=== PATIENT | female | born 1975 | race Caucasian/White ===

== ENCOUNTER → 2016-03-16 | Outpatient (CLI) | payer BC ==
--- NOTE | 2016-03-26 20:54 | P.PN ---
Progress Note - Text DATE OF SERVICE: 03/16/2016. CHIEF COMPLAINT: Follow-up gastric bypass. HISTORY OF PRESENT ILLNESS: Arianna Florian is a 40-year-old female who is status post Erlin-en-Y gastric bypass on 01/03/2016. She has not follow-up in approximately over 2 months at the bariatric center. Separately she comes in with very dark urine including chronic nausea and vomiting, abdominal pain, difficulty with solid foods. She states that she felt a pop along the left upper quadrant incision, which had become moderately painful. Now she presents for further evaluation and management. As a result of her illness, she states that she had missed work on March 14. Now she presents for further evaluation and management. She is presently receiving IV fluid hydration. Body mass index reduced from 43 down to 36. [place] body weight of 154 pounds. Initial weight 260 pounds. She has lost 43 pounds in approximately 2 months. Percent excess weight loss 38%. Since her last follow-up 2 months ago she has lost 30 pounds. PHYSICAL EXAM: VITAL SIGNS: 98.4, 64, 20, 134/82; 5 feet 6 inches, 225 pounds. Body mass index reduced from 43 down to 36. [place] body weight of 154 pounds. GENERAL: Well-developed female in no acute distress. ABDOMEN: No palpable incisional hernias. No signs of infection. MUSCULOSKELETAL: No clubbing, cyanosis, or edema. HEENT: No scleral icterus. Extraocular movements grossly intact. Moist buccal mucosa. NECK: Supple without lymphadenopathy. CHEST: Non-labored respirations with equal bilateral excursions. CARDIOVASCULAR: Regular rate and rhythm. NEURO: No focal or lateralizing signs. Cranial nerves II through XII grossly within normal limits. PSYCH: Appropriate affect. Alert and oriented to person, place and time. LABS: CBC is normal at 12.9. INR normal at 1.0. Electrolytes were within normal limits. Hemoglobin A1c reduced from 6.5 down to 5.1. Blood sugar glucose average is normal at 100. Total iron-binding capacity low at 243. Percent iron saturation low at 19.3%. Total protein low at 5.9. Albumin low at 3.4. HDL low at 39. Parathyroid hormone elevated at 88.4. Trace elements within normal limits. ASSESSMENT: 1. Morbid obesity due to excess calories. 2. Body mass index reduced from 43 down to 36. 3. Status post gastric bypass. 4. Left upper quadrant abdominal pain. 5. Dehydration. 6. Medical noncompliance to her dietary regimen following bariatric procedure. 7. Nausea with vomiting. 8. Dysphagia to solid foods. PLAN: 1. Recommend obtaining a CT of the abdomen and pelvis for increased in severity of her abdominal pain. 2. Also recommend continued IV fluid hydration as she reports very dark urine. 3. She has completed bariatric metabolic panel as she is now approximately 2 months out. 4. She has taken time off work secondary to her illness on March 14. 5. I recommend holding off return to work until primary symptoms are controlled. 6. Also recommend upper endoscopy with balloon dilatation for suspected gastrojejunal stricture given her dysphagia particularly to solid foods. 7. Recommend close observation.
== END | disposition home or self-care (01) ==

== ENCOUNTER → 2016-03-16 | Outpatient (CLI) | payer BC ==
--- NOTE | 2016-03-26 20:55 | P.PN ---
Progress Note - Text DATE OF SERVICE: 03/16/2016. CHIEF COMPLAINT: Follow-up gastric bypass. HISTORY OF PRESENT ILLNESS: Arianna Florian is a 40-year-old female who is status post Erlin-en-Y gastric bypass on 01/03/2016. She has not follow-up in approximately over 2 months at the bariatric center. Separately she comes in with very dark urine including chronic nausea and vomiting, abdominal pain, difficulty with solid foods. She states that she felt a pop along the left upper quadrant incision, which had become moderately painful. Now she presents for further evaluation and management. As a result of her illness, she states that she had missed work on March 14. Now she presents for further evaluation and management. She is presently receiving IV fluid hydration. Body mass index reduced from 43 down to 36. [place] body weight of 154 pounds. Initial weight 260 pounds. She has lost 43 pounds in approximately 2 months. Percent excess weight loss 38%. Since her last follow-up 2 months ago she has lost 30 pounds. PHYSICAL EXAM: VITAL SIGNS: 98.4, 64, 20, 134/82; 5 feet 6 inches, 225 pounds. Body mass index reduced from 43 down to 36. [place] body weight of 154 pounds. GENERAL: Well-developed female in no acute distress. ABDOMEN: No palpable incisional hernias. No signs of infection. MUSCULOSKELETAL: No clubbing, cyanosis, or edema. HEENT: No scleral icterus. Extraocular movements grossly intact. Moist buccal mucosa. NECK: Supple without lymphadenopathy. CHEST: Non-labored respirations with equal bilateral excursions. CARDIOVASCULAR: Regular rate and rhythm. NEURO: No focal or lateralizing signs. Cranial nerves II through XII grossly within normal limits. PSYCH: Appropriate affect. Alert and oriented to person, place and time. LABS: CBC is normal at 12.9. INR normal at 1.0. Electrolytes were within normal limits. Hemoglobin A1c reduced from 6.5 down to 5.1. Blood sugar glucose average is normal at 100. Total iron-binding capacity low at 243. Percent iron saturation low at 19.3%. Total protein low at 5.9. Albumin low at 3.4. HDL low at 39. Parathyroid hormone elevated at 88.4. Trace elements within normal limits. ASSESSMENT: 1. Morbid obesity due to excess calories. 2. Body mass index reduced from 43 down to 36. 3. Status post gastric bypass. 4. Left upper quadrant abdominal pain. 5. Dehydration. 6. Medical noncompliance to her dietary regimen following bariatric procedure. 7. Nausea with vomiting. 8. Dysphagia to solid foods. PLAN: 1. Recommend obtaining a CT of the abdomen and pelvis for increased in severity of her abdominal pain. 2. Also recommend continued IV fluid hydration as she reports very dark urine. 3. She has completed bariatric metabolic panel as she is now approximately 2 months out. 4. She has taken time off work secondary to her illness on March 14. 5. I recommend holding off return to work until primary symptoms are controlled. 6. Also recommend upper endoscopy with balloon dilatation for suspected gastrojejunal stricture given her dysphagia particularly to solid foods. 7. Recommend close observation.
== END | disposition home or self-care (01) ==
CPT/HCPCS: 99211

== ENCOUNTER 2016-03-17 10:22 | Day surgery (SDC) | payer BC ==
[2016-03-16 14:00] VITALS: BMI 36.3
--- NOTE | 2016-03-17 07:11 | P.GSHP ---
History of Present Illness H&P Date: 03/17/16 CHIEF COMPLAINT: Dysphagia. HISTORY OF PRESENT ILLNESS: The patient is a 40-year-old female who presents reports gastroesophageal reflux disease. Upper endoscopy was offered for further evaluation and management. PAST MEDICAL HISTORY: Please see list. PAST SURGICAL HISTORY: Please see list. MEDICATIONS: Please see list. ALLERGIES: Please see list. SOCIAL HISTORY: No illicit drug use FAMILY HISTORY: No reports of Crohn disease or ulcerative colitis. REVIEW OF ORGAN SYSTEMS: CONSTITUTIONAL: No reports of fevers or chills. GI: Denies any blood in stools or constipation. PHYSICAL EXAM: VITAL SIGNS: Stable GENERAL: Well-developed and pleasant in no acute distress. HEENT: No scleral icterus. Extraocular movements grossly intact. Moist buccal mucosa. NECK: Supple without lymphadenopathy. CHEST: Unlabored respirations. Equal bilateral excursions. CARDIOVASCULAR: Regular rate and rhythm. Distal 2+ pulses. ABDOMEN: Soft, nondistended. MUSCULOSKELETAL: No clubbing, cyanosis, or edema. ASSESSMENT: 1. Gastroesophageal reflux disease 2. Dysphagia. PLAN: 1. Recommend proceeding with an upper endoscopy. Past Medical History Past Medical History: Asthma, Hypertension, Thyroid Disorder Additional Past Medical History / Comment(s): spinal stenosis, herniated disk x2 , PREVIOUS HX OF DIABETES, NO PROBLEMS SINCE 50LB WEIGHT LOSS History of Any Multi-Drug Resistant Organisms: None Reported Past Surgical History: Appendectomy, Bariatric Surgery, Tonsillectomy, Tubal Ligation Additional Past Surgical History / Comment(s): left breast biopsy and lumpectomy benign, EGD 11/17/15, 01-03-16 LAP KRISTIN EN Y Past Anesthesia/Blood Transfusion Reactions: Postoperative Nausea & Vomiting ( PONV) Past Psychological History: Anxiety Smoking Status: Never smoker Past Alcohol Use History: Rare Past Drug Use History: None Reported - Past Family History Sister(s) Family Medical History: Cancer Additional Family Medical History / Comment(s): stage 3 melanoma Mother Family Medical History: Hyperlipidemia, Hypertension, Rheumatoid Arthritis (RA) Father Family Medical History: Diabetes Mellitus Additional Family Medical History / Comment(s): MAC DEGENERATION Medications and Allergies Home Medications Medication Instructions Recorded Confirmed Type Albuterol Inhaler [Ventolin Hfa 1 puff INHALATION RT-Q6H PRN 10/27/15 03/16/16 History Inhaler] Hydrochlorothiazide [Hydrodiuril] 50 mg PO DIRECTED PRN 10/27/15 03/16/16 History Losartan [Cozaar] 50 mg PO DAILY 10/27/15 03/16/16 History ALPRAZolam [Xanax] 1 mg PO HS 12/28/15 03/16/16 History Allergies Allergy/AdvReac Type Severity Reaction Status Date / Time amoxicillin trihydrate Allergy Rash/Hives Verified 03/16/16 13:56 [From Augmentin] Penicillins Allergy Rash/Hives Verified 03/16/16 13:56 potassium clavulanate Allergy Rash/Hives Verified 03/16/16 13:56 [From Augmentin]
[~2016-03-17 10:22] MED LIST: LACTATED RINGERS 1,000 ML IV SCH
[2016-03-17 10:37] VITALS: RESP 18; TEMP 97.5
[2016-03-17] MEDS ORDERED: LACTATED RINGERS 1,000 ML IV ONE ×2 (10:42→14:28)
[2016-03-17] MEDS ORDERED: SODIUM CHLORIDE 0.9% 1,000 ML IV SCH (13:47)
[2016-03-17] MEDS ORDERED: fentaNYL (PF) 50 MCG/ML 2 ML AMP IV ONE (14:12)
[2016-03-17] MEDS ORDERED: PROPOFOL 10 MG/ML 20 ML VIAL IV ONE (14:34)
--- NOTE | 2016-03-17 14:35 | P.PCN ---
Date of Procedure: 03/17/16 Description of Procedure: PREOPERATIVE DIAGNOSIS: Dysphagia. s/p Erlin-en-y gastric bypass. Nausea with vomiting. POSTOPERATIVE DIAGNOSIS: Dysphagia. s/p Erlin-en-y gastric bypass. Nausea with vomiting. Gastrojejunal stricture with chronic ulcer without perforation OPERATION: Esophagogastrojejunoscopy with balloon dilatation from 14 to 20 mm. SURGEON: Pita Gramajo MD ANESTHESIA: MAC. INDICATIONS: The patient is a 40-year-old female who presents with a history of dysphagia, gastric bypass including new-onset nausea and vomiting. Benefits and risks of the procedure were described. Informed consent was obtained. DESCRIPTION: The patient was brought into the endoscopy suite and laid in the left lateral decubitus position. After a timeout was confirmed, the procedure was initiated. An Olympus gastroscope was passed along the posterior oropharynx down to the distal esophagus where the squamocolumnar junction was unremarkable. The gastric pouch was entered. A gastrojejunal stricture of 14 mm was found as the adult gastroscope was 9.5 mm in size. A GRID balloon dilator was placed through the scope. Final insufflation up to 20 mm was performed with a total of 2 minutes. The scope was advanced up to 60 cm from the incisors into the Erlin limb. The mucosa of the gastrojejunal anastomosis was intact. However chronic gastrojejunal marginal ulcer was encountered. No full-thickness injury was encountered. The GI tract was desufflated. The patient tolerated the procedure well. FINDINGS: Stricture of approximately 12 mm encountered. Chronic gastrojejunal ulceration encountered. Successful balloon dilatation to 20 mm. RECOMMENDATIONS: Continue with omeprazole. Upper endoscopy as needed. Plan - Discharge Summary Discharge Medication List Albuterol Inhaler [Ventolin Hfa Inhaler] 1 puff INHALATION RT-Q6H PRN 10/27/15 [ History] Hydrochlorothiazide [Hydrodiuril] 50 mg PO DIRECTED PRN 10/27/15 [History] Losartan [Cozaar] 50 mg PO DAILY 10/27/15 [History] ALPRAZolam [Xanax] 1 mg PO HS 12/28/15 [History] HYDROcodone/APAP 7.5-325MG [Jakin 7.5-325] 1 each PO Q4H PRN #60 tab 01/04/16 [ Rx] Omeprazole 40 mg PO DAILY #90 capsule. 01/04/16 [Rx] Follow up Appointment(s)/Referral(s): Pita Gramajo MD [STAFF PHYSICIAN] - 03/20/16 Patient Instructions/Handouts: Esophageal Dilation (DC) Activity/Diet/Wound Care/Special Instructions: Liquid diet today. Regular diet tomorrow. Follow-up in procedures for IV fluids next week. Discharge Disposition: HOME SELF-CARE
[2016-03-17 15:06] VITALS: BP 136/84; PULSE 60
== END 2016-03-17 15:48 | disposition home or self-care (01) ==
LOC: ORWHC2ENDO 10:22
PROVIDERS: ATTEND Surgery Plastic and Reconstructive Surgery
DX: K22.2 Esophageal obstruction (principal); R13.10 Dysphagia, unspecified; K21.9 Gastro-esophageal reflux disease without esophagitis; I10 Essential (primary) hypertension; J45.909 Unspecified asthma, uncomplicated; E11.9 Type 2 diabetes mellitus without complications; E07.9 Disorder of thyroid, unspecified; F41.9 Anxiety disorder, unspecified; M48.00 Spinal stenosis, site unspecified; Z98.84 Bariatric surgery status; Z88.0 Allergy status to penicillin; Z79.82 Long term (current) use of aspirin; Z79.899 Other long term (current) drug therapy
CPT/HCPCS: 81025; 43249; J3010; J2704; C1726

== ENCOUNTER → 2016-03-20 | Outpatient (CLI) | payer BC ==
[2016-03-20 14:08] LABS: Blood Urea Nitrogen 13 mg/dL (7-17); Non-African American GFR(MDRD) >60 (>60 ml/min/1.73 sqM)
--- NOTE | 2016-03-20 14:34 | CT ---
EXAMINATION TYPE: CT abdomen pelvis w con DATE OF EXAM: 03/20/2016 2:15 PM COMPARISON: NONE HISTORY: Epigastric pain CT DLP: 1478.90 mGycm CONTRAST: CT scan of the abdomen and pelvis is performed with Oral Contrast and with IV Contrast, patient injec scott with 100 ml mL of Omnipaque 300. FINDINGS: LUNG BASES-: No visible nodule. No infiltrate. LIVER/GB: No calcified gallstones. No space occupying hepatic lesion. Biliary tree is of normal ca liber. PANCREAS: No inflammation. No distinct mass. SPLEEN: No splenic enlargement. No lesion seen. ADRENALS: No nodule. No thickening. KIDNEYS/BLADDER: No hydronephrosis. No nephrolithiasis. No disctinct renal mass. Urinary bladder g rossly unremarkable. BOWEL: Postoperative changes about the stomach. No evidence for leak or obstruction. No inflammatory process identified. Normal appendix. Normal bowel caliber. No inflammation. GENITAL ORGANS: No gross abnormality. LYMPH NODES: No greater than 1cm abdominal or pelvic lymph nodes are appreciated. AORTA: No significant abnormality. OSSEOUS STRUCTURES: No significant abnormality is seen. OTHER: No significant additional abnormality is seen. IMPRESSION: 1. Postoperative changes about the stomach. No evidence for leak or obstruction. No inflammatory proc ess identified.
== END | disposition home or self-care (01) ==
LOC: RADCTMAIN 12:57
PROVIDERS: ATTEND Surgery Plastic and Reconstructive Surgery
DX: K57.50 Diverticulosis of both small and large intestine without perforation or abscess without bleeding (principal); R10.12 Left upper quadrant pain; R10.13 Epigastric pain; Z98.890 Other specified postprocedural states
CPT/HCPCS: 82565; 84520; 74177; 36415; Q9967; 96360; 96361

== ENCOUNTER 2016-03-29 10:29 | Day surgery (SDC) | payer BC ==
[2016-03-22 17:56] VITALS: BMI 36.3
--- NOTE | 2016-03-29 08:02 | P.GSHP ---
History of Present Illness H&P Date: 03/29/16 CHIEF COMPLAINT: Cholecystitis HISTORY OF PRESENT ILLNESS: The patient is a 40-year-old female who presents with history of epigastric including right upper quadrant abdominal pain and clinical history of cholecystitis. Now she presents for surgical intervention. PAST MEDICAL HISTORY: Please see list PAST SURGICAL HISTORY: Please see list MEDICATIONS: Please see list ALLERGIES: Denies. SOCIAL HISTORY: No illicit drug use or recent tobacco use FAMILY HISTORY: Pertinent for gallbladder disease REVIEW OF ORGAN SYSTEMS: CONSTITUTIONAL: No reports of fevers or chills. HEENT: Denies any troubles with the vision or hearing. ENDOCRINE: No reports of hypothyroidism. No diabetes. RESPIRATORY: No recent pneumonias. CARDIOVASCULAR: Denies chest pain or palpitations GI: No blood in stools or constipation. MUSCULOSKELETAL: Has occasional joint pain including back pain. NEURO: No seizure disorders or headaches. No recent stroke. PSYCH: No depression or suicidal ideation. HEMATOLOGIC: No personal or family history of DVTs or pulmonary emboli. PHYSICAL EXAM: VITAL SIGNS: Afebrile vital signs stable GENERAL: Well-developed pleasant in no acute distress. HEENT: No scleral icterus. Extraocular movements grossly intact. Moist buccal mucosa. NECK: Supple without lymphadenopathy. CHEST: Unlabored respirations. Equal bilateral excursions. CARDIOVASCULAR: Regular rate regular rhythm rhythm. Distal 2+ pulses. ABDOMEN: Soft, nondistended. Tender along the epigastrium and right upper quadrant. MUSCULOSKELETAL: No clubbing, cyanosis, or edema. NEURO: Cranial nerves II to XII within normal limits. No focal or lateralizing signs. PSYCH: Alert and oriented to person, place and time. ASSESSMENT: 1. Epigastric and right upper quadrant abdominal pain 2. Chronic cholecystitis 3. Symptomatic gallstones. PLAN: 1. Will need a laparoscopic cholecystectomy possible open. Benefits and risks were described. 2. Heparin for DVT prophylaxis 5000 units. 3. Antibiotic prophylaxis. Past Medical History Past Medical History: Asthma, Hypertension Additional Past Medical History / Comment(s): spinal stenosis, herniated disk x2 , previous hx of thyroid problems, PREVIOUS HX OF DIABETES, NO PROBLEMS SINCE 50LB WEIGHT LOSS History of Any Multi-Drug Resistant Organisms: None Reported Past Surgical History: Appendectomy, Bariatric Surgery, Tonsillectomy, Tubal Ligation Additional Past Surgical History / Comment(s): left breast biopsy and lumpectomy benign, EGD 11/17/15, 01-03-16 LAP KRISTIN EN Y, EGD 03-17-15 WITH DILATION Past Anesthesia/Blood Transfusion Reactions: Postoperative Nausea & Vomiting ( PONV) Past Psychological History: Anxiety Smoking Status: Never smoker Past Alcohol Use History: Rare Past Drug Use History: None Reported - Past Family History Sister(s) Family Medical History: Cancer Additional Family Medical History / Comment(s): stage 3 melanoma Mother Family Medical History: Hyperlipidemia, Hypertension, Rheumatoid Arthritis (RA) Father Family Medical History: Diabetes Mellitus Additional Family Medical History / Comment(s): MAC DEGENERATION Medications and Allergies Home Medications Medication Instructions Recorded Confirmed Type Albuterol Inhaler [Ventolin Hfa 1 puff INHALATION RT-Q6H PRN 10/27/15 03/22/16 History Inhaler] Hydrochlorothiazide [Hydrodiuril] 50 mg PO DIRECTED PRN 10/27/15 03/22/16 History Losartan [Cozaar] 50 mg PO DAILY 10/27/15 03/22/16 History ALPRAZolam [Xanax] 1 mg PO HS 12/28/15 03/22/16 History Allergies Allergy/AdvReac Type Severity Reaction Status Date / Time amoxicillin trihydrate Allergy Rash/Hives Verified 03/22/16 17:52 [From Augmentin] Penicillins Allergy Rash/Hives Verified 03/22/16 17:52 potassium clavulanate Allergy Rash/Hives Verified 03/22/16 17:52 [From Augmentin]
[~2016-03-29 10:29] MED LIST changes: +CLINDAMYCIN 900 MG in DEXTROSE 5% IN WATER 50 ML IVPB ONE; +DEXAMETHASONE SOD PHOSPHATE 10 MG/ML 1 ML VIAL IV ONE; +HEPARIN SODIUM,PORCINE 5,000 UNIT/ML 1 ML VIAL SQ ONE; +LIDOCAINE 1% 20 ML VIAL (10MG/ML) FOR IV START INTRADERMA PRN; +MIDAZOLAM 2 MG/2 ML VIAL IV PRN; +ONDANSETRON 4 MG/2 ML VIAL IVP ONE; +SCOPOLAMINE 1.5MG/72HR PATCH TRANSDERM ONE
[2016-03-29 10:55] VITALS: RESP 16
[2016-03-29] MEDS ORDERED: fentaNYL (PF) 50 MCG/ML 2 ML AMP ONE (11:25)
[2016-03-29] MEDS ORDERED: NEOSTIGMINE 1 MG/ML 10 ML VIAL ONE (11:25)
[2016-03-29] MEDS ORDERED: MIDAZOLAM 2 MG/2 ML VIAL ONE (11:25)
[2016-03-29] MEDS ORDERED: SUCCINYLCHOLINE CHLORIDE 100 MG/5 ML SYR IV ONE (11:25)
[2016-03-29] MEDS ORDERED: LIDOCAINE 1% INJ 10MG/ML (20 ML MDV) ONE (11:25)
[2016-03-29] MEDS ORDERED: GLYCOPYRROLATE 0.2 MG/ML 2 ML VIAL ONE (11:25)
[2016-03-29] MEDS ORDERED: ROCURONIUM BROMIDE 10 MG/ML 10 ML VIAL IV ONE (11:25)
[2016-03-29] MEDS ORDERED: PROPOFOL 10 MG/ML 20 ML VIAL IV ONE (11:25)
[2016-03-29] MEDS ORDERED: BUPIVACAIN-EPI 0.25%-1:200,000 30 ML VIAL SQ ONE ×2 (11:45→11:47)
--- NOTE | 2016-03-29 12:15 | P.OP ---
Date of Procedure: 03/29/16 Description of Procedure: SURGEON: JAMIL DELUCA MD SHOP MANAGER: None. PREOPERATIVE DIAGNOSES: 1. Chronic Cholecystitis. 2. Essential hypertension. 3. Morbid obesity, BMI 36.3. 4. History of sleeve gastrectomy. POSTOPERATIVE DIAGNOSES: 1. Chronic Cholecystitis. 2. Essential hypertension. 3. Morbid obesity, BMI 36.3. 4. History of sleeve gastrectomy. 5. Symptomatic gallstones. OPERATION: Laparoscopic cholecystectomy ANESTHESIA: General with 30 mL 0.25% Marcaine with epinephrine. ESTIMATED BLOOD LOSS: 10 mL. SPECIMENS REMOVED: Gallbladder. COMPLICATIONS: None. INDICATIONS: The patient is a 40-year-old female who presents with chronic cholecystitis. Surgical intervention with a laparoscopic cholecystectomy was described at length including injury to the biliary tree, bleeding, infection, need for further surgery. Informed consent was obtained. DESCRIPTION OF THE PROCEDURE: The patient was brought to the operating room, laid in supine position. After general induction, the abdomen was prepped and draped in a standard sterile fashion. Prior to incision, a timeout protocol was confirmed with surgical team regarding patient's name, procedure to be performed including preoperative medications for which she had received heparin 5000 units subcutaneously as well as bilateral SCDs for DVT prophylaxis. A transverse 5 mm incision was made above the umbilicus and off to the right of the midline. Please note the skin was localized prior to incision. A 0 degree 5-mm laparoscopic trocar entry was performed and entered into the peritoneal cavity. Diagnostic laparoscopy confirmed no injury to bowel, viscera or mesentery. The liver serosa was completely unremarkable. Next, two 5 mm trocars were placed along the right costal margin followed by a 11 mm port at the left upper quadrant. The patient was placed in steep reverse Trendelenburg position with the right side up. The gallbladder fundus was retracted over the dome of the liver. Initial attention was brought to the infundibulum which was gently retracted in the inferior lateral approach. Using a Kittner, the cystic duct including the cystic artery was carefully skeletonized. Using a large clip select banker 2 clips were placed proximally, and 2 clip was placed distally along the cystic duct and then cut. Again care was taken to avoid any injury to the biliary tree as the common bile duct was clearly visualized during this portion of dissection. Next, the cystic artery was clipped twice proximally, once distally and then cauterized. The cystic duct was dilated at 7 mm. The cystic structure was divided using a Harmonic scalpel. Electro-Bovie cautery was used to remove the gallbladder from the hepatic fossa without decompression of the gallbladder. Hemostasis was checked and found to be adequate. The gallbladder was removed from the abdominal cavity using an Endo Catch bag and passed off for further pathological analysis. All instruments and pneumoperitoneum were removed from the abdominal cavity. The fascial defect was less than 8 mm for the 11-mm port site. The rest of incisions were reapproximated using 4-0 Monocryl in an interrupted subcuticular fashion. A total of 30 mL of 0.25% Marcaine with epinephrine was infiltrated to all wounds for postop analgesia. Dermabond was applied to the skin. At the end of the procedure, needle, sponge, and instrument count was verified correct by certified surgical first assistant. The patient had tolerated the procedure well and was taken to postanesthesia care unit in stable condition. Intraoperative films were discussed and reviewed with the patient's family who were pleased with the level of care. FINDINGS: 1. Chronic cholecystitis. 2. Unremarkable liver surface. 3. Palpated 1 cm gallstone. Plan - Discharge Summary Discharge Medication List Albuterol Inhaler [Ventolin Hfa Inhaler] 1 puff INHALATION RT-Q6H PRN 10/27/15 [ History] Hydrochlorothiazide [Hydrodiuril] 50 mg PO DIRECTED PRN 10/27/15 [History] Losartan [Cozaar] 50 mg PO DAILY 10/27/15 [History] ALPRAZolam [Xanax] 1 mg PO HS 12/28/15 [History] HYDROcodone/APAP 7.5-325MG [[place] 7.5-325] 1 each PO Q4H PRN #60 tab 01/04/16 [ Rx] Omeprazole 40 mg PO DAILY #90 capsule. 01/04/16 [Rx] Patient Instructions/Handouts: Scopolamine (Absorbed through the skin)
[2016-03-29] MEDS ORDERED: HYDROcodone/APAP 5-325MG 1 EACH TAB PO PRN (12:18)
[2016-03-29] MEDS ORDERED: NALOXONE 0.4 MG/ML 1 ML VIAL IV PRN (12:18)
[2016-03-29] MEDS ORDERED: PROMETHAZINE 25 MG TAB PO PRN (12:18)
[2016-03-29 12:35] VITALS: TEMP 97.8
[2016-03-29 12:41] LABS: Glucose,Whole Blood 109 mg/dL (75-99)
[2016-03-29] MEDS: HYDROmorphone 1 MG/ML 1 ML SYRINGE IVP PRN ×3 (12:50→13:18)
[2016-03-29] MEDS ORDERED: LACTATED RINGERS 1,000 ML IV ONE (13:31)
[2016-03-29] MEDS ORDERED: PROMETHAZINE INJ 25 MG/ML 1 ML VIAL IVPB ONE (14:35)
[2016-03-29] MEDS ORDERED: HYDROcodone/APAP 5-325MG 1 EACH TAB PO ONE (15:20)
[2016-03-29 15:49] VITALS: BP 131/77; PULSE 54
== END 2016-03-29 16:08 | disposition home or self-care (01) ==
LOC: OR 10:29
PROVIDERS: ATTEND Surgery Plastic and Reconstructive Surgery
DX: K80.10 Calculus of gallbladder with chronic cholecystitis without obstruction (principal); I10 Essential (primary) hypertension; E66.01 Morbid (severe) obesity due to excess calories; Z68.36 Body mass index [BMI] 36.0-36.9, adult; Z98.84 Bariatric surgery status; J45.909 Unspecified asthma, uncomplicated; Z79.899 Other long term (current) drug therapy; Z88.0 Allergy status to penicillin; F41.9 Anxiety disorder, unspecified
CPT/HCPCS: 81025; 88304; 47562; J2250; J1644; J1100; J2550; J2710; J2405; J2001; J3010; J1170; J0330; J2704

== ENCOUNTER → 2016-08-02 | Outpatient (CLI) | payer BC ==
[2016-08-02 13:42] VITALS: BP 142/88; PULSE 65; RESP 16; TEMP 97.9
[2016-08-02 14:07] VITALS: BMI 29.5
[2016-08-02 16:05] LABS: CH 30.4; CHCM 33.1; HCT 43.8 % (34.0-46.0); HDW 2.46; HGB 14.5 gm/dL (11.4-16.0); MCH 30.5 pg (25.0-35.0); MCHC 33.1 g/dL (31.0-37.0); MCV 92.1 fL (80.0-100.0); Mean Platelet Volume 7.6; RBC 4.75 m/uL (3.80-5.40); RDW 13.4 % (11.5-15.5)
[2016-08-02 16:11] LABS: Prothrombin Time 10.6 sec (9.0-12.0)
[2016-08-02 16:34] LABS: ALT 27 U/L (9-52); AST 19 U/L (14-36); Alkaline Phosphatase 85 U/L (38-126); Anion Gap 10 mmol/L; Blood Urea Nitrogen 12 mg/dL (7-17); Calcium 9.7 mg/dL (8.4-10.2); Carbon Dioxide 27 mmol/L (22-30); Chloride 104 mmol/L (98-107); Cholesterol 137 mg/dL (<200); Glucose 83 mg/dL (74-99); HDL Cholesterol 60 mg/dL (40-60); Iron 56 ug/dL (37-170); Magnesium 1.9 mg/dL (1.6-2.3); Non-African American GFR(MDRD) >60 (>60 ml/min/1.73 sqM); Phosphorous 4.1 mg/dL (2.5-4.5); Potassium 4.3 mmol/L (3.5-5.1); Sodium 141 mmol/L (137-145); Total Bilirubin 0.4 mg/dL (0.2-1.3); Total Protein 7.1 g/dL (6.3-8.2); Triglycerides 76 mg/dL (<150)
[2016-08-02 16:45] LABS: Prealbumin 21 mg/dL (18-36); Total Iron Binding Capacity 259 ug/dL (265-497)
[2016-08-02 17:33] LABS: Vitamin B12 239 pg/mL (239-931)
[2016-08-02 20:54] LABS: Hemoglobin A1C 5.1 % (4.2-6.1)
[2016-08-08 15:12] LABS: Selenium 149 mcg/L (63-160)
== END | disposition home or self-care (01) ==
LOC: BARWHC3 13:24
PROVIDERS: ATTEND Surgery Plastic and Reconstructive Surgery
DX: E66.01 Morbid (severe) obesity due to excess calories (principal); Z68.29 Body mass index [BMI] 29.0-29.9, adult; Z71.3 Dietary counseling and surveillance
CPT/HCPCS: 36415; 80053; 80061; 82306; 82525; 82607; 82728; 82746; 83036; 83540; 83550; 83735; 83970; 84100; 84134; 84255; 84425; 84443; 84590; 84630; 85027; 85610; 85730; 97803; 99211

== ENCOUNTER → 2017-01-31 | Outpatient (CLI) | payer BC ==
[2017-01-31 16:11] VITALS: BP 159/89; PULSE 56; TEMP 97.5; BMI 26.3
[2017-01-31 17:52] LABS: CH 30.2; CHCM 33.1; HCT 43.4 % (34.0-46.0); HDW 2.37; HGB 13.9 gm/dL (11.4-16.0); MCH 29.4 pg (25.0-35.0); MCV 91.9 fL (80.0-100.0); Mean Platelet Volume 7.9; RBC 4.72 m/uL (3.80-5.40); WBC 8.9 k/uL (3.8-10.6)
[2017-01-31 18:01] LABS: Partial Thromboplastin Time 24.7 sec (22.0-30.0); Prothrombin Time 9.8 sec (9.0-12.0)
[2017-01-31 18:03] LABS: ALT 36 U/L (9-52); AST 19 U/L (14-36); Alkaline Phosphatase 89 U/L (38-126); Anion Gap 11 mmol/L; Blood Urea Nitrogen 12 mg/dL (7-17); Calcium 9.6 mg/dL (8.4-10.2); Carbon Dioxide 29 mmol/L (22-30); Chloride 102 mmol/L (98-107); Cholesterol 160 mg/dL (<200); Glucose 81 mg/dL (74-99); HDL Cholesterol 75 mg/dL (40-60); Non-African American GFR(MDRD) >60 (>60 ml/min/1.73 sqM); Sodium 142 mmol/L (137-145); Total Bilirubin 0.3 mg/dL (0.2-1.3); Total Protein 7.2 g/dL (6.3-8.2)
[2017-02-01 01:09] LABS: Iron Saturation 12.31 (12.00-45.00); Iron(FE) 33 ug/dL (50-170); Total Iron Binding Capacity 268 ug/dL (228-460)
[2017-02-07 18:30] LABS: Selenium 149 mcg/L (63-160)
--- NOTE | 2017-03-17 21:35 | P.PN ---
Subjective Progress Note Date: 01/31/17 DATE OF SERVICE: 01/31/2017. CHIEF COMPLAINT: Follow-up gastric bypass. HISTORY OF PRESENT ILLNESS: HISTORY OF PRESENT ILLNESS: Arianna Florian is a 41- year-old female who is status post Erlin-en-Y gastric bypass on 01/03/2016. She is over 1 year out. She reports feeling very tired. She has lost over 100+ pounds. She reports her back pain has started as a result of her abdominal skin. Her diabetes is completely resolved as of July 2016. She is off all blood pressure medications. She has decreased use of her inhalers. She is off Artemas. She comes in with severe and chronic skin condition of her abdomen otherwise panniculitis. She has been on nystatin powder for well over a year. Now she presents for further evaluation and management. Body mass index reduced from 43.2 to 26.3. [place] body weight of 154 pounds. Initial weight 269 pounds. She has lost 105 pounds in 13 months. Percent excess weight loss 91%. She has lost also another 20 pounds in 6 months. PAST MEDICAL HISTORY: 1. Anxiety. 2. Asthma. 3. Hypertension, resolved. 4. Insulin resistance, resolved. 5. Hypothyroidism. 6. Vitamin D deficiency. 7. Chronic back pain. 8. Diabetes type 2, resolved. 9. Depression 10. Panniculitis. PAST SURGICAL HISTORY: 1. Appendectomy. 2. Tonsillectomy. 3. Tubal ligation. 4. Left breast biopsy with lumpectomy. 5. Upper endoscopy. 6. Laparoscopic cholecystectomy. MEDICATIONS: 1. Albuterol inhaler. 2. Xanax. 3. Ultram. 4. Lexapro. ALLERGIES: 1. AUGMENTIN. 2. PENICILLIN. SOCIAL HISTORY: Lifelong non tobacco user. FAMILY HISTORY: Pertinent for diabetes, including obesity. REVIEW OF SYSTEMS: GASTROINTESTINAL: Gastroesophageal reflux disease now resolved. No reports of dumping syndrome. RESPIRATORY: History of obstructive sleep apnea now completely resolved. MUSCULOSKELETAL: Has diffuse osteoarthritis with increased lower back pain. ENDOCRINE: History of diabetes now resolved. Has hypothyroidism. CONSTITUTIONAL: Body mass index reduced from 43.2 to 26.3. [place] body weight of 154 pounds. Initial weight 269 pounds. She has lost 105 pounds in approximately 13 months. Percent excess weight loss 91 %. She has lost also another 20 pounds in 6 months. She is 10 pounds overweight. HEENT: No reports of active dysphagia. No reports of troubles with vision or hearing. CARDIOVASCULAR: Hypertension resolved. No reports of chest pain or heart attack. NEURO: No reports of stroke or seizure disorders. PSYCH: No reports of depression with suicidal ideation. HEMATOLOGIC: No reports of DVTs or pulmonary emboli. PHYSICAL EXAM: VITAL SIGNS: 5 feet 6.25 inches, 164 pounds. Vital Signs Temp 97.5 F L 01/31/17 16:07 Pulse 56 L 01/31/17 16:07 Resp BP 159/89 01/31/17 16:07 Pulse Ox GENERAL: Well-developed female in no acute distress. ABDOMEN: No palpable incisional hernias. Moderate panniculitis. Weight of pannus over 8 pounds. Pannus hangs over her pubis 10 cm. MUSCULOSKELETAL: No clubbing, cyanosis, or edema. HEENT: No scleral icterus. Extraocular movements grossly intact. Moist buccal mucosa. NECK: Supple without lymphadenopathy. CHEST: Non-labored respirations with equal bilateral excursions. CARDIOVASCULAR: Regular rate and rhythm. NEURO: No focal or lateralizing signs. Cranial nerves II through XII grossly within normal limits. PSYCH: Appropriate affect. Alert and oriented to person, place and time. SKIN: Good skin turgor. Well perfused. ASSESSMENT: 1. Morbid obesity due to excess calories. 2. Body mass index 43.2 decreased to 26.3. 3. Dietary surveillance and counseling. 4. Depression, stable 5. Hypothyroidism. 6. Hypertensive heart disease, resolved. 7. Osteoarthritis of the lower back. 8. Osteoarthritis of the right knee, resolved. 9. History of bilateral lower extremity edema, resolved. 10. Diabetes type 2, non-insulin dependent without complication, resolved. 11. Obstructive sleep apnea, resolved. 12. Panniculitis. 13. Status post gastric bypass. 14. Status post massive weight loss, 105 pounds. PLAN: 1. Recommend bariatric metabolic panel. 2. She has lost over 100+ pounds in over a year. Separately, she has severe panniculitis. Despite this treatment with nystatin powder, recommend evaluation for panniculectomy. 3. For her weight loss, she still continues to lose weight. Recommend stable weight loss prior to panniculectomy. 4. Inpatient hospitalization more than 2 nights described. 5. DVT prophylaxis. 6. Antibiotic prophylaxis. 7. Benefits and risks of panniculectomy including but not limited to bleeding, infection, cosmetic deformity, flap failure, seromas, placement JOHANNY drains were described in detail including loss of umbilicus, and chronic pain were described. Objective - Vital Signs Vital signs: Vital Signs Temp 97.5 F L 01/31/17 16:07 Pulse 56 L 01/31/17 16:07 Resp BP 159/89 01/31/17 16:07 Pulse Ox Intake & Output 01/30/17 01/31/17 01/31/17 18:59 06:59 18:59 Weight 74.48 kg - Labs CBC & Chem 7: 01/31/17 17:05 01/31/17 17:05
--- NOTE | 2017-03-17 21:37 | P.PN ---
Progress Note - Text Progress Note Date: 01/31/17 Laboratory Last Values WBC 8.9 k/uL (3.8-10.6) 01/31/17 17:05 RBC 4.72 m/uL (3.80-5.40) 01/31/17 17:05 Hgb 13.9 gm/dL (11.4-16.0) 01/31/17 17:05 Hct 43.4 % (34.0-46.0) 01/31/17 17:05 MCV 91.9 fL (80.0-100.0) 01/31/17 17:05 MCH 29.4 pg (25.0-35.0) 01/31/17 17:05 MCHC 32.0 g/dL (31.0-37.0) 01/31/17 17:05 RDW 14.0 % (11.5-15.5) 01/31/17 17:05 Plt Count 353 k/uL (150-450) 01/31/17 17:05 PT 9.8 sec (9.0-12.0) 01/31/17 17:05 INR 1.0 (<1.2) 01/31/17 17:05 APTT 24.7 sec (22.0-30.0) 01/31/17 17:05 Sodium 142 mmol/L (137-145) 01/31/17 17:05 Potassium 4.0 mmol/L (3.5-5.1) 01/31/17 17:05 Chloride 102 mmol/L (98-107) 01/31/17 17:05 Carbon Dioxide 29 mmol/L (22-30) 01/31/17 17:05 Anion Gap 11 mmol/L 01/31/17 17:05 BUN 12 mg/dL (7-17) 01/31/17 17:05 Creatinine 0.70 mg/dL (0.52-1.04) 01/31/17 17:05 Est GFR (MDRD) Af Amer >60 (>60 ml/min/1.73 sqM) 01/31/17 17:05 Est GFR (MDRD) Non-Af >60 (>60 ml/min/1.73 sqM) 01/31/17 17:05 Glucose 81 mg/dL (74-99) 01/31/17 17:[address] Glu mg/dL 105 01/31/17 17:05 Hemoglobin A1c 5.3 % (4.0-6.0) 01/31/17 17:05 Calcium 9.6 mg/dL (8.4-10.2) 01/31/17 17:05 Phosphorus 4.0 mg/dL (2.5-4.5) 01/31/17 17:05 Magnesium 2.0 mg/dL (1.6-2.3) 01/31/17 17:05 Iron 33 ug/dL (50-170) L 01/31/17 17:05 TIBC 268 ug/dL (228-460) 01/31/17 17:05 Iron Saturation 12.31 (12.00-45.00) 01/31/17 17:05 Ferritin 52.7 ng/mL (10.0-291.0) 01/31/17 17:05 Total Bilirubin 0.3 mg/dL (0.2-1.3) 01/31/17 17:05 AST 19 U/L (14-36) 01/31/17 17:05 ALT 36 U/L (9-52) 01/31/17 17:05 Alkaline Phosphatase 89 U/L (38-126) 01/31/17 17:05 Total Protein 7.2 g/dL (6.3-8.2) 01/31/17 17:05 Albumin 4.2 g/dL (3.5-5.0) 01/31/17 17:05 Prealbumin 23.0 mg/dL (18.0-42.0) 01/31/17 17:05 Triglycerides 59 mg/dL (<150) 01/31/17 17:05 Cholesterol 160 mg/dL (<200) 01/31/17 17:05 LDL Cholesterol, Calc 73 mg/dL (0-99) 01/31/17 17:05 HDL Cholesterol 75 mg/dL (40-60) H 01/31/17 17:05 Vitamin A 43 ug/dL (38-106) 01/31/17 17:05 Vitamin B1 62 ug/L (38-122) 01/31/17 17:05 Vitamin B12 243.0 pg/mL (200.0-944.0) 01/31/17 17:05 Vitamin D 25-Hydroxy 28.2 ng/mL (30.0-100.0) L 01/31/17 17:05 Folate >24.0 ng/mL 01/31/17 17:05 TSH 3.390 mIU/L (0.465-4.680) 01/31/17 17:05 PTH Intact 43.2 pg/mL (14.0-72.0) 01/31/17 17:05 Copper 1469 ug/L (810-1990) 01/31/17 17:05 Selenium 149 mcg/L (63-160) 01/31/17 17:05 Zinc 81 ug/dL (60-130) 01/31/17 17:05 Findings consistent with iron deficiency anemia, vitamin D deficiency.
== END | disposition home or self-care (01) ==
LOC: BARWHC3 14:37
PROVIDERS: ATTEND Surgery Plastic and Reconstructive Surgery
DX: E66.01 Morbid (severe) obesity due to excess calories (principal); E89.1 Postprocedural hypoinsulinemia; D50.8 Other iron deficiency anemias; K90.89 Other intestinal malabsorption; E55.9 Vitamin D deficiency, unspecified; K76.9 Liver disease, unspecified; T56.894A Toxic effect of other metals, undetermined, initial encounter
CPT/HCPCS: 36415; 80053; 80061; 82306; 82525; 82607; 82728; 82746; 83036; 83540; 83550; 83735; 83970; 84100; 84134; 84255; 84425; 84443; 84590; 84630; 85027; 85610; 85730; 97803; 99211

== ENCOUNTER → 2017-03-14 | Outpatient (CLI) | payer BC ==
[2017-03-14 14:02] VITALS: BP 147/90; PULSE 72; RESP 16; TEMP 98; BMI 25.6
--- NOTE | 2017-04-28 21:34 | P.PN ---
Subjective Progress Note Date: 03/14/17 DATE OF SERVICE: 03/14/2017 CHIEF COMPLAINT: Panniculitis HISTORY OF PRESENT ILLNESS: HISTORY OF PRESENT ILLNESS: Arianna Florian is a 41- year-old female who is status post Erlin-en-Y gastric bypass on 01/03/2016. She is over 1 year out. She has lost 109 pounds. She has also another 4 pounds in 1 month. She comes in with complaints of chronic panniculitis. She has been treated well over a year with prescribed powders minimal improvement. She reports lower back pain has resolved. Her weight has been stable. Body mass index reduced from 43.2 to 25.6. [place] body weight of 154 pounds. Initial weight 269 pounds. Percent excess weight loss 95%. PAST MEDICAL HISTORY: 1. Anxiety. 2. Asthma. 3. Hypertension, resolved. 4. Insulin resistance, resolved. 5. Hypothyroidism. 6. Vitamin D deficiency. 7. Chronic back pain. 8. Diabetes type 2, resolved. 9. Depression 10. Panniculitis. PAST SURGICAL HISTORY: 1. Appendectomy. 2. Tonsillectomy. 3. Tubal ligation. 4. Left breast biopsy with lumpectomy. 5. Upper endoscopy. 6. Laparoscopic cholecystectomy. MEDICATIONS: 1. Albuterol inhaler. 2. Xanax. 3. Ultram. 4. Lexapro. ALLERGIES: 1. AUGMENTIN. 2. PENICILLIN. SOCIAL HISTORY: Lifelong non tobacco user. FAMILY HISTORY: Pertinent for diabetes, including obesity. REVIEW OF SYSTEMS: GASTROINTESTINAL: Gastroesophageal reflux disease now resolved. No reports of dumping syndrome. RESPIRATORY: History of obstructive sleep apnea now completely resolved. MUSCULOSKELETAL: Has diffuse osteoarthritis with increased lower back pain. ENDOCRINE: History of diabetes now resolved. Has hypothyroidism. CONSTITUTIONAL: Body mass index reduced from 43.2 to 25.6. [place] body weight of 154 pounds. Initial weight 269 pounds. She has lost 109 pounds in approximately 14 months. Percent excess weight loss 95%. She has lost also another 4 pounds in 1 month. HEENT: No reports of active dysphagia. No reports of troubles with vision or hearing. CARDIOVASCULAR: Hypertension resolved. No reports of chest pain or heart attack. NEURO: No reports of stroke or seizure disorders. PSYCH: No reports of depression with suicidal ideation. HEMATOLOGIC: No reports of DVTs or pulmonary emboli. PHYSICAL EXAM: VITAL SIGNS: 5 feet 6.25 inches, 160 pounds. Vital Signs Temp 98.0 F 03/14/17 13:58 Pulse 72 03/14/17 13:58 Resp 16 03/14/17 13:58 BP 147/90 03/14/17 13:58 Pulse Ox GENERAL: Well-developed female in no acute distress. ABDOMEN: No palpable incisional hernias. Moderate panniculitis. Weight of pannus over 5 to 8 pounds. Pannus hangs over her pubis. MUSCULOSKELETAL: No clubbing, cyanosis, or edema. HEENT: No scleral icterus. Extraocular movements grossly intact. Moist buccal mucosa. NECK: Supple without lymphadenopathy. CHEST: Non-labored respirations with equal bilateral excursions. CARDIOVASCULAR: Regular rate and rhythm. NEURO: No focal or lateralizing signs. Cranial nerves II through XII grossly within normal limits. PSYCH: Appropriate affect. Alert and oriented to person, place and time. SKIN: Good skin turgor. Well perfused. ASSESSMENT: 1. Morbid obesity due to excess calories. 2. Body mass index 43.2 decreased to 25.6. 3. Dietary surveillance and counseling. 4. Depression, stable 5. Hypothyroidism. 6. Hypertensive heart disease, resolved. 7. Osteoarthritis of the lower back. 8. Osteoarthritis of the right knee, resolved. 9. History of bilateral lower extremity edema, resolved. 10. Diabetes type 2, non-insulin dependent without complication, resolved. 11. Obstructive sleep apnea, resolved. 12. Panniculitis. 13. Status post gastric bypass. 14. Status post massive weight loss, 109 pounds. PLAN: 1. She is maintained weight loss over 100+ pounds in more than one year. Recommend evaluation for panniculectomy. 2. DVT prophylaxis. 3. Antibiotic prophylaxis. 4. Benefits and risks panniculectomy were described including flap failure, bleeding, infection, cosmetic deformity, need for further surgery which she demonstrated understanding. 5. Strict no lifting over 4 pounds in 4 weeks described. 6. Inpatient hospitalization 2 nights. Objective - Vital Signs Vital signs: Vital Signs Temp 98.0 F 03/14/17 13:58 Pulse 72 03/14/17 13:58 Resp 16 03/14/17 13:58 BP 147/90 03/14/17 13:58 Pulse Ox Intake & Output 03/13/17 03/14/17 03/14/17 18:59 06:59 18:59 Weight 72.631 kg
== END | disposition home or self-care (01) ==
LOC: BARWHC3 13:30
PROVIDERS: ATTEND Surgery Plastic and Reconstructive Surgery
DX: Z48.815 Encounter for surgical aftercare following surgery on the digestive system (principal); E66.01 Morbid (severe) obesity due to excess calories; F32.9 Major depressive disorder, single episode, unspecified; E03.9 Hypothyroidism, unspecified; M47.816 Spondylosis without myelopathy or radiculopathy, lumbar region; M79.3 Panniculitis, unspecified; R63.4 Abnormal weight loss; Z01.812 Encounter for preprocedural laboratory examination; Z71.3 Dietary counseling and surveillance; Z68.25 Body mass index [BMI] 25.0-25.9, adult; Z88.0 Allergy status to penicillin; Z79.899 Other long term (current) drug therapy; Z98.84 Bariatric surgery status
CPT/HCPCS: 99211

== ENCOUNTER 2017-04-05 11:06 | Inpatient (IN) | payer BC ==
[2017-03-27 16:25] VITALS: BMI 25.8
--- NOTE | 2017-04-05 06:25 | P.GSHP ---
History of Present Illness H&P Date: 04/05/17 DATE OF SERVICE: 04/05/2017. CHIEF COMPLAINT: Follow-up gastric bypass. HISTORY OF PRESENT ILLNESS: HISTORY OF PRESENT ILLNESS: Arianna Florian is a 41- year-old female who is status post Erlin-en-Y gastric bypass on 01/03/2016. She is over 1 year out. She comes in with severe and chronic skin condition of her abdomen otherwise panniculitis. She has been on nystatin powder for well over a year. Now she presents for further evaluation and management. PAST MEDICAL HISTORY: 1. Anxiety. 2. Asthma. 3. Hypertension, resolved. 4. Insulin resistance, resolved. 5. Hypothyroidism. 6. Vitamin D deficiency. 7. Chronic back pain. 8. Diabetes type 2, resolved. 9. Depression 10. Panniculitis. PAST SURGICAL HISTORY: 1. Appendectomy. 2. Tonsillectomy. 3. Tubal ligation. 4. Left breast biopsy with lumpectomy. 5. Upper endoscopy. 6. Laparoscopic cholecystectomy. MEDICATIONS: 1. Albuterol inhaler. 2. Xanax. 3. Ultram. 4. Lexapro. ALLERGIES: 1. AUGMENTIN. 2. PENICILLIN. SOCIAL HISTORY: Lifelong non tobacco user. FAMILY HISTORY: Pertinent for diabetes, including obesity. REVIEW OF SYSTEMS: GASTROINTESTINAL: Gastroesophageal reflux disease now resolved. No reports of dumping syndrome. RESPIRATORY: History of obstructive sleep apnea now completely resolved. MUSCULOSKELETAL: Has diffuse osteoarthritis with increased lower back pain. ENDOCRINE: History of diabetes now resolved. Has hypothyroidism. CONSTITUTIONAL: Body mass index reduced from 43.2 to 26.3. [place] body weight of 154 pounds. Initial weight 269 pounds. She has lost 109 pounds. HEENT: No reports of active dysphagia. No reports of troubles with vision or hearing. CARDIOVASCULAR: Hypertension resolved. No reports of chest pain or heart attack. NEURO: No reports of stroke or seizure disorders. PSYCH: No reports of depression with suicidal ideation. HEMATOLOGIC: No reports of DVTs or pulmonary emboli. PHYSICAL EXAM: VITAL SIGNS: 5 feet 6.25 inches, 160 pounds. GENERAL: Well-developed female in no acute distress. ABDOMEN: No palpable incisional hernias. Moderate panniculitis. Weight of pannus over 8 pounds. Pannus hangs over her pubis 10 cm. MUSCULOSKELETAL: No clubbing, cyanosis, or edema. HEENT: No scleral icterus. Extraocular movements grossly intact. Moist buccal mucosa. NECK: Supple without lymphadenopathy. CHEST: Non-labored respirations with equal bilateral excursions. CARDIOVASCULAR: Regular rate and rhythm. NEURO: No focal or lateralizing signs. Cranial nerves II through XII grossly within normal limits. PSYCH: Appropriate affect. Alert and oriented to person, place and time. SKIN: Good skin turgor. Well perfused. ASSESSMENT: 1. Morbid obesity due to excess calories. 2. Body mass index 43.2 decreased to 26.3. 3. Dietary surveillance and counseling. 4. Depression, stable 5. Hypothyroidism. 6. Hypertensive heart disease, resolved. 7. Osteoarthritis of the lower back. 8. Osteoarthritis of the right knee, resolved. 9. History of bilateral lower extremity edema, resolved. 10. Diabetes type 2, non-insulin dependent without complication, resolved. 11. Obstructive sleep apnea, resolved. 12. Panniculitis. 13. Status post gastric bypass. 14. Status post massive weight loss, 105 pounds. PLAN: 1. Inpatient hospitalization more than 2 nights described. 2. DVT prophylaxis. 3. Antibiotic prophylaxis. 4. Benefits and risks of panniculectomy including but not limited to bleeding, infection, cosmetic deformity, flap failure, seromas, placement JOHANNY drains were described in detail including loss of umbilicus, and chronic pain were described. Past Medical History Past Medical History: Asthma, Hypertension Additional Past Medical History / Comment(s): spinal stenosis, herniated disk x2 , PREVIOUS HX OF DIABETES-PRIOR TO WEIGHT LOSS History of Any Multi-Drug Resistant Organisms: None Reported Past Surgical History: Appendectomy, Bariatric Surgery, Cholecystectomy, Tonsillectomy, Tubal Ligation Additional Past Surgical History / Comment(s): left breast biopsy and lumpectomy benign, EGD 11/17/15, LAP ERLIN EN Y, Past Anesthesia/Blood Transfusion Reactions: Motion Sickness, Postoperative Nausea & Vomiting (PONV) Smoking Status: Never smoker - Past Family History Sister(s) Family Medical History: Cancer Additional Family Medical History / Comment(s): MELENOMA Mother Family Medical History: Hyperlipidemia, Hypertension, Rheumatoid Arthritis (RA) Father Family Medical History: Diabetes Mellitus Additional Family Medical History / Comment(s): MAC DEGENERATION Medications and Allergies Home Medications Medication Instructions Recorded Confirmed Type Albuterol Inhaler [Ventolin Hfa 1 puff INHALATION RT-Q6H PRN 10/27/15 03/27/17 History Inhaler] ALPRAZolam [Xanax] 1 mg PO HS 12/28/15 03/27/17 History Escitalopram [Lexapro] 20 mg PO DAILY 03/15/17 03/27/17 History traMADol HCL [Ultram] 50 mg PO Q6H PRN 03/15/17 03/27/17 History Allergies Allergy/AdvReac Type Severity Reaction Status Date / Time amoxicillin trihydrate Allergy Rash/Hives Verified 03/27/17 15:55 [From Augmentin] Penicillins Allergy Rash/Hives Verified 03/27/17 15:55 potassium clavulanate Allergy Rash/Hives Verified 03/27/17 15:55 [From Augmentin]
[~2017-04-05 11:06] MED LIST changes: +ACETAMINOPHEN IV (For NPO) 1,000 MG in EMPTY BAG 1 BAG IVPB ONE; +ACETAMINOPHEN TAB 500 MG TAB PO ONE; -CLINDAMYCIN 900 MG in DEXTROSE 5% IN WATER 50 ML IVPB ONE; +HYDROmorphone 2 MG/ML 1 ML SYRINGE IVP PRN; -LACTATED RINGERS 1,000 ML IV SCH; -LIDOCAINE 1% 20 ML VIAL (10MG/ML) FOR IV START INTRADERMA PRN; -SCOPOLAMINE 1.5MG/72HR PATCH TRANSDERM ONE; +ceFAZolin IN SWFI 2 GM/20 ML SYRINGE IVP ONE
[2017-04-05] MEDS: LACTATED RINGERS 1,000 ML IV SCH ×2 (11:48→18:18)
[2017-04-05] MEDS ORDERED: LIDOCAINE 1% 20 ML VIAL (10MG/ML) FOR IV START INTRADERMA ONE (11:48)
[2017-04-05] MEDS ORDERED: ONDANSETRON 4 MG/2 ML VIAL IVP ONE (11:50)
[2017-04-05] MEDS ORDERED: DEXAMETHASONE SOD PHOSPHATE 10 MG/ML 1 ML VIAL IV ONE (11:52)
[2017-04-05] MEDS ORDERED: SCOPOLAMINE 1.5MG/72HR PATCH TRANSDERM ONE (12:10)
[2017-04-05] MEDS ORDERED: SUCCINYLCHOLINE CHLORIDE 100 MG/5 ML SYR IV ONE (12:33)
[2017-04-05] MEDS ORDERED: HYDROmorphone (PF) 1 MG/ML ONE (12:33)
[2017-04-05] MEDS ORDERED: MIDAZOLAM 2 MG/2 ML VIAL ONE (12:33)
[2017-04-05] MEDS ORDERED: LIDOCAINE 1% INJ 10MG/ML (20 ML MDV) ONE (12:33)
[2017-04-05] MEDS ORDERED: fentaNYL (PF) 50 MCG/ML 2 ML AMP ONE (12:33)
[2017-04-05] MEDS ORDERED: PROPOFOL 10 MG/ML 20 ML VIAL IV ONE (12:33)
[2017-04-05] MEDS ORDERED: LACTATED RINGERS 1,000 ML IV ONE (13:40)
[2017-04-05] MEDS: HYDROmorphone 0.5 MG/0.5 ML SYRINGE IVP ONE ×4 (15:46→16:15)
[2017-04-05] MEDS ORDERED: ONDANSETRON 4 MG/2 ML VIAL IVP PRN (16:02)
[2017-04-05] MEDS ORDERED: TRIMETHOBENZAMIDE 100 MG/ML 2 ML VIAL IM PRN (16:02)
[2017-04-05] MEDS ORDERED: NALOXONE 0.4 MG/ML 1 ML VIAL IV PRN (16:02)
[2017-04-05] MEDS ORDERED: traMADol 50 MG TAB PO PRN (16:05)
[2017-04-05] MEDS ORDERED: ALBUTEROL NEBULIZED 2.5 MG/3 ML INHALATION PRN (16:05)
--- NOTE | 2017-04-05 16:11 | P.PCN ---
Date of Procedure: 04/05/17 Preoperative Diagnosis: Panniculitis Postoperative Diagnosis: Same, ventral hernia with incarcerated umbilical hernia Procedure(s) Performed: Panniculectomy, 5.4 pounds, ventral hernia repair 8 x 30 cm Anesthesia: GETA, local Surgeon: Pita Gramajo Estimated Blood Loss (ml): 350 Pathology: none sent Condition: stable Disposition: floor Operative Findings: Panniculectomy, 5.4 pounds
[2017-04-05] MEDS: MEPERIDINE 50 MG/ML SYRINGE IVP ONE ×2 (16:23→16:33)
[2017-04-05] MEDS: HYDROmorphone 4 MG/ML 1 ML SYRINGE IVP PRN ×2 (17:23→20:13)
[2017-04-05] MEDS: DEXTROSE 5%-0.9% NACL 1,000 ML IV SCH (20:07)
[2017-04-05] MEDS: ALPRAZolam 0.5 MG TAB PO SCH (20:07)
[2017-04-06] MEDS: ceFAZolin IN SWFI 2 GM/20 ML SYRINGE IVP SCH ×2 (00:13→07:43)
[2017-04-06] MEDS: HYDROmorphone 4 MG/ML 1 ML SYRINGE IVP PRN ×5 (00:16→15:47)
[2017-04-06] MEDS: DEXTROSE 5%-0.9% NACL 1,000 ML IV SCH ×2 (00:17→12:22)
[2017-04-06 07:16] LABS: Basophils % (A) 0 %; Eosinophils % (A) 0 %; HCT 35.6 % (34.0-46.0); HGB 11.1 gm/dL (11.4-16.0); Lymphocytes # (A) 1.8 k/uL (1.0-4.8); Lymphocytes % (A) 18 %; MCH 29.4 pg (25.0-35.0); MCHC 31.2 g/dL (31.0-37.0); MCV 94.3 fL (80.0-100.0); Mean Platelet Volume 7.8; Monocytes # (A) 0.7 k/uL (0-1.0); Monocytes % (A) 7 %; Neutrophils # (A) 7.2 k/uL (1.3-7.7); Neutrophils % (A) 73 %; Platelet Count 269 k/uL (150-450); RBC 3.77 m/uL (3.80-5.40); RDW 12.8 % (11.5-15.5); WBC 9.9 k/uL (3.8-10.6)
[2017-04-06] MEDS: ENOXAPARIN 30 MG/0.3 ML SYRINGE SQ SCH (10:17)
[2017-04-06] MEDS: LACTATED RINGERS 1,000 ML IV SCH (10:22)
--- NOTE | 2017-04-06 11:46 | P.PN ---
<Lidia Spence - Last Filed: 04/06/17 11:33> Subjective Progress Note Date: 04/06/17 41-year-old female seen and examined patient states having surgical discomfort has been up ambulating in the hallway once this morning . Reports a nausea sensation no active emesis. Abdominal binder in place JOHANNY drains serous drainage noted and drainage bulb afebrile heart rate in the 70s on room air sats are 97% Hemoglobin 11.1 Patient is postop April 05 panniculectomy, 5.4 pounds, ventral hernia repair for incarcerated umbilical hernia Objective - Vital Signs Vital signs: Vital Signs Temp 98.3 F 04/06/17 07:41 Pulse 73 04/06/17 07:41 Resp 16 04/06/17 07:41 BP 160/70 04/06/17 07:41 Pulse Ox 97 04/06/17 08:42 Intake & Output 04/05/17 04/06/17 04/06/17 18:59 06:59 18:59 Intake Total 0 216 Output Total 500 155 250 Balance 1550 61 -250 Weight 72.575 kg Intake: IV 2049 Intake, IV Titration 156 Amount Dextrose 5%-0.9% NaCl 1, 156 000 ml @ 125 mls/hr IV . Q8H [facility] Rx#:[id number] Oral 60 Output: Drainage 100 155 50 Left Abdomen 70 90 50 Right 30 65 Urine 50 200 Uretheral (Burton) 200 Estimated Blood Loss 350 Other: Voiding Method Indwelling Catheter Indwelling Catheter - Exam Physical exam 41-year-old female pleasant cooperative oriented 3 has been up ambulating in the hallway this morning Lungs adequate air movement bilaterally on room air sats 9596% no cough noted Heart S1-S2 audible regular heart rate in the 70s Abdomen abdominal binder in place soft nondistended indwelling Burton catheter in place JOHANNY drains in place surgical tenderness no nausea no vomiting Extremities Venodyne's on to the bilateral lower extremities - Labs CBC & Chem 7: 04/06/17 06:43 Labs: Abnormal Lab Results - Last 24 Hours (Table) 04/06/17 Range/Units 06:43 RBC 3.77 L (3.80-5.40) m/uL Hgb 11.1 L (11.4-16.0) gm/dL Assessment and Plan Assessment: Impression status post Erlin-en-Y gastric bypass on 01/03/2016. Chronic panniculitis Hypertension Anxiety disorder Morbid obesity due to excessive calories BMI 43 decreased to 26 Status post massive weight loss 105 pounds Plan Pain control Continue postop bariatric surgical care DVT and GI prophylaxis Increase activity Instructions on JOHANNY drain care The above impression and plan of care have been discussed and directed by signing physician. Lidia Spence nurse practitioner acting as scribe for signing physician. <Pita Gramajo - Last Filed: 04/06/17 19:15> Objective - Vital Signs Vital signs: Vital Signs Temp 96.8 F L 04/06/17 12:00 Pulse 76 04/06/17 12:00 Resp 16 04/06/17 12:00 BP 113/73 04/06/17 12:00 Pulse Ox 100 04/06/17 12:00 Intake & Output 04/06/17 04/06/17 04/07/17 06:59 18:59 06:59 Intake Total 216 Output Total 155 880 100 Balance 61 -880 -100 Intake: Intake, IV Titration 156 Amount Dextrose 5%-0.9% NaCl 1, 156 000 ml @ 125 mls/hr IV . Q8H [facility] Rx#:[id number] Oral 60 Output: Drainage 155 180 Left Abdomen 90 120 Right 65 60 Urine 700 100 Uretheral ([place]) 200 Other: Voiding Method Indwelling Catheter Toilet - Labs CBC & Chem 7: 04/06/17 12:21 Labs: Abnormal Lab Results - Last 24 Hours (Table) 04/06/17 04/06/17 Range/Units 06:43 12:21 RBC 3.77 L 3.61 L (3.80-5.40) m/uL Hgb 11.1 L 11.0 L (11.4-16.0) gm/dL
[2017-04-06 12:55] LABS: MCH 30.4 pg (25.0-35.0); MCHC 32.3 g/dL (31.0-37.0); MCV 94.1 fL (80.0-100.0); Mean Platelet Volume 7.7; Platelet Count 254 k/uL (150-450); RBC 3.61 m/uL (3.80-5.40); RDW 12.9 % (11.5-15.5); WBC 9.8 k/uL (3.8-10.6)
[2017-04-06] MEDS: HYDROcodone/APAP 7.5-325MG 1 EACH TAB PO PRN ×3 (13:24→23:29)
[2017-04-06] MEDS ORDERED: HYDROmorphone 0.5 MG/0.5 ML SYRINGE IVP PRN (19:00)
--- NOTE | 2017-04-06 19:34 | P.PN ---
Progress Note - Text Progress Note Date: 04/06/17 Patient seen and evaluated. Abdominal binder re-positioned. Dressing and wound care instructions reviewed in detail. Patient to follow-up in [facility] in 3 to 4 days. Discharge home tomorrow.
[2017-04-06] MEDS: ALPRAZolam 0.5 MG TAB PO SCH (20:42)
[2017-04-07] MEDS: HYDROcodone/APAP 7.5-325MG 1 EACH TAB PO PRN ×4 (06:28→22:53)
[2017-04-07] MEDS: ENOXAPARIN 30 MG/0.3 ML SYRINGE SQ SCH (08:10)
--- NOTE | 2017-04-07 09:49 | P.PN ---
Progress Note - Text The patient has complaints of fatigue and pain. She had a low-grade fever overnight. On exam her lesser stable. Her T-max is 99.3. Abdomen soft incision site is clean dry and intact. JOHANNY drains are functioning. Patient will continue to be observed. She'll hopefully be discharged home tomorrow.
[2017-04-07] MEDS ORDERED: HYDROcodone/APAP 7.5-325MG 1 EACH TAB PO STA (18:19)
[2017-04-07] MEDS ORDERED: HYDROcodone/APAP 7.5-325MG 1 EACH TAB PO PRN (18:19)
[2017-04-07] MEDS: ALPRAZolam 0.5 MG TAB PO SCH (20:29)
[2017-04-08] MEDS: HYDROcodone/APAP 7.5-325MG 1 EACH TAB PO PRN ×2 (04:10→11:02)
--- NOTE | 2017-04-08 08:41 | P.PN ---
Progress Note - Text Progress Note Date: 04/08/17 The patient feels much better today. She has been afebrile. Her pain is improved. On exam her lesser stable. Abdomen soft. Her incision sites clean dry intact. Patiently discharged home today. She'll follow-up with Dr. Zhang next week.
[2017-04-08] MEDS: ENOXAPARIN 30 MG/0.3 ML SYRINGE SQ SCH (09:47)
[2017-04-08 10:18] VITALS: BP 130/76; PULSE 81; RESP 20; TEMP 98.3
--- NOTE | 2017-04-25 23:22 | P.OP ---
Date of Procedure: 04/05/17 Description of Procedure: Date of Procedure: 04/05/17 SURGEON: JAMIL DELUCA MD TECHNICAL AID: 1. LANCE PONCE PREOPERATIVE DIAGNOSES: 1. Morbid obesity due to excess calories. 2. Body mass index 43.2 decreased to 26.3. 3. Dietary surveillance and counseling. 4. Depression, stable 5. Hypothyroidism. 6. Hypertensive heart disease, resolved. 7. Osteoarthritis of the lower back. 8. Osteoarthritis of the right knee, resolved. 9. History of bilateral lower extremity edema, resolved. 10. Diabetes type 2, non-insulin dependent without complication, resolved. 11. Obstructive sleep apnea, resolved. 12. Panniculitis. 13. Status post gastric bypass. 14. Status post massive weight loss, 105 pounds. POSTOPERATIVE DIAGNOSES: 1. Morbid obesity due to excess calories. 2. Body mass index 43.2 decreased to 26.3. 3. Dietary surveillance and counseling. 4. Depression, stable 5. Hypothyroidism. 6. Hypertensive heart disease, resolved. 7. Osteoarthritis of the lower back. 8. Osteoarthritis of the right knee, resolved. 9. History of bilateral lower extremity edema, resolved. 10. Diabetes type 2, non-insulin dependent without complication, resolved. 11. Obstructive sleep apnea, resolved. 12. Panniculitis. 13. Status post gastric bypass. 14. Status post massive weight loss, 105 pounds. 15. Initial ventral hernia with incarcerated umbilical hernia unrelated to bariatric procedure OPERATION: 1. Panniculectomy, 5.4 pounds. 2. Primary repair of ventral hernia 8 x 30 cm without mesh. ANESTHESIA: GETA, local ESTIMATED BLOOD LOSS: 350 mL SPECIMENS REMOVED: Pannus 5.4 pounds. COMPLICATIONS: None. CONDITION: Stable. Disposition: floor DRAINS: Two #19 Morgan drains below abdominal flap extending through the pubis. OPERATIVE FINDINGS: 1. Pannus weighing 5.4 pounds, excised. 2. Abdominal ventral hernia of 8 x 30 cm along the midline repaired primarily using fascial imbrication. INDICATIONS: The patient is a 41-year-old female status post Erlin-en-Y gastric bypass 1 year ago. She had developed moderate redundant skin with panniculitis. Her initial weight was 269 pounds for her 5 foot 6 frame. Her ideal body weight is 154 pounds. Today she comes in weighing 160 pounds. She has lost 109 pounds. Percent excess weight loss is over 95% after one year. Body mass index reduced from 43.2 down to 27.5. She presents for a panniculectomy. Despite medical therapy with prescription powders such as Nystatin over 1 year,she has developed severe medical refractory panniculitis. Benefits and risks of the procedure including bleeding, infection, cosmetic deformity, abdominal seromas, placement of drains, and risk of flap failure were described at length. Informed consent was obtained. DESCRIPTION: In the preanesthesia care unit the patient was marked with an indelible marker. She had also been given heparin subcutaneously. The patient was brought into the operating room and laid in supine position. After general induction, a Burton catheter was placed. The abdomen was then prepped and draped in standard sterile fashion using ChloraPrep. The skin was prepped as far laterally to the back, inferiorly to the upper thighs and superiorly to above the bilateral breasts. A timeout protocol was confirmed with the surgical team regarding patient's name , procedure to be performed, including preoperative medications. She had received Ancef 2 grams IV antibiotics. Once the time-out protocol was confirmed with the surgical team, the patient was re-marked with indelible marker whereby the midline of the xiphoid to the mons pubis was marked. The anterior/superior iliac spine along the bilateral hips was also marked. At 8 cm above the pubis commissure a transverse incision was made for the inferior portion of the flap. Using a #10 blade, the incision was taken from the midline laterally to above the anterior/superior iliac spine , initially on the left side of the patient and then on the right side of the patient. Electro-Bovie cautery was used to control for hemostasis. The dissection was taken down to the level of the fascia. Landmarks used were the xiphoid process as well as the bilateral costal margins for the superior margin. Care was taken to avoid any creation of dog ears during the dissection. Once hemostasis was checked, a large ventral hernia fascial defect of 8 x 30 cm was identified unrelated to her bariatric procedure. During this dissection, the umbilicus was truncated at its fascial insertion. The umbilicus fascial excision was oversewn using 0-Vicryl for incarcerated umbilical hernia. Starting from the xiphoid process, fascial imbrication was performed using #2 Ethibond. Multiple facial imbrications at least 4 layers were performed. The ventral hernia defect was completely repaired and closed. Hemostasis was once again checked with electro-Bovie cautery and all defects were addressed. Attention was now brought to closure of the flap. Using stainless steel skin blue, the midline was once again marked of the upper flap as well as the pubic commissure. The patient was placed in a flexed position of approximately 30 degrees at the hips. The pannus was extended inferiorly to the feet. The upper flap was created once the excess skin was excised. Again care was taken to avoid any dog ears along the lateral aspect of the incisions. Once excised, the pannus was weighed at 5.4 pounds. The upper and lower flaps were reapproximated at the midline and then laterally to the skin with skin blue. Once reapproximated, the skin was closed in layers using 0 Vicryl for the superficial fascial system followed by running 3- 0 Monocryl for the deep dermis in a running subcuticular fashion. Prior to skin closure, two round #19 Morgan drains were placed underneath the flap and brought out just inferior to the incision along the pubis. Drain stitch using 2-0 nylon was placed. Once the incision was closed, bulb suction was attached. Hemostasis was checked. At the end of the procedure, the needle, sponge and instrument count was verified correct. The skin was cleansed with hydrogen peroxide. Dermabond tape including adhesive was placed along the length of the incision. Optifoam long silver dressing was also placed over the incision. Small optifoam dressing was placed over the JOHANNY sites. The patient was then transferred to a hospital bed in a beach chair position. An abdominal binder was placed and marked. The patient was taken to the postanesthesia care unit in stable condition, awake and extubated. Total time for procedure from skin to skin was 122 minutes. The intraoperative findings were discussed with her family who was pleased with the level of care.
--- NOTE | 2017-04-25 23:27 | P.DS ---
Providers Date of admission: 04/05/17 11:06 Expected date of discharge: 04/08/17 Attending physician: Pita Gramajo Primary care physician: Stated None - Discharge Diagnosis(es) (1) Ventral hernia Status: Acute (2) History of Erlin-en-Y gastric bypass Status: Acute (3) Panniculitis Status: Acute Hospital Course: INDICATIONS: The patient is a 41-year-old female status post Erlin-en-Y gastric bypass 1 year ago. She had developed moderate redundant skin with panniculitis. Her initial weight was 269 pounds for her 5 foot 6 frame. Her ideal body weight is 154 pounds. Today she comes in weighing 160 pounds. She has lost 109 pounds. Percent excess weight loss is over 95% after one year. Body mass index reduced from 43.2 down to 25.8 . She presents for a panniculectomy. Despite medical therapy with prescription powders such as Nystatin over 1 year,she has developed severe medical refractory panniculitis. She underwent a panniculectomy. Postprocedure, she was hospitalized for control of expected pain. Prior to discharge, her pain was well controlled. Procedures: OPERATION: 1. Panniculectomy, 5.4 pounds. 2. Primary repair of ventral hernia 8 x 30 cm without mesh. Patient Condition at Discharge: Stable Plan - Discharge Summary Discharge Rx Participant: Yes New Discharge Prescriptions: New HYDROcodone/APAP 7.5-325MG [[place] 7.5-325] 1 each PO Q6H PRN #60 tab PRN Reason: MODERATE Pain Continue Albuterol Inhaler [Ventolin Hfa Inhaler] 1 puff INHALATION RT-Q6H PRN PRN Reason: Shortness Of Breath ALPRAZolam [Xanax] 1 mg PO HS Escitalopram [Lexapro] 20 mg PO DAILY Discontinued traMADol HCL [Ultram] 50 mg PO Q6H PRN PRN Reason: Pain No Action HYDROcodone/APAP 5-325MG [[place] 5-325] 1 tab PO Q6HR PRN #30 tab PRN Reason: Pain Discharge Medication List Albuterol Inhaler [Ventolin Hfa Inhaler] 1 puff INHALATION RT-Q6H PRN 10/27/15 [ History] ALPRAZolam [Xanax] 1 mg PO HS 12/28/15 [History] Escitalopram [Lexapro] 20 mg PO DAILY 03/15/17 [History] HYDROcodone/APAP 7.5-325MG [[place] 7.5-325] 1 each PO Q6H PRN #60 tab 04/06/17 [ Rx] HYDROcodone/APAP 5-325MG [[place] 5-325] 1 tab PO Q6HR PRN #30 tab 04/24/17 [Rx] Follow up Appointment(s)/Referral(s): [facility], [NON-STAFF] - Bariatric Center,. [NON-STAFF] - 04/09/17 10:30 am Patient Instructions/Handouts: [place]-Valladares Drain Care (GEN), Abdominal Binder (DC), Panniculectomy (DC) Activity/Diet/Wound Care/Special Instructions: Goal protein intake of 75 grams daily. No showering or bath tub soaks. May sponge bath. No lifting over 4 pounds in 4 weeks. Record JOHANNY outputs. Wear snug at all times. Discharge Disposition: HOME WITH HOME HEALTH SERVICES
== END 2017-04-08 12:55 | disposition home health service (06) | DRG 580 ==
LOC: 2ORWHC 11:06 → 3SUR 15:34
PROVIDERS: ADMIT Surgery Plastic and Reconstructive Surgery; ATTEND Surgery Plastic and Reconstructive Surgery
PROC: 0WBF0ZZ Excision of Abdominal Wall, Open Approach (ICD-10-PCS; principal; 2017-04-05 12:30)
DX: M79.3 Panniculitis, unspecified (principal); K42.0 Umbilical hernia with obstruction, without gangrene; E66.01 Morbid (severe) obesity due to excess calories; K43.9 Ventral hernia without obstruction or gangrene; I10 Essential (primary) hypertension; F41.9 Anxiety disorder, unspecified; Z68.26 Body mass index [BMI] 26.0-26.9, adult; R50.9 Fever, unspecified; R53.83 Other fatigue; F32.9 Major depressive disorder, single episode, unspecified; E03.9 Hypothyroidism, unspecified; M47.9 Spondylosis, unspecified; J45.909 Unspecified asthma, uncomplicated; Z83.3 Family history of diabetes mellitus; Z82.61 Family history of arthritis; Z71.3 Dietary counseling and surveillance; Z82.49 Family history of ischemic heart disease and other diseases of the circulatory system; Z98.84 Bariatric surgery status; Z85.820 Personal history of malignant melanoma of skin; Z79.899 Other long term (current) drug therapy; Z88.1 Allergy status to other antibiotic agents; Z88.0 Allergy status to penicillin; Z88.8 Allergy status to other drugs, medicaments and biological substances; Z90.89 Acquired absence of other organs; Z90.49 Acquired absence of other specified parts of digestive tract; Z98.51 Tubal ligation status
CPT/HCPCS: 81025; 85025; 85027; 94760

== ENCOUNTER → 2017-04-09 | Outpatient (CLI) | payer BC ==
[2017-04-10 15:18] VITALS: BP 144/88; PULSE 65; RESP 16; TEMP 98.1; BMI 25.4
--- NOTE | 2017-04-28 21:41 | P.PN ---
Subjective Progress Note Date: 04/09/17 DATE OF SERVICE: 04/09/2017 CHIEF COMPLAINT: Panniculitis HISTORY OF PRESENT ILLNESS: HISTORY OF PRESENT ILLNESS: Arianna Florian is a 41- year-old female who is status post Erlin-en-Y gastric bypass on 01/03/2016. She is status post panniculectomy 04/05/2017. She has 4 days postprocedure. No reports of nausea and vomiting. No reports of nausea and vomiting. Pain is fair. Sanguinous drainage from her JOHANNY. She complains of transient swelling on the left proximal thigh. Body mass index reduced from 43.2 to 25.6. [place] body weight of 154 pounds. Initial weight 269 pounds. Percent excess weight loss 96% . She lost 1 pound in in 3 weeks PHYSICAL EXAM: VITAL SIGNS: 5 feet 6.25 inches, 159 pounds. Vital Signs Temp 98.1 F 04/09/17 12:00 Pulse 65 04/09/17 12:00 Resp 16 04/09/17 12:00 BP 144/88 04/09/17 12:00 Pulse Ox GENERAL: Well-developed female in no acute distress. ABDOMEN: Soft, nondistended. Incisions well approximated. No signs of infection. JOHANNY sanguinous. Abdominal binder placed. Dressing discontinued. MUSCULOSKELETAL: No clubbing, cyanosis, or edema. No bilateral lower extremity swelling identified. HEENT: No scleral icterus. Extraocular movements grossly intact. Moist buccal mucosa. NECK: Supple without lymphadenopathy. CHEST: Non-labored respirations with equal bilateral excursions. CARDIOVASCULAR: Regular rate and rhythm. NEURO: No focal or lateralizing signs. Cranial nerves II through XII grossly within normal limits. PSYCH: Appropriate affect. Alert and oriented to person, place and time. SKIN: Good skin turgor. Well perfused. ASSESSMENT: 1. Morbid obesity due to excess calories. 2. Body mass index 43.2 decreased to 25.5. 3. Status post gastric bypass. 4. Status post panniculectomy PLAN: 1. Continue JPs. 2. Abdominal binder on at all times. 3. Follow-up in one week. 4. Additional dressing changes at home for home healthcare reviewed.
== END | disposition home or self-care (01) ==
LOC: BARWHC3 10:31
PROVIDERS: ATTEND Surgery Plastic and Reconstructive Surgery
DX: Z09 Encounter for follow-up examination after completed treatment for conditions other than malignant neoplasm (principal); K91.872 Postprocedural seroma of a digestive system organ or structure following a digestive system procedure; R22.42 Localized swelling, mass and lump, left lower limb; E66.01 Morbid (severe) obesity due to excess calories; Z68.41 Body mass index [BMI] 40.0-44.9, adult; Z98.84 Bariatric surgery status; Z98.890 Other specified postprocedural states
CPT/HCPCS: 99211

== ENCOUNTER → 2017-04-18 | Outpatient (CLI) | payer BC ==
[2017-04-18 14:00] VITALS: BP 147/89; PULSE 77; RESP 16; TEMP 98.5; BMI 24.8
--- NOTE | 2017-04-28 21:47 | P.PN ---
Subjective Progress Note Date: 04/18/17 DATE OF SERVICE: 04/18/2017 CHIEF COMPLAINT: Panniculitis HISTORY OF PRESENT ILLNESS: Arianna Florian is a 41-year-old female who is status post Erlin-en-Y gastric bypass on 01/03/2016. She is status post panniculectomy 04/05/2017. She is 2 weeks postop. Pain is well-controlled. She reports decreased output from her JPs. No reports of fevers or chills. No abdominal pain. Body mass index reduced from 43.2 to 24.8. [place] body weight of 154 pounds. Initial weight 269 pounds. Percent excess weight loss 99%. She lost 4 pounds in 2 weeks. PHYSICAL EXAM: VITAL SIGNS: 5 feet 6.25 inches, 155 pounds. Vital Signs Temp 98.5 F 04/18/17 13:54 Pulse 77 04/18/17 13:54 Resp 16 04/18/17 13:54 BP 147/89 04/18/17 13:54 Pulse Ox GENERAL: Well-developed female in no acute distress. ABDOMEN: JPs discontinued. No palpable abdominal seroma. No signs of infection. Incisions granulated. MUSCULOSKELETAL: No clubbing, cyanosis, or edema. No bilateral lower extremity swelling identified. HEENT: No scleral icterus. Extraocular movements grossly intact. Moist buccal mucosa. NECK: Supple without lymphadenopathy. CHEST: Non-labored respirations with equal bilateral excursions. CARDIOVASCULAR: Regular rate and rhythm. NEURO: No focal or lateralizing signs. Cranial nerves II through XII grossly within normal limits. PSYCH: Appropriate affect. Alert and oriented to person, place and time. SKIN: Good skin turgor. Well perfused. Severe curvature of the nails. ASSESSMENT: 1. Morbid obesity due to excess calories. 2. Body mass index 43.2 decreased to 24.8 3. Status post gastric bypass. 4. Status post panniculectomy 5. Severe iron deficiency anemia, symptomatic. PLAN: 1. She has severe and symptomatic iron deficiency anemia and recommend iron infusions. 2. She was asked to use a tape measure along the abdomen to track abdominal wall seromas. 3. New abdominal binder advised. 4. Follow-up in 1 week. Objective - Vital Signs Vital signs: Vital Signs Temp 98.5 F 04/18/17 13:54 Pulse 77 04/18/17 13:54 Resp 16 04/18/17 13:54 BP 147/89 04/18/17 13:54 Pulse Ox Intake & Output 04/17/17 04/18/17 04/18/17 18:59 06:59 18:59 Weight 70.307 kg
== END ==
LOC: BARWHC3 13:01
PROVIDERS: ATTEND Surgery Plastic and Reconstructive Surgery
DX: E66.01 Morbid (severe) obesity due to excess calories (principal); D50.9 Iron deficiency anemia, unspecified; Z98.84 Bariatric surgery status; Z68.24 Body mass index [BMI] 24.0-24.9, adult; Z98.890 Other specified postprocedural states
CPT/HCPCS: 99211

== ENCOUNTER → 2017-05-17 | Outpatient (CLI) | payer BC ==
[~2017-05-17] MED LIST changes: -ACETAMINOPHEN IV (For NPO) 1,000 MG in EMPTY BAG 1 BAG IVPB ONE; -ACETAMINOPHEN TAB 500 MG TAB PO ONE; -DEXAMETHASONE SOD PHOSPHATE 10 MG/ML 1 ML VIAL IV ONE; -HEPARIN SODIUM,PORCINE 5,000 UNIT/ML 1 ML VIAL SQ ONE; -HYDROmorphone 2 MG/ML 1 ML SYRINGE IVP PRN; -MIDAZOLAM 2 MG/2 ML VIAL IV PRN; +MIDAZOLAM 2 MG/2 ML VIAL ONE; -ONDANSETRON 4 MG/2 ML VIAL IVP ONE; -ceFAZolin IN SWFI 2 GM/20 ML SYRINGE IVP ONE
[2017-05-17 14:51] VITALS: BP 144/64; PULSE 82; TEMP 98.3; BMI 24.7
--- NOTE | 2017-05-17 15:20 | P.PN ---
Progress Note - Text Progress Note Date: 05/17/17 To whom it may concern: Arianna Florian is under my general surgical care. She still has not completely recovered from her procedure. She will need additional 3 weeks prior to potential return to work. She will be closely monitored during this time frame. Regards, Pita Gramajo MD
--- NOTE | 2017-06-22 14:44 | P.PN ---
Subjective Progress Note Date: 05/17/17 DATE OF SERVICE: 05/17/2017 CHIEF COMPLAINT: Panniculitis HISTORY OF PRESENT ILLNESS: Arianna Florian is a 41-year-old female who is status post Erlin-en-Y gastric bypass on 01/03/2016. She is status post panniculectomy 04/05/2017. She is 1 month postop. She still reports appropriate postop pain. Separately she complains of swelling of her abdominal incision. Body mass index reduced from 43.2 to 24.8. [place] body weight of 154 pounds. Initial weight 269 pounds. Percent excess weight loss 99%. She has maintained weight loss in 1 month. PHYSICAL EXAM: VITAL SIGNS: 5 feet 6.25 inches, 155 pounds. BMI 24.9. Vital Signs Temp 98.3 F 05/17/17 14:33 Pulse 82 05/17/17 14:33 Resp BP 144/64 05/17/17 14:33 Pulse Ox GENERAL: Well-developed female in no acute distress. ABDOMEN: Incisions granulated. Mild edema of the lower pelvis. No infection or cellulitis. MUSCULOSKELETAL: No clubbing, cyanosis, or edema. No bilateral lower extremity swelling identified. HEENT: No scleral icterus. Extraocular movements grossly intact. Moist buccal mucosa. NECK: Supple without lymphadenopathy. CHEST: Non-labored respirations with equal bilateral excursions. CARDIOVASCULAR: Regular rate and rhythm. NEURO: No focal or lateralizing signs. Cranial nerves II through XII grossly within normal limits. PSYCH: Appropriate affect. Alert and oriented to person, place and time. SKIN: Good skin turgor. Well perfused. Severe curvature of the nails. ASSESSMENT: 1. Morbid obesity due to excess calories. 2. Body mass index 43.2 decreased to 24.8 3. Status post gastric bypass. 4. Status post panniculectomy 5. Severe iron deficiency anemia, symptomatic. 6. Edema lower pelvis possible small 7. Previous history of kidney stones PLAN: 1. Additional pain medications written. 2. Recommend CT of the abdomen pelvis for history of kidney stones and lower abdominal pain. 3. Recommend extension time off from work. 4. Wear abdominal binder at all times. ADDENDUM: CT of the abdomen and pelvis reviewed demonstrating no evidence of seroma Objective - Vital Signs Vital signs: Vital Signs Temp 98.3 F 05/17/17 14:33 Pulse 82 05/17/17 14:33 Resp BP 144/64 05/17/17 14:33 Pulse Ox Intake & Output 05/16/17 05/17/17 05/17/17 18:59 06:59 18:59 Weight 70.624 kg
== END | disposition home or self-care (01) ==
LOC: BARWHC3 14:08
PROVIDERS: ATTEND Surgery Plastic and Reconstructive Surgery
DX: Z48.815 Encounter for surgical aftercare following surgery on the digestive system (principal); E66.01 Morbid (severe) obesity due to excess calories; D50.9 Iron deficiency anemia, unspecified; R60.0 Localized edema; Z87.448 Personal history of other diseases of urinary system; Z98.84 Bariatric surgery status; Z68.24 Body mass index [BMI] 24.0-24.9, adult; Z98.890 Other specified postprocedural states
CPT/HCPCS: 99211

== ENCOUNTER → 2017-05-21 | Outpatient (CLI) | payer BC ==
--- NOTE | 2017-05-21 21:08 | CT ---
EXAMINATION TYPE: CT abdomen pelvis wo con DATE OF EXAM: 05/21/2017 COMPARISON: 03/20/2016 HISTORY: Generalized abdominal and pelvic pain and swelling x [address] DLP: 323.2 mGycm Automated exposure control for dose reduction was used. TECHNIQUE: Helical acquisition of images was performed from the lung bases through the pelvis. FINDINGS: Lung bases are clear. There is no pleural effusion. Heart size is normal. Liver spleen pancreas appear normal. There are clips from cholecystectomy. Bile ducts are not dilated . There is some irregular thickening of the anterior abdominal wall. There is no adrenal mass. Kidneys have normal size and contour. There is no hydronephrosis. There is no retroperitoneal adenopathy. There is no ascites. There are surgical clips in the left mid abdomen. There is some retained fecal material down to the rectum. Rectum measures 7 cm. Bladder distends smo othly. There is no pelvic mass. I see no bony destructive process. Uterus is anteverted. There is vibha rowing at L5-S1 disc space. There is no sign of free air. There is no ascites. IMPRESSION: THERE IS THICKENING OF THE ANTERIOR ABDOMINAL WALL THAT IS NEW COMPARED TO OLD EXAM AND CONSISTENT WI TH SURGERY. ABDOMINAL WALL HEMATOMA CANNOT BE ENTIRELY EXCLUDED. MILD CONSTIPATION. INTESTINAL SURGERY. NO EVIDENCE OF A MECHANICAL BOWEL OBSTRUCTION. I DO NOT SEE A CAUSE FOR HEMATURIA. KIDNEYS SHOW NO EVIDENCE OF RENAL STONE OR OBSTRUCTION.
== END | disposition home or self-care (01) ==
LOC: RADCTMAIN 18:42
PROVIDERS: ATTEND Surgery Plastic and Reconstructive Surgery
DX: K59.00 Constipation, unspecified (principal); K43.9 Ventral hernia without obstruction or gangrene; Z98.890 Other specified postprocedural states
CPT/HCPCS: 74176

== ENCOUNTER → 2018-05-01 | Outpatient (CLI) | payer BC ==
--- NOTE | 2018-05-01 14:24 | P.PN ---
Subjective Progress Note Date: 05/01/18 DATE OF SERVICE: 05/01/2018 CHIEF COMPLAINT: Morbid obesity HISTORY OF PRESENT ILLNESS: Arianna Florian is a 42-year-old female who is status post Erlin-en-Y gastric bypass on 01/03/2016. She is status post panniculectomy 04/05/2017. She had back surgery for Mar 15 for pinched nerve and nerve deficits with left leg numb pain and tingling. She feels "acidic." No reports of active abdominal pain. Her body mass index is reduced from 43.2 to 25.6. She has lost 109 pounds. Schaller body weight of 154 pounds. Initial weight 269 pounds. Percent excess weight loss is 95%. PHYSICAL EXAM: VITAL SIGNS: 5 feet 6.25 inches, 160 pounds. BMI 25.6 GENERAL: Well-developed female in no acute distress. ABDOMEN: Soft, nontender, nondistended. MUSCULOSKELETAL: No clubbing, cyanosis, or edema. No bilateral lower extremity swelling identified. HEENT: No scleral icterus. Extraocular movements grossly intact. Moist buccal mucosa. NECK: Supple without lymphadenopathy. CHEST: Non-labored respirations with equal bilateral excursions. CARDIOVASCULAR: Regular rate and rhythm. NEURO: No focal or lateralizing signs. Cranial nerves II through XII grossly within normal limits. PSYCH: Appropriate affect. Alert and oriented to person, place and time. SKIN: Good skin turgor. Well perfused. Severe curvature of the nails. ASSESSMENT: 1. Morbid obesity due to excess calories. 2. Body mass index 43.2 decreased to 25.6 3. Status post gastric bypass. 4. Status post panniculectomy 5. Iron deficiency anemia, symptomatic. 6. Dietary surveillance and counseling 7. Vitamin D deficiency PLAN: 1. Recommend bariatric labs 2. Dietary surveillance described with 70 grams protein daily Laboratory Last Values WBC 9.3 k/uL (3.8-10.6) 05/01/18 14:52 RBC 4.72 m/uL (3.80-5.40) 05/01/18 14:52 Hgb 13.9 gm/dL (11.4-16.0) 05/01/18 14:52 Hct 43.0 % (34.0-46.0) 05/01/18 14:52 MCV 91.2 fL (80.0-100.0) 05/01/18 14:52 MCH 29.5 pg (25.0-35.0) 05/01/18 14:52 MCHC 32.4 g/dL (31.0-37.0) 05/01/18 14:52 RDW 12.6 % (11.5-15.5) 05/01/18 14:52 Plt Count 370 k/uL (150-450) 05/01/18 14:52 PT 9.7 sec (9.0-12.0) 05/01/18 14:52 INR 0.9 (<1.2) 05/01/18 14:52 APTT 24.9 sec (22.0-30.0) 05/01/18 14:52 Sodium 138 mmol/L (135-145) 05/01/18 14:52 Potassium 4.4 mmol/L (3.5-5.5) 05/01/18 14:52 Chloride 103 mmol/L (96-109) 05/01/18 14:52 Carbon Dioxide 27.2 mmol/L (21.6-31.8) 05/01/18 14:52 Anion Gap 7.80 mmol/L (4.00-12.00) 05/01/18 14:52 BUN 12.0 mg/dL (9.0-27.0) 05/01/18 14:52 Creatinine 0.7 mg/dL (0.6-1.5) 05/01/18 14:52 Est GFR (CKD-EPI)AfAm 124.7 (60.0-200.0) 05/01/18 14:52 Est GFR (CKD-EPI)NonAf 107.6 (60.0-200.0) 05/01/18 14:52 BUN/Creatinine Ratio 17.14 Ratio (12.00-20.00) 05/01/18 14:52 Glucose 83 mg/dL (70-110) 05/01/18 14:[address] Glu mg/dL 103 05/01/18 14:52 Hemoglobin A1c 5.2 % (4.0-6.0) 05/01/18 14:52 Calcium 9.4 mg/dL (8.7-10.3) 05/01/18 14:52 Phosphorus 3.5 mg/dL (2.4-5.1) 05/01/18 14:52 Magnesium 2.0 mg/dL (1.5-2.4) 05/01/18 14:52 Iron 63 ug/dL (50-170) 05/01/18 14:52 TIBC 272 ug/dL (228-460) 05/01/18 14:52 Iron Saturation 23.16 (12.00-45.00) 05/01/18 14:52 Ferritin 114.0 ng/mL (10.0-291.0) 05/01/18 14:52 Total Bilirubin 0.3 mg/dL (0.3-1.2) 05/01/18 14:52 AST 19 U/L (13-35) 05/01/18 14:52 ALT 15 U/L (8-44) 05/01/18 14:52 Alkaline Phosphatase 89 U/L (41-126) 05/01/18 14:52 Total Protein 7.0 g/dL (6.2-8.2) 05/01/18 14:52 Albumin 4.40 g/dL (3.80-4.90) 05/01/18 14:52 Globulin 2.6 g/dL (1.6-3.3) 05/01/18 14:52 Albumin/Globulin Ratio 1.69 g/dL (1.60-3.17) 05/01/18 14:52 Prealbumin 25.0 mg/dL (18.0-42.0) 05/01/18 14:52 Triglycerides 77.0 mg/dL (0.0-149.0) 05/01/18 14:52 Cholesterol 175 mg/dL (0-200) 05/01/18 14:52 LDL Cholesterol, Calc 75.6 mg/dL (0.0-131.0) 05/01/18 14:52 VLDL Cholesterol, Calc 15.40 mg/dL (5.00-40.00) 05/01/18 14:52 HDL Cholesterol 84.0 mg/dL (40.0-60.0) H 05/01/18 14:52 Cholesterol/HDL Ratio 2.08 05/01/18 14:52 Vitamin A 59 ug/dL (38-106) 05/01/18 14:52 Vitamin B1 79 ug/L (38-122) 05/01/18 14:52 Vitamin B12 307.0 pg/mL (200.0-944.0) 05/01/18 14:52 Vitamin D 25-Hydroxy 19.2 ng/mL (30.0-100.0) L 05/01/18 14:52 Folate >24.0 ng/mL 05/01/18 14:52 TSH 3.870 uIU/mL (0.350-5.500) 05/01/18 14:52 PTH Intact 52.6 pg/mL (14.0-72.0) 05/01/18 14:52 Copper 1598 ug/L (810-1990) 05/01/18 14:52 Selenium 139 mcg/L (63-160) 05/01/18 14:52 Zinc 99 ug/dL (60-130) 05/01/18 14:52 Vitamin D is low Objective - Labs CBC & Chem 7: 05/01/18 14:52 05/01/18 14:52
[2018-05-01 14:51] VITALS: BP 149/107; PULSE 76; RESP 16; TEMP 97.6; BMI 25.6
[2018-05-01 15:14] LABS: HGB 13.9 gm/dL (11.4-16.0); MCH 29.5 pg (25.0-35.0); MCHC 32.4 g/dL (31.0-37.0); MCV 91.2 fL (80.0-100.0); Mean Platelet Volume 6.7; Platelet Count 370 k/uL (150-450); RBC 4.72 m/uL (3.80-5.40); RDW 12.6 % (11.5-15.5); WBC 9.3 k/uL (3.8-10.6)
[2018-05-01 15:26] LABS: INR 0.9 (<1.2); Partial Thromboplastin Time 24.9 sec (22.0-30.0); Prothrombin Time 9.7 sec (9.0-12.0)
[2018-05-01 19:24] LABS: Albumin 4.4 g/dL (3.80-4.90); Albumin/Globulin Ratio 1.69 (1.60-3.17); Anion Gap 7.8 mmol/L (4.00-12.00); Calcium 9.4 mg/dL (8.7-10.3); Carbon Dioxide 27.2 mmol/L (21.6-31.8); Globulin 2.6 g/dL (1.6-3.3); LDL Cholesterol,Calculated 75.6 mg/dL (0.0-131.0); Phosphorus 3.5 mg/dL (2.4-5.1); Potassium 4.4 mmol/L (3.5-5.5); Total Bilirubin 0.3 mg/dL (0.3-1.2); VLDL Calculation 15.4 mg/dL (5.00-40.00)
[2018-05-01 19:26] LABS: Iron Saturation 23.16 (12.00-45.00)
[2018-05-01 19:33] LABS: Parathyroid Hormone Intact 52.6 pg/mL (14.0-72.0)
[2018-05-01 19:36] LABS: Vitamin D 25 Hydroxy 19.2 ng/mL (30.0-100.0)
[2018-05-01 19:48] LABS: Folate, Serum >24.0 ng/mL
[2018-05-01 21:36] LABS: Hemoglobin A1C 5.2 % (4.0-6.0)
[2018-05-02 15:43] LABS: Zinc, Serum 99 ug/dL (60-130)
[2018-05-03 09:38] LABS: Vitamin A 59 ug/dL (38-106)
[2018-05-03 21:26] LABS: Selenium 139 mcg/L (63-160)
[2018-05-06 08:44] LABS: Vit B1(Thiamine) 79 ug/L (38-122)
== END ==
LOC: BARWHC3 13:13
PROVIDERS: ATTEND Surgery Plastic and Reconstructive Surgery
DX: E66.01 Morbid (severe) obesity due to excess calories (principal); D50.9 Iron deficiency anemia, unspecified; E55.9 Vitamin D deficiency, unspecified; E21.1 Secondary hyperparathyroidism, not elsewhere classified; E89.1 Postprocedural hypoinsulinemia; K90.9 Intestinal malabsorption, unspecified; K74.1 Hepatic sclerosis; N19 Unspecified kidney failure; K50.90 Crohn's disease, unspecified, without complications; Z71.3 Dietary counseling and surveillance; Z98.84 Bariatric surgery status; Z98.890 Other specified postprocedural states; Z68.25 Body mass index [BMI] 25.0-25.9, adult; Z87.19 Personal history of other diseases of the digestive system
CPT/HCPCS: 36415; 80053; 80061; 82306; 82525; 82607; 82728; 82746; 83036; 83540; 83550; 83735; 83970; 84100; 84134; 84255; 84425; 84443; 84590; 84630; 85027; 85610; 85730; 97803; 99211

== ENCOUNTER → 2019-04-16 | Outpatient (CLI) | payer BC ==
[2019-04-16 14:05] VITALS: BP 146/90; PULSE 57; TEMP 97.7; BMI 29.2
--- NOTE | 2019-04-16 14:05 | P.PN ---
Progress Note - Text Progress Note Date: 04/16/19 DATE OF SERVICE: 04/16/2019 CHIEF COMPLAINT: Status post gastric bypass HISTORY OF PRESENT ILLNESS: Arianna Florian is a 43-year-old female who is status post Erlin-en-Y gastric bypass on 01/03/2016. She is 3 years out. She reports anxiety. She has gained 25 pounds. She was diagnosed with ADHD. She is unhappy with her weight loss. She was placed on medications for depression after being placed on anti-depressants. She presents today for new weight re-gain. At her height of 5 foot 6.25 inches, her ideal body weight is 154 pounds. Her highest weight was 269 pounbds, BMI 43.2. She comes in 183 pounds from 160 pounds, 1 year. She has gained 23 pounds in 1 year. Her body mass index is redu renetta from 43.2 to 29.3. Lifetime weight loss of 86 pounds. Lifetime percent excess weight loss is 75%. PHYSICAL EXAM: VITAL SIGNS: 5 feet 6.25 inches, 183 pounds. BMI 29.3 Vital Signs Temp 97.7 F 04/16/19 13:54 Pulse 57 L 04/16/19 13:54 Resp BP 146/90 04/16/19 13:54 Pulse Ox GENERAL: Well-developed female in no acute distress. ABDOMEN: Soft, nontender, nondistended. No hernia. MUSCULOSKELETAL: No clubbing, cyanosis, or edema. No bilateral lower extremity swelling identified. HEENT: No scleral icterus. Extraocular movements grossly intact. Moist buccal mucosa. NECK: Supple without lymphadenopathy. CHEST: Non-labored respirations with equal bilateral excursions. CARDIOVASCULAR: Regular rate and rhythm. NEURO: No focal or lateralizing signs. Cranial nerves II through XII grossly within normal limits. PSYCH: Appropriate affect. Alert and oriented to person, place and time. SKIN: Good skin turgor. Well perfused. Severe curvature of the nails. ASSESSMENT: 1. Morbid obesity due to excess calories. 2. Body mass index 43.2 decreased to 29.3 3. Status post gastric bypass. 4. Status post panniculectomy 5. Iron deficiency anemia, symptomatic. 6. Dietary surveillance and counseling 7. Vitamin D deficiency PLAN: 1. Recommend bariatric labs 2. Recommend start 2 week protein diet 3. For vitamin D deficiency, recommend Vitamin D 10,000 units daily 4. Also, recommend magnesium supplement, magnesium 400 mg daily. Alive MVI 5. She has a lesion along the forehead, recommend excision of forehead lipoma Laboratory Last Values WBC 7.3 k/uL (3.8-10.6) 04/16/19 14:34 RBC 4.47 m/uL (3.80-5.40) 04/16/19 14:34 Hgb 13.4 gm/dL (11.4-16.0) 04/16/19 14:34 Hct 40.1 % (34.0-46.0) 04/16/19 14:34 MCV 89.7 fL (80.0-100.0) 04/16/19 14:34 MCH 29.9 pg (25.0-35.0) 04/16/19 14:34 MCHC 33.4 g/dL (31.0-37.0) 04/16/19 14:34 RDW 13.3 % (11.5-15.5) 04/16/19 14:34 Plt Count 387 k/uL (150-450) 04/16/19 14:34 PT 9.4 sec (9.0-12.0) 04/16/19 14:34 INR 0.9 (<1.2) 04/16/19 14:34 APTT 23.4 sec (22.0-30.0) 04/16/19 14:34 Sodium 145 mmol/L (135-145) 04/16/19 14:34 Potassium 4.2 mmol/L (3.5-5.5) 04/16/19 14:34 Chloride 107 mmol/L (96-109) 04/16/19 14:34 Carbon Dioxide 26.9 mmol/L (21.6-31.8) 04/16/19 14:34 Anion Gap 11.10 mmol/L (4.00-12.00) 04/16/19 14:34 BUN 10.0 mg/dL (9.0-27.0) 04/16/19 14:34 Creatinine 0.8 mg/dL (0.6-1.5) 04/16/19 14:34 Est GFR (CKD-EPI)AfAm 105.4 (60.0-200.0) 04/16/19 14:34 Est GFR (CKD-EPI)NonAf 90.9 (60.0-200.0) 04/16/19 14:34 BUN/Creatinine Ratio 12.50 Ratio (12.00-20.00) 04/16/19 14:34 Glucose 99 mg/dL (70-110) 04/16/19 14:[address] Glu mg/dL 100 04/16/19 14:34 Hemoglobin A1c 5.1 % (4.0-6.0) 04/16/19 14:34 Calcium 9.1 mg/dL (8.7-10.3) 04/16/19 14:34 Phosphorus 3.9 mg/dL (2.4-5.1) 04/16/19 14:34 Magnesium 2.3 mg/dL (1.5-2.4) 04/16/19 14:34 Iron 32 ug/dL (50-170) L 04/16/19 14:34 TIBC 281 ug/dL (228-460) 04/16/19 14:34 % Saturation 11.39 (12.00-45.00) L 04/16/19 14:34 Ferritin 35.7 ng/mL (10.0-291.0) 04/16/19 14:34 Total Bilirubin 0.2 mg/dL (0.3-1.2) L 04/16/19 14:34 AST 16 U/L (13-35) 04/16/19 14:34 ALT 13 U/L (8-44) 04/16/19 14:34 Alkaline Phosphatase 83 U/L (41-126) 04/16/19 14:34 Total Protein 6.5 g/dL (6.2-8.2) 04/16/19 14:34 Albumin 4.40 g/dL (3.80-4.90) 04/16/19 14:34 Globulin 2.1 g/dL (1.6-3.3) 04/16/19 14:34 Albumin/Globulin Ratio 2.10 g/dL (1.60-3.17) 04/16/19 14:34 Prealbumin 21.0 mg/dL (18.0-42.0) 04/16/19 14:34 Triglycerides 74.0 mg/dL (0.0-149.0) 04/16/19 14:34 Cholesterol 169 mg/dL (0-200) 04/16/19 14:34 LDL Cholesterol, Calc 57.2 mg/dL (0.0-131.0) 04/16/19 14:34 VLDL Cholesterol, Calc 14.80 mg/dL (5.00-40.00) 04/16/19 14:34 HDL Cholesterol 97.0 mg/dL (40.0-60.0) H 04/16/19 14:34 Cholesterol/HDL Ratio 1.74 04/16/19 14:34 Vitamin A 43 ug/dL (38-106) 04/16/19 14:34 Vitamin B1 62 ug/L (38-122) 04/16/19 14:34 Vitamin B12 197.0 pg/mL (200.0-944.0) L 04/16/19 14:34 Vitamin D 25-Hydroxy 18.3 ng/mL (30.0-100.0) L 04/16/19 14:34 Folate 14.7 ng/mL 04/16/19 14:34 TSH 2.550 uIU/mL (0.350-5.500) 04/16/19 14:34 PTH Intact 74.3 pg/mL (14.0-72.0) H 04/16/19 14:34 Copper 1606 ug/L (810-1990) 04/16/19 14:34 Selenium 104 mcg/L (63-160) 04/16/19 14:34 Zinc 92 ug/dL (60-130) 04/16/19 14:34 Iron is low Vitamin B12 is low Vitamin D is low PTH is elevated
[2019-04-16 15:02] LABS: HCT 40.1 % (34.0-46.0); HGB 13.4 gm/dL (11.4-16.0); MCH 29.9 pg (25.0-35.0); MCHC 33.4 g/dL (31.0-37.0); MCV 89.7 fL (80.0-100.0); Mean Platelet Volume 7.7; Platelet Count 387 k/uL (150-450); RBC 4.47 m/uL (3.80-5.40); RDW 13.3 % (11.5-15.5); WBC 7.3 k/uL (3.8-10.6)
[2019-04-16 15:20] LABS: INR 0.9 (<1.2); Partial Thromboplastin Time 23.4 sec (22.0-30.0); Prothrombin Time 9.4 sec (9.0-12.0)
[2019-04-16 19:16] LABS: % Iron Saturation 11.39 (12.00-45.00); African American GFR (CKD) 105.4 (60.0-200.0); Albumin 4.4 g/dL (3.80-4.90); Albumin/Globulin Ratio 2.1 (1.60-3.17); Anion Gap 11.1 mmol/L (4.00-12.00); BUN/Creat Ratio 12.5 Ratio (12.00-20.00); Calcium 9.1 mg/dL (8.7-10.3); Carbon Dioxide 26.9 mmol/L (21.6-31.8); Chol/HDL Ratio 1.74; Globulin 2.1 g/dL (1.6-3.3); LDL Cholesterol,Calculated 57.2 mg/dL (0.0-131.0); Magnesium 2.3 mg/dL (1.5-2.4); Non-African American GFR(CKD) 90.9 (60.0-200.0); Phosphorus 3.9 mg/dL (2.4-5.1); Potassium 4.2 mmol/L (3.5-5.5); Total Bilirubin 0.2 mg/dL (0.3-1.2); Total Protein 6.5 g/dL (6.2-8.2); VLDL Calculation 14.8 mg/dL (5.00-40.00)
[2019-04-16 19:27] LABS: Ferritin 35.7 ng/mL (10.0-291.0)
[2019-04-16 20:50] LABS: Folate, Serum 14.7 ng/mL
[2019-04-17 01:16] LABS: Hemoglobin A1C 5.1 % (4.0-6.0)
[2019-04-17 13:01] LABS: Zinc, Serum 92 ug/dL (60-130)
[2019-04-18 07:22] LABS: Vitamin A 43 ug/dL (38-106)
[2019-04-19 01:06] LABS: Selenium 104 mcg/L (63-160)
[2019-04-19 09:17] LABS: Vit B1(Thiamine) 62 ug/L (38-122)
== END | disposition home or self-care (01) ==
LOC: BARWHC3 13:16
PROVIDERS: ATTEND Surgery Plastic and Reconstructive Surgery
DX: Z48.815 Encounter for surgical aftercare following surgery on the digestive system (principal); E66.01 Morbid (severe) obesity due to excess calories; Z98.890 Other specified postprocedural states; D50.8 Other iron deficiency anemias; E55.9 Vitamin D deficiency, unspecified; D17.0 Benign lipomatous neoplasm of skin and subcutaneous tissue of head, face and neck; Z68.29 Body mass index [BMI] 29.0-29.9, adult; Z71.3 Dietary counseling and surveillance; Z98.84 Bariatric surgery status
CPT/HCPCS: 80053; 80061; 82306; 82525; 82607; 82728; 82746; 83036; 83540; 83550; 83735; 83970; 84100; 84134; 84255; 84425; 84443; 84590; 84630; 85027; 85610; 85730; 99211

== ENCOUNTER → 2019-09-03 | Outpatient (CLI) | payer BC ==
--- NOTE | 2019-09-03 16:41 | P.PN ---
Subjective Progress Note Date: 09/03/19 She reports weight gain in 4 pounds. Will re-check full labs. She reports leg cramps. She reports abdominal cramps. Recommend diagnostic laparoscopy. Has forehead right side. Objective - Vital Signs Vital signs: Vital Signs Temp 98.2 F 09/03/19 16:08 Pulse 82 09/03/19 16:08 Resp 16 09/03/19 16:08 BP 148/91 09/03/19 16:08 Pulse Ox Intake & Output 09/02/19 09/03/19 09/03/19 18:59 06:59 18:59 Weight 84.822 kg
[2019-09-05 09:35] VITALS: BP 148/91; PULSE 82; RESP 16; TEMP 98.2; BMI 29.9
== END | disposition home or self-care (01) ==
LOC: BARWHC3 15:25
PROVIDERS: ATTEND Surgery Plastic and Reconstructive Surgery
DX: E66.01 Morbid (severe) obesity due to excess calories (principal); R25.2 Cramp and spasm; R10.9 Unspecified abdominal pain; Z68.30 Body mass index [BMI] 30.0-30.9, adult
CPT/HCPCS: 99211

== ENCOUNTER → 2019-09-19 | Outpatient (CLI) | payer BC ==
[2019-09-19 13:21] LABS: HCT 39.9 % (34.0-46.0); MCHC 32.4 g/dL (31.0-37.0); MCV 92.6 fL (80.0-100.0); Mean Platelet Volume 7.6; Platelet Count 308 k/uL (150-450); RBC 4.31 m/uL (3.80-5.40); RDW 13.2 % (11.5-15.5); WBC 7.1 k/uL (3.8-10.6)
[2019-09-19 19:29] LABS: % Iron Saturation 25.42 (12.00-45.00); Chol/HDL Ratio 1.78; LDL Cholesterol,Calculated 58.8 mg/dL (0.0-131.0); Phosphorus 3.8 mg/dL (2.4-5.1); VLDL Calculation 14.2 mg/dL (5.00-40.00)
[2019-09-19 19:30] LABS: African American GFR (CKD) 105.4 (60.0-200.0); Albumin 4.3 g/dL (3.80-4.90); Albumin/Globulin Ratio 1.87 (1.60-3.17); Anion Gap 6.8 mmol/L (4.00-12.00); Calcium 9.2 mg/dL (8.7-10.3); Carbon Dioxide 27.2 mmol/L (21.6-31.8); Globulin 2.3 g/dL (1.6-3.3); Non-African American GFR(CKD) 90.9 (60.0-200.0); Potassium 4.3 mmol/L (3.5-5.5); Total Bilirubin 0.3 mg/dL (0.3-1.2); Total Protein 6.6 g/dL (6.2-8.2)
[2019-09-19 19:39] LABS: Ferritin 33.1 ng/mL (10.0-291.0)
[2019-09-19 20:05] LABS: Folate, Serum 14.6 ng/mL
[2019-09-19 21:09] LABS: INR 0.95 (0.90-1.11); Partial Thromboplastin Time 27.3 sec (24.7-29.9); Prothrombin Time 10.2 sec (9.9-11.9)
[2019-09-19 22:09] LABS: Hemoglobin A1C 5.1 % (4.0-6.0)
[2019-09-22 15:28] LABS: Zinc, Serum 89 ug/dL (60-130)
[2019-09-23 06:17] LABS: Vit B1(Thiamine) 78 ug/L (38-122)
[2019-09-23 06:38] LABS: Vitamin A 54 ug/dL (38-106)
[2019-09-24 01:35] LABS: Selenium 116 mcg/L (63-160)
== END | disposition home or self-care (01) ==
LOC: LABWHC1 11:21
PROVIDERS: ATTEND Surgery Plastic and Reconstructive Surgery
DX: E21.1 Secondary hyperparathyroidism, not elsewhere classified (principal); E89.1 Postprocedural hypoinsulinemia; D50.9 Iron deficiency anemia, unspecified; K90.9 Intestinal malabsorption, unspecified; E55.9 Vitamin D deficiency, unspecified; K74.1 Hepatic sclerosis; N19 Unspecified kidney failure; K50.90 Crohn's disease, unspecified, without complications
CPT/HCPCS: 36415; 80053; 80061; 82306; 82525; 82607; 82728; 82746; 83036; 83540; 83550; 83735; 83970; 84100; 84134; 84255; 84425; 84443; 84590; 84630; 85027; 85610; 85730; 93005

== ENCOUNTER 2019-09-29 07:02 | Day surgery (SDC) | payer BC ==
[2019-09-23 15:54] VITALS: BMI 31.1
--- NOTE | 2019-09-28 18:41 | P.GSHP ---
History of Present Illness H&P Date: 09/29/19 CHIEF COMPLAINT: History of intra-abdominal adhesions HISTORY OF PRESENT ILLNESS: The patient is a 43-year-old female who presents with history of intra-abdominal adhesions from multiple prior surgeries including increasing abdominal pain. She now presents for diagnostic laparoscopy including lysis of adhesions. PAST MEDICAL HISTORY: Please see list. PAST SURGICAL HISTORY: Please see list. MEDICATIONS: Please see list. ALLERGIES: Please see list. SOCIAL HISTORY: Please see list. FAMILY HISTORY: No reports of Crohn disease or ulcerative colitis. REVIEW OF ORGAN SYSTEMS: CONSTITUTIONAL: No reports of fevers or chills. GI: Has GERD. PHYSICAL EXAM: VITAL SIGNS: Stable GENERAL: Well-developed pleasant and in no acute distress. HEENT: No scleral icterus. Extraocular movements grossly intact. Moist buccal mucosa. NECK: Supple without lymphadenopathy. CHEST: Unlabored respirations. Equal bilateral excursions. CARDIOVASCULAR: Regular rate and rhythm. Distal 2+ pulses. ABDOMEN: Soft, diffuse abdominal tenderness. No peritonitis. MUSCULOSKELETAL: No clubbing, cyanosis, or edema. ASSESSMENT: 1. Diffuse abdominal pain. 2. History of abdominal surgeries. 3. Intra-abdominal adhesions. PLAN: 1. Robotic lysis of adhesions were described in detail including risk of injury to the intestine, need for further surgery, and open technique. 2. DVT prophylaxis. 3. Antibiotic prophylaxis. Past Medical History Past Medical History: Asthma, Diabetes Mellitus, Hypertension Additional Past Medical History / Comment(s): spinal stenosis, herniated disk x2, PREVIOUS HX OF DIABETES-PRIOR TO WEIGHT LOSS History of Any Multi-Drug Resistant Organisms: None Reported Past Surgical History: Appendectomy, Back Surgery, Bariatric Surgery, Cholecystectomy, Tonsillectomy, Tubal Ligation Additional Past Surgical History / Comment(s): left breast biopsy and lumpectomy benign, EGD 11/17/15, LAPOROSCOPIC KRISTIN EN Y, panniculectomy -, back surgery for herniated disc February 2018 Past Anesthesia/Blood Transfusion Reactions: Motion Sickness, Postoperative Nausea & Vomiting (PONV) Smoking Status: Never smoker - Past Family History Sister(s) Family Medical History: Cancer Additional Family Medical History / Comment(s): MELENOMA Mother Family Medical History: Hyperlipidemia, Hypertension, Rheumatoid Arthritis (RA) Father Family Medical History: Diabetes Mellitus Additional Family Medical History / Comment(s): MAC DEGENERATION Medications and Allergies Home Medications Medication Instructions Recorded Confirmed Type Albuterol Inhaler (Mhu) [Ventolin 1 puff INHALATION RT-Q6H PRN 10/27/15 09/23/19 History Hfa Inhaler (Mhu)] ALPRAZolam [Xanax] 1 mg PO HS 12/28/15 09/23/19 History Ergocalciferol (Vitamin D2) 50,000 unit PO WEEKLY 05/08/18 09/23/19 History [Vitamin D2] Gabapentin [Neurontin] 300 mg PO TID 04/16/19 09/23/19 History Multivitamins, Thera [Multivitamin 1 tab PO DAILY 09/23/19 09/23/19 History (formulary)] Allergies Allergy/AdvReac Type Severity Reaction Status Date / Time amoxicillin trihydrate Allergy Rash/Hives Verified 09/23/19 15:49 [From Augmentin] Penicillins Allergy Rash/Hives Verified 09/23/19 15:49 potassium clavulanate Allergy Rash/Hives Verified 09/23/19 15:49 [From Augmentin]
[~2019-09-29 07:02] MED LIST changes: +ACETAMINOPHEN TAB 500 MG TAB PO STA; +DEXAMETHASONE SOD PHOSPHATE 10 MG/ML 1 ML VIAL IV ONE; +GABAPENTIN 300 MG CAP PO STA; +HEPARIN SODIUM,PORCINE 5,000 UNIT/ML 1 ML VIAL SQ SCH; +LACTATED RINGERS 1,000 ML IV SCH; +LIDOCAINE 1% (10MG/ML) FOR IV START INTRADERMA PRN; +MIDAZOLAM 2 MG/2 ML VIAL IV PRN; -MIDAZOLAM 2 MG/2 ML VIAL ONE; +ONDANSETRON 4 MG/2 ML VIAL IVP ONE; +Pre Op ABX Message 1 EACH MISC MISCELLANE ONE; +SCOPOLAMINE 1.5MG/72HR PATCH TRANSDERM STA; +diphenhydrAMINE 50 MG/ML 1 ML VIAL IVP STA; +fentaNYL (PF) 50 MCG/ML 2 ML AMP IVP PRN
[2019-09-29] MEDS ORDERED: ACETAMINOPHEN TAB 500 MG TAB ONE (07:58)
[2019-09-29] MEDS ORDERED: HEPARIN SODIUM,PORCINE 5,000 UNIT/ML 1 ML VIAL ONE (07:59)
[2019-09-29] MEDS ORDERED: ONDANSETRON 4 MG/2 ML VIAL ONE (07:59)
[2019-09-29] MEDS ORDERED: NEOSTIGMINE 1 MG/ML 10 ML VIAL ONE (09:03)
[2019-09-29] MEDS ORDERED: PROPOFOL 10 MG/ML 20 ML VIAL IV ONE (09:03)
[2019-09-29] MEDS ORDERED: MIDAZOLAM 2 MG/2 ML VIAL ONE (09:03)
[2019-09-29] MEDS ORDERED: GLYCOPYRROLATE 0.2 MG/ML 2 ML VIAL ONE (09:03)
[2019-09-29] MEDS ORDERED: fentaNYL (PF) 50 MCG/ML 2 ML AMP ONE (09:03)
[2019-09-29] MEDS ORDERED: LIDOCAINE 1% INJ 10MG/ML (20 ML MDV) ONE (09:03)
[2019-09-29] MEDS ORDERED: ROCURONIUM BROMIDE 10 MG/ML 5 ML VIAL IV ONE (09:03)
[2019-09-29] MEDS ORDERED: SUCCINYLCHOLINE CHLORIDE 100 MG/5 ML SYR IV ONE (09:03)
[2019-09-29] MEDS ORDERED: LIDOCAINE 1%-EPI 1:100,000 20 ML VIAL SQ ONE (09:39)
[2019-09-29] MEDS ORDERED: LACTATED RINGERS 1,000 ML IV ONE (10:15)
[2019-09-29 10:36] VITALS: TEMP 97.3
--- NOTE | 2019-09-29 10:47 | P.OP ---
Date of Procedure: 09/29/19 Description of Procedure: SURGEON: JAMIL DELUCA MD PREOPERATIVE DIAGNOSES: 1. Epigastric and left upper quadrant abdominal pain 2. History of multiple abdominal surgeries, peritoneal adhesions 3. History of gastric bypass 4. Neuropathy 5. Chronic lower back pain 6. Generalized anxiety disorder POSTOPERATIVE DIAGNOSES: 1. Epigastric and left upper quadrant abdominal pain 2. History of multiple abdominal surgeries, peritoneal adhesions 3. History of gastric bypass 4. Neuropathy 5. Chronic lower back pain 6. Generalized anxiety disorder 7. Retroperitoneal adhesion, right lower quadrant OPERATION: 1. Robotic-assisted da Rg Xi diagnostic laparoscopy ESTIMATED BLOOD LOSS: 5 mL. SPECIMENS REMOVED: None. COMPLICATIONS: None. OPERATIVE FINDINGS: 1. No ventral hernias identified. 2. Smith's defect with complete scarring 3. Jejunojejunostomy mesenteric defect with complete scarring 4. No small bowel identified 5. Highly redundant hepatic flexure, ascending colon with risk of cecal bascule 6. Retroperitoneal adhesion, right lower quadrant and previous appendectomy stump site involving terminal ileum INDICATIONS: The patient is a 43-year-old female with history of multiple abdominal surgeries including gastric bypass who presents with persistent abdominal. With her risk of internal hernias including peritoneal adhesions, surgical intervention with diagnostic laparoscopy, lysis of adhesions were described. Informed consent was obtained. Robotic assisted laparoscopic approach was described. Benefits and risks of the procedure including but not limited to bleeding, infection, injury to the small bowel was described. Informed consent was obtained. DESCRIPTION OF PROCEDURE: Patient was brought to the operating room, placed in supine position. After general induction, the abdomen had been prepped and draped in standard sterile fashion. The robotic da Rg XI system was primed. After a timeout protocol was performed, the patient had been prepped and draped in standard sterile fashion. A 5 mm 0 degrees laparoscopic trocar entry was performed along the left upper quadrant. The abdomen was insufflated to 15 mmHg pressure which she tolerated well. Diagnostic laparoscopy was performed without greater omentum to abdominal wall adhesions identified. The small bowel was unremarkable and gross appearance. Next, three 8 mm robotic ports were placed along the right lateral abdominal wall. Please note that the ports were placed at least 10 to 15 cm away from the target anatomy. The robot was docked along the right lateral abdomen. Instruments including graspers were interchanged by the property management assistant. I had sat at the console. No evidence of incisional hernias were identified. The rest of the abdomen was unremarkable for small bowel pathology. The small bowel from the lakia limb to distal ileum was inspected. No small bowel volvulus was identified. The Smith's defect was completely scarred without internal hernia. The jejunojejunostomy mesenteric defect was completely scarred without internal hernia. The jejunojejunostomy was patent. The gastrojejunal anastomosis was unremarkable. No adhesions from the liver to the small bowel is identified. A highly redundant hepatic flexure including ascending colon was identified with risk of cecal bascule. Additionally, the appendiceal stump was identified with staple edge. The fat pad of the terminal ileum was tightly adherent to the retroperitoneum from adhesion unable to lyse with the location at the retroperitoneum. The rest of the descending sigmoid colon was unremarkable. The rest of the colon was unremarkable for bowel obstruction or ischemia. The small bowel was viable.The robot was undocked. All pneumoperitoneum and instruments were evacuated from the abdominal cavity. The incisions were cleansed with dilute hydrogen peroxide and reapproximated using 4-0 Monocryl in an interrupted subcuticular fashion. Please note along the trocar sites, local anesthetic was placed as a field block prior to insertion of all instruments. Exofin was applied to the skin. At the end of the procedure needle, sponge, and instrument count had been verified correct by the surgical device sales representative. The patient was transferred to postanesthesia care unit in stable condition. Plan - Discharge Summary Discharge Rx Participant: No New Discharge Prescriptions: New Acetaminophen Tab [Tylenol Tab] 1,000 mg PO Q6HR PRN #30 tablet PRN Reason: Pain Continue Albuterol Inhaler (Mhu) [Ventolin Hfa Inhaler (Mhu)] 1 puff INHALATION RT-Q6H PRN PRN Reason: Shortness Of Breath ALPRAZolam [Xanax] 1 mg PO HS Ergocalciferol (Vitamin D2) [Vitamin D2] 50,000 unit PO WEEKLY Gabapentin [Neurontin] 300 mg PO TID Multivitamins, Thera [Multivitamin (formulary)] 1 tab PO DAILY Discharge Medication List Albuterol Inhaler (Mhu) [Ventolin Hfa Inhaler (Mhu)] 1 puff INHALATION RT-Q6H PRN 10/27/15 [History] ALPRAZolam [Xanax] 1 mg PO HS 12/28/15 [History] Ergocalciferol (Vitamin D2) [Vitamin D2] 50,000 unit PO WEEKLY 05/08/18 [History] Gabapentin [Neurontin] 300 mg PO TID 04/16/19 [History] Multivitamins, Thera [Multivitamin (formulary)] 1 tab PO DAILY 09/23/19 [History] Acetaminophen Tab [Tylenol Tab] 1,000 mg PO Q6HR PRN #30 tablet 09/29/19 [Rx] [facility]Ref[facility] [place] [place] [facility] [place] [facility] Patient Instructions/Handouts: Exploratory Laparoscopy (DC) Activity/Diet/Wound Care/Special Instructions: No lifting over 10 pounds in 2 weeks until Oct 12June shower. No bath tub soaks for two weeks until Oct 12 Diet as tolerated. Use Tylenol scheduled for the next 24-48 hours for best pain relief. Use ice along incisions for the today to prevent swelling. Discharge Disposition: HOME SELF-CARE
[2019-09-29] MEDS: HYDROmorphone 0.5 MG/0.5 ML SYRINGE IVP PRN ×3 (10:49→11:16)
[2019-09-29] MEDS ORDERED: TAMSULOSIN 0.4 MG CAP.ER.24H PO ONE (11:30)
[2019-09-29 11:31] VITALS: RESP 16
[2019-09-29] MEDS ORDERED: KETOROLAC 30 MG/ML 1 ML VIAL IVP SCH (12:00)
[2019-09-29 12:27] VITALS: BP 126/73; PULSE 64
== END 2019-09-29 13:05 | disposition home or self-care (01) ==
LOC: OR 07:02
PROVIDERS: ATTEND Surgery Plastic and Reconstructive Surgery
DX: K66.0 Peritoneal adhesions (postprocedural) (postinfection) (principal); K91.89 Other postprocedural complications and disorders of digestive system; Q43.8 Other specified congenital malformations of intestine; G62.9 Polyneuropathy, unspecified; M54.5 Low back pain; G89.29 Other chronic pain; F41.1 Generalized anxiety disorder; I10 Essential (primary) hypertension; E11.9 Type 2 diabetes mellitus without complications; J45.909 Unspecified asthma, uncomplicated; Z79.899 Other long term (current) drug therapy; Z98.84 Bariatric surgery status; Z90.49 Acquired absence of other specified parts of digestive tract; Z88.0 Allergy status to penicillin; Z98.51 Tubal ligation status; Z90.89 Acquired absence of other organs; Z98.890 Other specified postprocedural states; Z80.8 Family history of malignant neoplasm of other organs or systems; Z82.49 Family history of ischemic heart disease and other diseases of the circulatory system; Z83.3 Family history of diabetes mellitus; Z82.69 Family history of other diseases of the musculoskeletal system and connective tissue
CPT/HCPCS: 81025; 49320; J2250; J1200; J1644; J1100; J2710; J0690; J2405; J2001; J3010; J1885; J0330; J2704; J1170

== ENCOUNTER 2019-11-12 07:32 | Day surgery (SDC) | payer BC ==
[2019-11-10 15:18] VITALS: BMI 29.9
[~2019-11-12 07:32] MED LIST changes: -ACETAMINOPHEN TAB 500 MG TAB PO STA; -DEXAMETHASONE SOD PHOSPHATE 10 MG/ML 1 ML VIAL IV ONE; -GABAPENTIN 300 MG CAP PO STA; -HEPARIN SODIUM,PORCINE 5,000 UNIT/ML 1 ML VIAL SQ SCH; -LIDOCAINE 1% (10MG/ML) FOR IV START INTRADERMA PRN; -MIDAZOLAM 2 MG/2 ML VIAL IV PRN; -ONDANSETRON 4 MG/2 ML VIAL IVP ONE; +ONDANSETRON 4 MG/2 ML VIAL IVP PRN; -Pre Op ABX Message 1 EACH MISC MISCELLANE ONE; -SCOPOLAMINE 1.5MG/72HR PATCH TRANSDERM STA; -diphenhydrAMINE 50 MG/ML 1 ML VIAL IVP STA; -fentaNYL (PF) 50 MCG/ML 2 ML AMP IVP PRN
[2019-11-12] MEDS ORDERED: LIDOCAINE 1% (10MG/ML) FOR IV START INTRADERMA ONE (08:25)
[2019-11-12] MEDS ORDERED: ONDANSETRON 4 MG/2 ML VIAL ONE (08:27)
[2019-11-12] MEDS ORDERED: SCOPOLAMINE 1.5MG/72HR PATCH TRANSDERM ONE (08:28)
[2019-11-12] MEDS ORDERED: DEXAMETHASONE SOD PHOSPHATE 10 MG/ML 1 ML VIAL IV ONE (08:28)
[2019-11-12] MEDS ORDERED: ONDANSETRON 4 MG/2 ML VIAL IVP ONE (08:28)
[2019-11-12 08:35] VITALS: TEMP 96.7
[2019-11-12] MEDS ORDERED: PROPOFOL 10 MG/ML 20 ML VIAL IV ONE (08:38)
--- NOTE | 2019-11-12 08:44 | P.GSHP ---
History of Present Illness H&P Date: 11/12/19 CHIEF COMPLAINT: Change in bowel habits HISTORY OF PRESENT ILLNESS: The patient is a 44-year-old female who presents with abdominal pain including change in bowel habits. Lower endoscopy was offered for further evaluation and management. PAST MEDICAL HISTORY: Please see list. PAST SURGICAL HISTORY: Please see list. MEDICATIONS: Please see list. ALLERGIES: Please see list. SOCIAL HISTORY: No illicit drug use FAMILY HISTORY: Family history of colon disorder REVIEW OF ORGAN SYSTEMS: CONSTITUTIONAL: No reports of fevers or chills. No reports of weight loss despite prior attempts. GI: Has diarrhea including change in bowel habits. PHYSICAL EXAM: VITAL SIGNS: Stable GENERAL: Well-developed pleasant in no acute distress. HEENT: No scleral icterus. Extraocular movements grossly intact. Moist buccal mucosa. NECK: Supple without lymphadenopathy. CHEST: Unlabored respirations. Equal bilateral excursions. CARDIOVASCULAR: Regular rate and rhythm. Distal 2+ pulses. ABDOMEN: Soft, tender right lower quadrant MUSCULOSKELETAL: No clubbing, cyanosis, or edema. ASSESSMENT: 1. Change in bowel habits. 2. Abdominal pain PLAN: 1. Recommend proceeding with a lower endoscopy Past Medical History Past Medical History: Asthma, Hypertension Additional Past Medical History / Comment(s): spinal stenosis, herniated disk x2, PREVIOUS HX OF DIABETES-PRIOR TO WEIGHT LOSS History of Any Multi-Drug Resistant Organisms: None Reported Past Surgical History: Appendectomy, Back Surgery, Bariatric Surgery, Cholecystectomy, Tonsillectomy, Tubal Ligation Additional Past Surgical History / Comment(s): left breast biopsy and lumpectomy benign, EGD 11/17/15, LAPAROSCOPIC KRISTIN EN Y, panniculectomy -, back surgery for herniated disc February 2018, surgery for abdominal adhesions Past Anesthesia/Blood Transfusion Reactions: Motion Sickness, Postoperative Nausea & Vomiting (PONV) Smoking Status: Never smoker - Past Family History Sister(s) Family Medical History: Cancer Additional Family Medical History / Comment(s): MELENOMA Mother Family Medical History: Hyperlipidemia, Hypertension, Rheumatoid Arthritis (RA) Father Family Medical History: Diabetes Mellitus Additional Family Medical History / Comment(s): MAC DEGENERATION Medications and Allergies Home Medications Medication Instructions Recorded Confirmed Type Albuterol Inhaler (Mhu) [Ventolin 1 puff INHALATION RT-Q6H PRN 10/27/15 11/12/19 History Hfa Inhaler (Mhu)] ALPRAZolam [Xanax] 0.5 mg PO HS 12/28/15 11/12/19 History Ergocalciferol (Vitamin D2) 50,000 unit PO WEEKLY 05/08/18 11/12/19 History [Vitamin D2] Gabapentin [Neurontin] 300 mg PO TID 04/16/19 11/12/19 History Multivitamins, Thera [Multivitamin 1 tab PO DAILY 09/23/19 11/12/19 History (formulary)] Acetaminophen Tab [Tylenol Tab] 1,000 mg PO Q6HR PRN #30 tablet 09/29/19 11/12/19 Rx Allergies Allergy/AdvReac Type Severity Reaction Status Date / Time amoxicillin trihydrate Allergy Rash/Hives Verified 11/12/19 08:21 [From Augmentin] Penicillins Allergy Rash/Hives Verified 11/12/19 08:21 potassium clavulanate Allergy Rash/Hives Verified 11/12/19 08:21 [From Augmentin] Surgical - Exam Vital Signs Temp Pulse Resp BP Pulse Ox 96.7 F L 69 18 146/74 100 11/12/19 08:33 11/12/19 08:33 11/12/19 08:33 11/12/19 08:33 11/12/19 08:33
--- NOTE | 2019-11-12 09:06 | P.PCN ---
Date of Procedure: 11/12/19 Description of Procedure: PREOPERATIVE DIAGNOSIS: Change in bowel habits Familial colon disorder POSTOPERATIVE DIAGNOSIS: Change in bowel habits Familial colon disorder Microscopic colitis OPERATION: Colonoscopy to the cecum, ileocecal valve and appendiceal orifice. Colonoscopy with random colon biopsies, cold forceps SURGEON: Pita Gramajo MD. ANESTHESIA: MAC. INDICATIONS: The patient is a 44-year-old female who presents for change in bowel habits including abdominal pain and familial colon disorder. Benefits and risks were described and informed consent was obtained. DESCRIPTION OF PROCEDURE: The patient had undergone Gatorade, MiraLAX and Dulcolax prep. She had been brought into the operating room and laid in the left lateral decubitus position. After adequate intravenous sedation, the rectum was examined with 2% lidocaine jelly. No external hemorrhoids were encountered. The rectal tone was within normal limits. No lesions were palpated in the rectal vault. An Olympus colonoscope was advanced until the cecum, ileocecal valve and appendiceal orifice were clearly viewed. The prep was fair recurring irrigation to view the mucosal restrepo No scattered diverticulosis was encountered. No colonic polyps were found. Random biopsies were obtained for microscopic colitis. Retrofl exion of the scope demonstrated grade 1 internal hemorrhoids without active bleeding or inflammation. The colon was desufflated. The patient had tolerated the procedure well. Withdrawal time was over 6 minutes. FINDINGS: Aronchick preparation quality scale 3 (1-5) Internal hemorrhoids, grade 1 No external prolapsed hemorrhoids. No arteriovenous malformations. No adenomatous polyps. Cold forceps biopsies for microscopic colitis RECOMMENDATIONS: Lower endoscopy age 51, in 7 years 2026 Plan - Discharge Summary Discharge Rx Participant: Yes New Discharge Prescriptions: Continue Albuterol Inhaler (Mhu) [Ventolin Hfa Inhaler (Mhu)] 1 puff INHALATION RT-Q6H PRN PRN Reason: Shortness Of Breath ALPRAZolam [Xanax] 0.5 mg PO HS Ergocalciferol (Vitamin D2) [Vitamin D2] 50,000 unit PO WEEKLY Gabapentin [Neurontin] 300 mg PO TID Multivitamins, Thera [Multivitamin (formulary)] 1 tab PO DAILY Acetaminophen Tab [Tylenol] 1,000 mg PO Q6HR PRN #30 tablet PRN Reason: Pain Discharge Medication List Albuterol Inhaler (Mhu) [Ventolin Hfa Inhaler (Mhu)] 1 puff INHALATION RT-Q6H PRN 10/27/15 [History] ALPRAZolam [Xanax] 0.5 mg PO HS 12/28/15 [History] Ergocalciferol (Vitamin D2) [Vitamin D2] 50,000 unit PO WEEKLY 05/08/18 [History] Gabapentin [Neurontin] 300 mg PO TID 04/16/19 [History] Multivitamins, Thera [Multivitamin (formulary)] 1 tab PO DAILY 09/23/19 [History] Acetaminophen Tab [Tylenol] 1,000 mg PO Q6HR PRN #30 tablet 09/29/19 [Rx] Follow [facility]ment[facility] [facility] [place] [place] [place] Patient Instructions/Handouts: *Surgery [facility] - Scopalamine Patch Instructions, Colonoscopy (DC) Activity/Diet/Wound Care/Special Instructions: Expect blood in stools for up to 1 week, 11/19/19. Stop all multivitamin supplements for 1 week. May resume supplements 11/20/19. Repeat colonoscopy age [id number] Discharge Disposition: HOME SELF-CARE
[2019-11-12 09:17] VITALS: BP 125/84; PULSE 64; RESP 16
== END 2019-11-12 09:40 | disposition home or self-care (01) ==
LOC: ORWHC2ENDO 07:32
PROVIDERS: ATTEND Surgery Plastic and Reconstructive Surgery
DX: D72.1 Eosinophilia (principal); R19.4 Change in bowel habit; K64.0 First degree hemorrhoids; Z83.79 Family history of other diseases of the digestive system; J45.909 Unspecified asthma, uncomplicated; I10 Essential (primary) hypertension; M48.00 Spinal stenosis, site unspecified; Z98.84 Bariatric surgery status; Z90.49 Acquired absence of other specified parts of digestive tract; Z98.51 Tubal ligation status; Z98.890 Other specified postprocedural states; Z80.8 Family history of malignant neoplasm of other organs or systems; Z83.438 Family history of other disorder of lipoprotein metabolism and other lipidemia; Z82.61 Family history of arthritis; Z82.49 Family history of ischemic heart disease and other diseases of the circulatory system; Z83.3 Family history of diabetes mellitus; Z83.518 Family history of other specified eye disorder; Z79.899 Other long term (current) drug therapy; Z88.0 Allergy status to penicillin
CPT/HCPCS: 81025; 45380; J1100; J2405; J2704; 88305

== ENCOUNTER 2019-12-25 13:38 | Day surgery (SDC) | payer BC ==
[2019-12-23 12:27] VITALS: BMI 29.2
--- NOTE | 2019-12-25 07:31 | P.GSHP ---
History of Present Illness H&P Date: 12/25/19 CHIEF COMPLAINT: Cyst of the forehead HISTORY OF PRESENT ILLNESS: The patient is a 44 year-old female with history of cyst on the forehead. She presents today for surgical excision. PAST MEDICAL HISTORY: Please see list. PAST SURGICAL HISTORY: Please see list. MEDICATIONS: Please see list. ALLERGIES: Please see list. SOCIAL HISTORY: No illicit drug use FAMILY HISTORY: No reports of Crohn disease or ulcerative colitis. REVIEW OF ORGAN SYSTEMS: CONSTITUTIONAL: No reports of fevers or chills. GI: Denies any blood in stools or constipation. PHYSICAL EXAM: VITAL SIGNS: Stable SKIN: Well perfused. Good skin turgor. 2 cm lesion overlying the right forehead Musculoskeletal: No clubbing cyanosis or edema GENERAL: Well developed and in no acute distress. Pleasant. HEENT: No sclera icterus. Extraocular movements grossly intact. Moist buccal mucosa. Head is atraumatic, normocephalic. Hears conversational speech. No nasal drainage. NECK: Supple without lymphadenopathy. No JV distention. CHEST: Non-labored respirations and equal bilateral excursions. CARDIOVASCULAR: Regular rate and rhythm. Palpable 2+ radial pulses. ABDOMEN: Soft. Non-tender. Nondistended. NEUROLOGIC: No focal or lateralizing signs. PSYCH: Appropriate affect. Alert and oriented to person, place and time. ASSESSMENT: 1. Forehead cyst PLAN: 1. Will proceed of excision of forehead cyst 2. DVT prophylaxis. 3. Antibiotic prophylaxis. 4. Time of recovery, at least one week. 5. Benefits and risks including numbness, decreased sensation, pain, cosmetic deformity were reviewed Past Medical History Past Medical History: Asthma, Hypertension Additional Past Medical History / Comment(s): spinal stenosis, herniated disk x2, PREVIOUS HX OF DIABETES-PRIOR TO WEIGHT LOSS ,. PRIOR HISTORY OF HYPERTENSION PRIOR WEIGHT LOSS, History of Any Multi-Drug Resistant Organisms: None Reported Past Surgical History: Appendectomy, Back Surgery, Bariatric Surgery, Cholecystectomy, Tonsillectomy, Tubal Ligation Additional Past Surgical History / Comment(s): left breast biopsy and lumpectomy , LAPAROSCOPIC KRISTIN EN Y, panniculectomy -, back surgery for herniated disc February 2018, surgery for abdominal adhesions, COLONOSCOPY Past Anesthesia/Blood Transfusion Reactions: Motion Sickness, Postoperative Nausea & Vomiting (PONV) Smoking Status: Never smoker - Past Family History Sister(s) Family Medical History: Cancer Additional Family Medical History / Comment(s): MELENOMA Mother Family Medical History: Hyperlipidemia, Hypertension, Rheumatoid Arthritis (RA) Father Family Medical History: Diabetes Mellitus Additional Family Medical History / Comment(s): MAC DEGENERATION Medications and Allergies Home Medications Medication Instructions Recorded Confirmed Type Albuterol Inhaler (Mhu) [Ventolin 1 puff INHALATION RT-Q6H PRN 10/27/15 12/23/19 History Hfa Inhaler (Mhu)] ALPRAZolam [Xanax] 0.5 mg PO HS 12/28/15 12/23/19 History Ergocalciferol (Vitamin D2) 50,000 unit PO WE 05/08/18 12/23/19 History [Vitamin D2] Gabapentin [Neurontin] 300 mg PO TID 04/16/19 12/23/19 History Multivitamins, Thera [Multivitamin 1 tab PO DAILY 09/23/19 12/23/19 History (formulary)] Nortriptyline HCl [Pamelor] 30 mg PO HS 12/03/19 12/23/19 History Allergies Allergy/AdvReac Type Severity Reaction Status Date / Time amoxicillin trihydrate Allergy Rash/Hives Verified 12/23/19 11:47 [From Augmentin] Penicillins Allergy Rash/Hives Verified 12/23/19 11:47 potassium clavulanate Allergy Rash/Hives Verified 12/23/19 11:47 [From Augmentin]
[~2019-12-25 13:38] MED LIST changes: +ACETAMINOPHEN TAB 500 MG TAB PO STA; +GABAPENTIN 300 MG CAP PO STA; -ONDANSETRON 4 MG/2 ML VIAL IVP PRN; +Pre Op ABX Message 1 EACH MISC MISCELLANE ONE
[2019-12-25 13:56] VITALS: RESP 16
[2019-12-25] MEDS ORDERED: ONDANSETRON 4 MG/2 ML VIAL ONE (14:00)
[2019-12-25] MEDS ORDERED: LIDOCAINE 1% (10MG/ML) FOR IV START INTRADERMA ONE (14:02)
[2019-12-25] MEDS ORDERED: ONDANSETRON 4 MG/2 ML VIAL IVP ONE (14:03)
[2019-12-25] MEDS ORDERED: DEXAMETHASONE SOD PHOSPHATE 10 MG/ML 1 ML VIAL IV ONE (14:03)
[2019-12-25] MEDS ORDERED: MIDAZOLAM 2 MG/2 ML VIAL IV ONE (14:28)
[2019-12-25] MEDS ORDERED: fentaNYL (PF) 50 MCG/ML 2 ML AMP ONE (15:44)
[2019-12-25] MEDS ORDERED: MIDAZOLAM 2 MG/2 ML VIAL ONE (15:44)
[2019-12-25] MEDS ORDERED: PROPOFOL 10 MG/ML 20 ML VIAL IV ONE (15:44)
[2019-12-25] MEDS ORDERED: LIDOCAINE 1% INJ 10MG/ML (20 ML MDV) ONE (15:44)
[2019-12-25] MEDS ORDERED: LIDOCAINE 1%-EPI 1:100,000 20 ML VIAL SQ ONE ×2 (16:09→16:10)
[2019-12-25 16:58] VITALS: TEMP 97.1
--- NOTE | 2019-12-25 17:22 | P.OP ---
Date of Procedure: 12/25/19 Description of Procedure: SURGEON: PITA GRAMAJO MD MERCHANDISE SUPPORT ASSOCIATE: None. PREOPERATIVE DIAGNOSES: 1. Right forehead tumor, 4 cm 2. Generalized anxiety disorder POSTOPERATIVE DIAGNOSES: 1. Right forehead tumor, 4 cm 2. Generalized anxiety disorder PROCEDURES PERFORMED: 1. Excision of deep subcutaneous forehead tumor, 4 cm 2. Intermediate closure forehead incision, 4 cm Anesthesia: LMA local Estimated Blood Loss (ml): 10 Pathology: other (Forehead mass) Condition: stable Disposition: same day COMPLICATIONS: None. INDICATIONS: The patient is a 44-year-old female who presents with symptomatic forehead tumor. Benefits and risks of surgical intervention were described including bleeding, pain, infection, cosmetic deformity, including scarring were reviewed in detail of which the patient wished to proceed. Informed consent was obtained. DESCRIPTION OR PROCEDURE: Patient was brought into the operating room In place in supine position. After induction, the forehead was prepped and draped in a standard sterile fashion. Timeout protocol was confirmed with the surgical team regarding the patient's name, procedure to be performed including preoperative medications. DVT prophylaxis was confirmed. The lesion was measured with a ruler 4 cm x 4 cm was placed using indelible mar ker. A field block was placed of the forehead using 10 mL local. A transverse incision using #15 blade was made along the marking into the deep subcutaneous tissue to the fascia. Electro-Bovie cautery was used for dissection and elevation of the tissue to the fascia. Skin flaps were elevated and developed with undermining to prepare for closure of the excision. Deep subcutaneous tissue closure using 3-0 Vicryl in interrupted fashion was placed. Then 4-0 Monocryl were placed along the incision. In a running subcuticular fashion. The skin was cleansed with hydrogen peroxide followed Exofin and skin colored Steri-strips. At the end of the procedure, needle, sponge, and instrument count was verified correct by certified surgical tech/first assistant. The patient tolerated the procedure well. Operative Findings: 1. Excision of deep subcutaneous tumor with undermining for intermediate closure 4 cm. Plan - Discharge Summary Discharge Rx Participant: No New Discharge Prescriptions: New Acetaminophen [Tylenol] 650 mg PO Q4H #30 tab Continue Albuterol Inhaler (Mhu) [Ventolin Hfa Inhaler (Mhu)] 1 puff INHALATION RT-Q6H PRN PRN Reason: Shortness Of Breath ALPRAZolam [Xanax] 0.5 mg PO HS Ergocalciferol (Vitamin D2) [Vitamin D2] 50,000 unit PO WE Gabapentin [Neurontin] 300 mg PO TID Multivitamins, Thera [Multivitamin (formulary)] 1 tab PO DAILY Nortriptyline HCl [Pamelor] 30 mg PO HS Discharge Medication List Albuterol Inhaler (Mhu) [Ventolin Hfa Inhaler (Mhu)] 1 puff INHALATION RT-Q6H PRN 10/27/15 [History] ALPRAZolam [Xanax] 0.5 mg PO HS 12/28/15 [History] Ergocalciferol (Vitamin D2) [Vitamin D2] 50,000 unit PO WE 05/08/18 [History] Gabapentin [Neurontin] 300 mg PO TID 04/16/19 [History] Multivitamins, Thera [Multivitamin (formulary)] 1 tab PO DAILY 09/23/19 [History] Nortriptyline HCl [Pamelor] 30 mg PO HS 12/03/19 [History] Acetaminophen [Tylenol] 650 mg PO Q4H #30 tab 12/25/19 [Rx] Follow up Appointment(s)/Referral(s): Pita Gramajo MD [STAFF PHYSICIAN] - 12/30/19 Patient Instructions/Handouts: Dermal Cyst Excision (DC), Excision of Skin Lesion (DC) Activity/Diet/Wound Care/Special Instructions: EXPECT BRUISING OVER FACE, EYES FOR 1 WEEK Avoid blowing nose as might cause bleeding and bruising. Sleep on elevated pillow at least 2-3 Diet as tolerated Use Tylenol scheduled for the next 24-48 hours for best pain relief. Use ice along incisions for the today to prevent swelling. Discharge Disposition: HOME SELF-CARE
[2019-12-25] MEDS ORDERED: LACTATED RINGERS 1,000 ML IV ONE (17:26)
[2019-12-25 17:58] VITALS: PULSE 68
[2019-12-25] MEDS ORDERED: ACETAMINOPHEN TAB 325 MG TAB ONE (18:14)
[2019-12-25] MEDS ORDERED: ACETAMINOPHEN TAB 325 MG TAB PO ONE (18:15)
[2019-12-25 18:20] VITALS: BP 135/84
== END 2019-12-25 18:48 | disposition home or self-care (01) ==
LOC: OR 13:38
PROVIDERS: ATTEND Surgery Plastic and Reconstructive Surgery
DX: F41.1 Generalized anxiety disorder (principal); J45.909 Unspecified asthma, uncomplicated; I10 Essential (primary) hypertension; F41.9 Anxiety disorder, unspecified; Z98.84 Bariatric surgery status; Z90.49 Acquired absence of other specified parts of digestive tract; Z98.51 Tubal ligation status; Z98.890 Other specified postprocedural states; Z79.899 Other long term (current) drug therapy; Z88.0 Allergy status to penicillin
CPT/HCPCS: 81025; 11444; 12055; J2250; J1100; J2405; J2001; J3010; J2704; 88305

== ENCOUNTER 2019-12-29 07:30 | Inpatient (IN) | payer BC ==
[2020-01-06 14:15] VITALS: BMI 29.9
[2020-01-09] MEDS ORDERED: metroNIDAZOLE-NS PMX 500 MG in SALINE 1 100ML.BAG IVPB ONE (05:00)
[2020-01-09] MEDS ORDERED: HEPARIN SODIUM,PORCINE 5,000 UNIT/ML 1 ML VIAL SQ ONE (06:00)
[2020-01-09] MEDS ORDERED: LIDOCAINE 1% (10MG/ML) FOR IV START INTRADERMA PRN (06:17)
[2020-01-09] MEDS ORDERED: HYDROmorphone 0.5 MG/0.5 ML SYRINGE IVP PRN (06:17)
[2020-01-09] MEDS ORDERED: Antibiotics per Pharmacy 1 EACH MISC MISCELLANE PRN (11:26)
[2020-01-09] MEDS ORDERED: SCOPOLAMINE 1.5MG/72HR PATCH TRANSDERM STA (11:30)
--- NOTE | 2020-01-09 11:30 | P.GSHP ---
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 She completed a colonoscopy which excluded underlying neoplasm. Now she presents for sigmoid colon resection. PAST MEDICAL HISTORY: Please see list and reviewed PAST SURGICAL HISTORY: Please see list and reviewed MEDICATIONS: Please see list and reviewed ALLERGIES: Please see list and reviewed SOCIAL HISTORY: Please see list and reviewed FAMILY HISTORY: Please see list and reviewed REVIEW OF ORGAN SYSTEMS: CONSTITUTIONAL: Denies any fever or chills. HEENT: Denies any trouble with vision or nosebleeds. No difficulty swallowing. LYMPHATIC: The patient denies any lumps and bumps around the neck. ENDOCRINE: Denies any thyroid disorders. Has blood sugar glucose intolerance. RESPIRATORY: Denies pneumonia. Denies any troubles with breathing or dyspnea on exertion. CARDIOVASCULAR: Denies any chest pain, palpitations, or recent heart attacks. GASTROINTESTINAL: Has constipation and recent colonoscopy and last 6 months. GENITOURINARY: Has increased urinary frequency. MUSCULOSKELETAL: Has back pain, stiffness, joint arthritis. NEUROLOGIC: Denies any numbness or tingling along the distal extremities. No seizure disorders or headaches. PSYCHIATRIC: No suidical ideation. HEMATOLOGIC: Denies any abnormal bleeding or bruising. PHYSICAL EXAM: VITAL SIGNS: Stable GENERAL: Well-developed pleasant in no acute distress. HEENT: No scleral icterus. Extraocular movements grossly intact. Moist buccal mucosa. He is hard of hearing. NECK: Supple without lymphadenopathy. CHEST: Unlabored respirations. Equal bilateral excursions. CARDIOVASCULAR: Regular rate and rhythm. Distal 2+ pulses. ABDOMEN: Soft, nontender, nondistended. MUSCULOSKELETAL: No clubbing, cyanosis, or edema. NERUO: Regular 2-12 grossly intact. PSYCH: Alert and oriented to person place and time. ASSESSMENT: 1. History of previous large bowel obstruction. 2. Cecal volvulus. PLAN: 1. Benefits and risks of surgical intervention robotic right hemicolectomy reviewed in detail. Robotic-assisted approach was also described. 2. She has completed an enhanced colon recovery program. 3. DVT prophylaxis. 4. Antibiotic prophylaxis. Past Medical History Past Medical History: Asthma, Hypertension Additional Past Medical History / Comment(s): spinal stenosis, herniated disk x2, PREVIOUS HX OF DIABETES-PRIOR TO WEIGHT LOSS History of Any Multi-Drug Resistant Organisms: None Reported Past Surgical History: Appendectomy, Back Surgery, Bariatric Surgery, Cholecystectomy, Tonsillectomy, Tubal Ligation Additional Past Surgical History / Comment(s): left breast biopsy and lumpectomy benign, EGD 11/17/15, LAPAROSCOPIC KRISTIN EN Y, panniculectomy 2-18, back surgery for herniated disc February 2018, surgery for abdominal adhesions Past Anesthesia/Blood Transfusion Reactions: Motion Sickness, Postoperative Nausea & Vomiting (PONV) Smoking Status: Never smoker - Past Family History Sister(s) Family Medical History: Cancer Additional Family Medical History / Comment(s): MELENOMA Mother Family Medical History: Hyperlipidemia, Hypertension, Rheumatoid Arthritis (RA) Father Family Medical History: Diabetes Mellitus Additional Family Medical History / Comment(s): MAC DEGENERATION Medications and Allergies Home Medications Medication Instructions Recorded Confirmed Type RX: Albuterol Inhaler (u) 1 puff INHALATION RT-Q6H PRN 10/27/15 01/09/20 History [Ventolin Hfa Inhaler (Mhu)] RX: ALPRAZolam [Xanax] 0.25 mg PO BID 12/28/15 01/09/20 History RX: Ergocalciferol (Vitamin D2) 50,000 unit PO WE 05/08/18 01/09/20 History [Vitamin D2] RX: Gabapentin [Neurontin] 300 mg PO TID 04/16/19 01/09/20 History RX: Multivitamins, Thera 1 tab PO DAILY 09/23/19 01/09/20 History [Multivitamin (formulary)] Acetaminophen [Tylenol] 650 mg PO Q4H PRN 01/06/20 01/09/20 History Allergies Allergy/AdvReac Type Severity Reaction Status Date / Time amoxicillin trihydrate Allergy Rash/Hives Verified 01/09/20 11:07 [From Augmentin] Penicillins Allergy Rash/Hives Verified 01/09/20 11:07 potassium clavulanate Allergy Rash/Hives Verified 01/09/20 11:07 [From Augmentin]
[2020-01-09] MEDS: LACTATED RINGERS 1,000 ML IV SCH ×2 (11:34→12:21)
[2020-01-09 11:44] LABS: Basophils # (A) 0.1 k/uL (0-0.2); Basophils % (A) 1 %; Eosinophils # (A) 0.2 k/uL (0-0.7); Eosinophils % (A) 3 %; HCT 42.2 % (34.0-46.0); HGB 14.4 gm/dL (11.4-16.0); Lymphocytes # (A) 1.8 k/uL (1.0-4.8); Lymphocytes % (A) 21 %; MCH 30.9 pg (25.0-35.0); MCHC 34.1 g/dL (31.0-37.0); MCV 90.6 fL (80.0-100.0); Mean Platelet Volume 7.6; Monocytes # (A) 0.4 k/uL (0-1.0); Monocytes % (A) 4 %; Neutrophils # (A) 5.9 k/uL (1.3-7.7); Neutrophils % (A) 70 %; Platelet Count 361 k/uL (150-450); RBC 4.65 m/uL (3.80-5.40); RDW 12.6 % (11.5-15.5); WBC 8.4 k/uL (3.8-10.6)
[2020-01-09] MEDS: ACETAMINOPHEN TAB 500 MG TAB PO ONE ×2 (11:45→19:26)
[2020-01-09] MEDS: ALVIMOPAN 12 MG CAPSULE PO ONE ×2 (11:45→19:26)
[2020-01-09] MEDS: MELOXICAM 7.5 MG TAB PO ONE ×2 (11:46→19:26)
[2020-01-09 11:53] LABS: ALT 13 U/L (4-34); AST 19 U/L (14-36); African American GFR (CKD) >90 (>60 ml/min/1.73 sqM); Albumin 4.3 g/dL (3.5-5.0); Alkaline Phosphatase 86 U/L (38-126); Anion Gap 5 mmol/L; Blood Urea Nitrogen 13 mg/dL (7-17); Calcium 9.4 mg/dL (8.4-10.2); Carbon Dioxide 28 mmol/L (22-30); Chloride 107 mmol/L (98-107); Glucose 90 mg/dL (74-99); Non-African American GFR(CKD) >90 (>60 ml/min/1.73 sqM); Potassium 4.5 mmol/L (3.5-5.1); Sodium 140 mmol/L (137-145); Total Bilirubin 0.6 mg/dL (0.2-1.3); Total Protein 7.4 g/dL (6.3-8.2)
[2020-01-09] MEDS: DEXAMETHASONE SOD PHOSPHATE 4 MG/ML 1 ML VIAL IV ONE ×2 (11:57→19:26)
[2020-01-09] MEDS: ONDANSETRON 4 MG/2 ML VIAL IVP ONE ×2 (11:57→19:26)
[2020-01-09] MEDS: SCOPOLAMINE 1.5MG/72HR PATCH TRANSDERM ONE ×2 (11:57→19:26)
[2020-01-09] MEDS ORDERED: MIDAZOLAM 2 MG/2 ML VIAL IVP ONE ×2 (11:59→12:02)
[2020-01-09] MEDS ORDERED: fentaNYL (PF) 50 MCG/ML 2 ML AMP IVP ONE ×2 (11:59→12:02)
[2020-01-09] MEDS ORDERED: MORPHINE SULFATE 2 MG/ML SYRINGE IVP PRN (12:17)
[2020-01-09] MEDS ORDERED: MIDAZOLAM 2 MG/2 ML VIAL ONE (12:17)
[2020-01-09] MEDS ORDERED: PHENYLEPHRINE-0.9% NACL SYG 1 MG/10 ML SYRINGE ONE (12:17)
[2020-01-09] MEDS ORDERED: SUCCINYLCHOLINE CHLORIDE 100 MG/5 ML SYR IV ONE (12:17)
[2020-01-09] MEDS ORDERED: WATER FOR INJECTION, STERILE 10 ML VIAL IV ONE (12:17)
[2020-01-09] MEDS ORDERED: NEOSTIGMINE 1 MG/ML 10 ML VIAL ONE (12:17)
[2020-01-09] MEDS ORDERED: NALOXONE 0.4 MG/ML 1 ML VIAL IV PRN (12:17)
[2020-01-09] MEDS ORDERED: HEPARIN SODIUM,PORCINE 5,000 UNIT/ML 1 ML VIAL ONE (12:17)
[2020-01-09] MEDS ORDERED: fentaNYL (PF) 50 MCG/ML 2 ML AMP ONE (12:17)
[2020-01-09] MEDS ORDERED: ePHEDrine SULFATE/0.9% NACL/PF 50 MG/5 ML SYRINGE IV ONE (12:17)
[2020-01-09] MEDS ORDERED: LIDOCAINE 1% INJ 10MG/ML (20 ML MDV) ONE (12:17)
[2020-01-09] MEDS ORDERED: PROPOFOL 10 MG/ML 20 ML VIAL IV ONE (12:17)
[2020-01-09] MEDS ORDERED: GLYCOPYRROLATE 0.2 MG/ML 2 ML VIAL ONE (12:17)
[2020-01-09] MEDS ORDERED: ROCURONIUM 10 MG/ML (10 ML VIAL) IV ONE (12:17)
[2020-01-09] MEDS ORDERED: LIDOCAINE 1%-EPI 1:100,000 20 ML VIAL SQ ONE ×2 (12:55→13:12)
[2020-01-09] MEDS ORDERED: LACTATED RINGERS 1,000 ML IV ONE ×2 (12:55→15:40)
[2020-01-09] MEDS: ROPIVACAINE 250 MG, fentaNYL (PF) 1,250 MCG in SODIUM CHLORIDE 0.9% 175 ML EPIDURAL PRN ×2 (17:08→17:59)
[2020-01-09] MEDS ORDERED: METOCLOPRAMIDE 5 MG/ML 2 ML VIAL IVP PRN (17:12)
[2020-01-09] MEDS ORDERED: BENZOCAINE/MENTHOL LOZENG 1 EACH LOZENGE MUCOUS MEM PRN (17:12)
--- NOTE | 2020-01-09 17:15 | P.OP ---
Date of Procedure: 01/09/20 Description of Procedure: SURGEON: JAMIL DELUCA MD Preoperative Diagnosis: 1. Cecal volvulus with right upper quadrant abdominal pain 2. Intermittent large bowel obstruction 3. Asthma 4. Chronic pain syndrome 5. Generalized anxiety disorder 6. Hypertensive heart disease 7. Spinal stenosis 8. History of gastric bypass 9. Postoperative nausea or vomiting Postoperative Diagnosis: 1. Cecal volvulus with right upper quadrant abdominal pain 2. Intermittent large bowel obstruction 3. Asthma 4. Chronic pain syndrome 5. Generalized anxiety disorder 6. Hypertensive heart disease 7. Spinal stenosis 8. History of gastric bypass 9. Postoperative nausea or vomiting Procedure(s) Performed: 1. Robot-assisted daVinci Xi laparoscopic extended right hemicolectomy Anesthesia: GETA, local, epidural Estimated Blood Loss (ml): 20 Pathology: other (terminal ileum and extended right colon en bloc) Condition: stable Disposition: floor COMPLICATIONS: None. Operative Findings: 1. High riding cecum with redundant hepatic flexure with active proximal transverse colon volvulus 2. Specimen removal at left upper quadrant 3. Unremarkable Erlin-en-Y gastric bypass 4. No evidence of small bowel volvulus INDICATIONS: The patient is a 44-year-old female who presents with recurrent right upper quadrant abdominal pain from cecal volvulus. Surgical intervention with colon resection was described in detail. Benefits and risks, including infection, open surgery possibility for additional surgery was discussed at length. Informed consent was obtained. DESCRIPTION: Earlier the patient had undergone a bowel prep using the enhanced colon recovery program. The patient was transferred to the operating room and placed in supine position. After general anesthetic, a baker catheter was placed. The abdomen was then prepped and draped in standard sterile fashion as Ioban was placed along the abdomen to minimize any contamination of skin floor. After a timeout protocol was performed, attention was then brought to the left upper quadrant whereby a 0 degree 5 mm laparoscopic trocar entry was performed. The abdominal cavity was entered and insufflated to 15 mmHg pressure, which was tolerated well. Diagnostic laparoscopy demonstrated no injury to bowel, viscera or mesentery. The liver was remarkable for hepatomegaly. Next trochars were placed along the left lateral abdomen. An robotic 8-mm trocar to the left lower abdomen. A 12 mm port was placed along the left lower quadrant. Another 8-mm port along the left upper quadrant. Ports were placed 8 cm apart from each other including 15-20 cm away from the target anatomy of the right pelvis. The 5-mm port was exchanged for a 12 mm robotic port. The patient was then placed in Trendelenburg position, at least 17, with the right side up 7. The robotic da Rg XI system was primed and docked from the left side of the patient. Using atraumatic graspers and vessel sealer, the robotic system was docked and primed as described. Instruments were interchanged by the healthcare administrative assistant including scissors, needle bulk truck driver, robotic stapler and vessel sealer. Next, attention was brought to identify the cecum. A stay suture using 0 silk was placed along the anterior serosa of the along the terminal ileum. The terminal ileum and ascending colon mesentery was mobilized using a vessel sealer whereby the colon was marked and tagged. A high riding cecum was identified. Moderately redundant hepatic flexure was identified with intermittent volvulus of the proximal transverse colon extended to the retroperitoneum. The colon was prepared for resection along the mid transverse colon including her for resection along the terminal ileum. Using robot stapler 60 mm white load, the distal ileum was divided 8 centimeters proximal to the ileocecal valve. The mesentery of the ascending colon was mobilized towards the midline using a vessel sealer. Secondary to the highly redundant hepatic flexure and ascending colon, the right colon was mobilized to the mid transverse colon and prepared for resection. The colon was divided using 60 mm blue loads. The rest of the colon mesentery was mobilized using vessel sealer including using blunt dissection. The ascending colon was mobilized from proximal to distal with the meeting point of the hepatic flexure. The vascular pedicle of the ileocolic artery was controlled using vessel sealer. The mid transverse colon and distal ileum was brought in a side to side antiperistaltic anastomotic fashion after placing interrupted sutures along the proposed farheen-lumen using 3-0 silk. A colotomy and enterotomy was prepared along both limbs along the antimesenteric border. Next, 60 mm blue stapler loads were fired to create the farheen-lumen. The farheen-lumen was reapproximated using 3-0 silk followed by 45 mm blue load for closure of the enterostomy. All needles were removed from the abdominal cavity. The robot was undocked. I re-scrubbed into the case. Via the 12 mm port of the left upper quadrant, the right colon was removed after widening the skin incision to 3-cm. All sponges were removed from the abdominal cavity. The fascial defect was oversewn using 0 Vicryl and John William. Next all pneumoperitoneum was evacuated from the abdominal cavity. The 8-mm trocar sites were reapproximated using 4-0 Monocryl in an interrupted subcuticular fashion. Local anesthetic was infiltrated to all wounds for postop analgesia. All incisions were also cleansed with diluted hydrogen peroxide. Liquid was applied to the rest of the skin incisions. The patient had tolerated the procedure well. The patient was extubated successfully. Intraoperative photos were reviewed with the patient's family who were overall pleased with the level of care. The patient was transferred to the postanesthesia care unit in stable condition.
[2020-01-09] MEDS: diphenhydrAMINE 50 MG/ML 1 ML VIAL IVP PRN ×3 (17:41→23:10)
[2020-01-09] MEDS: ONDANSETRON 4 MG/2 ML VIAL IVP PRN (19:48)
[2020-01-09] MEDS: D5-0.45% NACL WITH KCL 20MEQ/L 1,000 ML IV SCH (19:56)
[2020-01-09] MEDS ORDERED: ALBUTEROL NEBULIZED 2.5 MG/3 ML INHALATION PRN (22:09)
[2020-01-09] MEDS: HEPARIN SODIUM,PORCINE 5,000 UNIT/ML 1 ML VIAL SQ SCH (23:10)
[2020-01-09] MEDS: ALVIMOPAN 12 MG CAPSULE PO SCH (23:10)
[2020-01-09] MEDS: ALPRAZolam 0.25 MG TAB PO SCH (23:10)
[2020-01-09] MEDS: GABAPENTIN 300 MG CAP PO SCH (23:10)
[2020-01-09] MEDS: HYDROmorphone 1 MG/ML 1 ML SYRINGE IVP PRN (23:11)
[2020-01-10] MEDS: D5-0.45% NACL WITH KCL 20MEQ/L 1,000 ML IV SCH ×3 (01:50→17:43)
[2020-01-10] MEDS ORDERED: NALBUPHINE 10 MG/ML (1 ML AMP) IM ONE (02:45)
[2020-01-10] MEDS: HYDROmorphone 1 MG/ML 1 ML SYRINGE IVP PRN ×4 (04:18→14:33)
[2020-01-10] MEDS ORDERED: HYDROmorphone 1 MG/ML 1 ML SYRINGE IVP STA (05:02)
[2020-01-10] MEDS: LACTATED RINGERS 1,000 ML IV SCH (06:20)
[2020-01-10 06:50] LABS: Basophils % (A) 0 %; Eosinophils # (A) 0.1 k/uL (0-0.7); Eosinophils % (A) 1 %; HCT 35.5 % (34.0-46.0); HGB 11.6 gm/dL (11.4-16.0); Lymphocytes # (A) 2.3 k/uL (1.0-4.8); Lymphocytes % (A) 25 %; MCH 29.8 pg (25.0-35.0); MCHC 32.8 g/dL (31.0-37.0); Mean Platelet Volume 7.9; Monocytes # (A) 0.6 k/uL (0-1.0); Monocytes % (A) 7 %; Neutrophils # (A) 6.2 k/uL (1.3-7.7); Neutrophils % (A) 67 %; Platelet Count 282 k/uL (150-450); RDW 13.2 % (11.5-15.5); WBC 9.4 k/uL (3.8-10.6)
[2020-01-10] MEDS: HEPARIN SODIUM,PORCINE 5,000 UNIT/ML 1 ML VIAL SQ SCH ×2 (08:12→20:21)
[2020-01-10] MEDS: ALPRAZolam 0.25 MG TAB PO SCH ×2 (08:12→20:21)
[2020-01-10] MEDS: GABAPENTIN 300 MG CAP PO SCH (08:12)
[2020-01-10] MEDS: ALVIMOPAN 12 MG CAPSULE PO SCH ×2 (08:12→20:21)
[2020-01-10 09:52] LABS: African American GFR (CKD) 129.4 (60.0-200.0); Anion Gap 6.2 mmol/L (4.00-12.00); BUN/Creat Ratio 13.33 Ratio (12.00-20.00); Calcium 8.4 mg/dL (8.7-10.3); Carbon Dioxide 24.8 mmol/L (21.6-31.8); Non-African American GFR(CKD) 111.6 (60.0-200.0)
[2020-01-10] MEDS: metroNIDAZOLE-NS PMX 500 MG in SALINE 1 100ML.BAG IVPB SCH ×2 (12:14→16:20)
[2020-01-10] MEDS: KETOROLAC 15 MG/ML 1 ML VIAL IVP SCH ×3 (12:36→23:16)
--- NOTE | 2020-01-10 15:04 | P.PN ---
Subjective Progress Note Date: 01/10/20 CHIEF COMPLAINT: Cecal volvulus HISTORY OF PRESENT ILLNESS: The patient is a 44-year-old female status post right colectomy for cecal volvulus, 01/09/20. She is complaining of pain as epidural was removed early this morning due to leaking. She reports constant itching while with epidural. Itching has improved. Burton catheter just removed. She is liquid tolerating diet. ROS: No reports of nausea and vomiting. No bowel movements. No fevers or chills. No new chest pain. No productive sputum PHYSICAL EXAM: VITAL SIGNS: Reviewed CONSTITUTIONAL: Well developed and in no acute distress. EYES: Conjuctivae without sclera icterus. Extraocular movements grossly intact. HEAD, EARS, NOSE, THROAT: Moist buccal mucosa. Head is atraumatic, normocephalic. Hears conversational speech. No nasal drainage. NECK: Supple. No thyroidomegaly. RESPIRATORY: Non-labored respirations and equal bilateral excursions. CARDIOVASCULAR: Palpable 2+ radial pulses. Regular rate. Regular rhythm. ABDOMEN: Binder repositioned. MUSCULOSKELETAL: No gross deformity of the lower extremities noted. No clubbing. No cyanosis. SKIN: Good skin turgor. Well perfused. NEUROLOGIC: Cranial nerves II through XII grossly intact. No focal or lateralizing signs. PSYCH: Appropriate affect. Alert and oriented to person, place and time. CLINICAL LABS: White blood cell count normal, 9.4. Hgb 11.6. ASSESSMENT: 1. Cecal volvulus PLAN: 1. Images and findings of surgery described with cecal volvulus. 2. Pain medication adjusted with scheduled tylenol, toradol, zanaflex, and neurontin 3. Continue hospitalization pending flatus and pain management. Objective - Vital Signs Vital signs: Vital Signs Temp 98.3 F 01/10/20 07:00 Pulse 74 01/10/20 07:00 Resp 16 01/10/20 07:00 BP 116/75 01/10/20 07:00 Pulse Ox 96 01/10/20 07:00 Intake & Output 01/09/20 01/10/20 01/10/20 18:59 06:59 18:59 Intake Total 2079.4 Output Total 245 1375 Balance 1834.4 -1375 Weight 82 kg Intake: IV 2079.4 Output: Urine 225 1375 Estimated Blood Loss 20 Other: Voiding Method Indwelling Catheter Indwelling Catheter - Labs CBC & Chem 7: 01/10/20 06:07 01/10/20 06:07 Labs: Abnormal Lab Results - Last 24 Hours (Table) 01/10/20 Range/Units 06:07 BUN 8.0 L (9.0-27.0) mg/dL Calcium 8.4 L (8.7-10.3) mg/dL Assessment and Plan (1) Cecal volvulus Current Visit: Yes Status: Acute Code(s): K56.2 - VOLVULUS SNOMED Code(s): 063373955
[2020-01-10] MEDS: ACETAMINOPHEN TAB 325 MG TAB PO SCH ×3 (16:20→23:16)
[2020-01-10] MEDS: tiZANidine 4 MG TAB PO SCH ×2 (16:20→20:21)
[2020-01-10] MEDS: GABAPENTIN 400 MG CAP PO SCH ×2 (16:20→20:21)
[2020-01-10] MEDS ORDERED: diphenhydrAMINE 50 MG/ML 1 ML VIAL IVP PRN (22:06)
[2020-01-10] MEDS ORDERED: SODIUM CHLORIDE 0.9% 1,000 ML IV ONE (22:07)
[2020-01-11] MEDS: metroNIDAZOLE-NS PMX 500 MG in SALINE 1 100ML.BAG IVPB SCH ×3 (00:16→16:28)
[2020-01-11] MEDS: D5-0.45% NACL WITH KCL 20MEQ/L 1,000 ML IV SCH ×2 (02:33→07:59)
[2020-01-11] MEDS: ACETAMINOPHEN TAB 325 MG TAB PO SCH ×5 (04:17→21:40)
[2020-01-11] MEDS: KETOROLAC 15 MG/ML 1 ML VIAL IVP SCH ×3 (05:04→15:37)
[2020-01-11] MEDS: LACTATED RINGERS 1,000 ML IV SCH (05:54)
[2020-01-11] MEDS: ONDANSETRON 4 MG/2 ML VIAL IVP PRN (06:01)
[2020-01-11 06:36] LABS: Basophils % (A) 1 %; Eosinophils # (A) 0.2 k/uL (0-0.7); Eosinophils % (A) 3 %; HCT 31.9 % (34.0-46.0); HGB 10.5 gm/dL (11.4-16.0); Lymphocytes # (A) 1.4 k/uL (1.0-4.8); Lymphocytes % (A) 19 %; MCH 30.6 pg (25.0-35.0); MCHC 32.8 g/dL (31.0-37.0); MCV 93.3 fL (80.0-100.0); Mean Platelet Volume 7.8; Monocytes # (A) 0.4 k/uL (0-1.0); Monocytes % (A) 5 %; Neutrophils # (A) 5.3 k/uL (1.3-7.7); Neutrophils % (A) 71 %; Platelet Count 247 k/uL (150-450); RBC 3.42 m/uL (3.80-5.40); RDW 12.8 % (11.5-15.5); WBC 7.4 k/uL (3.8-10.6)
[2020-01-11] MEDS: HEPARIN SODIUM,PORCINE 5,000 UNIT/ML 1 ML VIAL SQ SCH ×2 (07:57→21:48)
[2020-01-11] MEDS: ALVIMOPAN 12 MG CAPSULE PO SCH (07:58)
[2020-01-11] MEDS: tiZANidine 4 MG TAB PO SCH ×3 (07:58→21:46)
[2020-01-11] MEDS: ALPRAZolam 0.25 MG TAB PO SCH ×2 (07:58→21:46)
[2020-01-11] MEDS: GABAPENTIN 400 MG CAP PO SCH ×3 (07:58→21:46)
[2020-01-11 10:09] LABS: Blood Urea Nitrogen <5.0 mg/dL (9.0-27.0); Calcium 8.1 mg/dL (8.7-10.3); Carbon Dioxide 23.9 mmol/L (21.6-31.8); Chloride 110 mmol/L (96-109); Glucose 90 mg/dL (70-110); Non-African American GFR(CKD) 106.1 (60.0-200.0); Sodium 139 mmol/L (135-145)
[2020-01-11] MEDS: PANTOPRAZOLE 40 MG/10 ML VIAL IVP SCH (10:21)
[2020-01-11] MEDS: oxyCODONE-APAP 5-325MG 1 EACH TAB PO PRN ×3 (12:25→21:46)
--- NOTE | 2020-01-11 13:14 | P.PN ---
Subjective Progress Note Date: 01/11/20 CHIEF COMPLAINT: Cecal volvulus HISTORY OF PRESENT ILLNESS: The patient is a 44-year-old female status post right colectomy for cecal volvulus, 01/09/20. She report pain is less than the night before. She did have low blood pressure overnight. She is having non- bloody bowel movements and is passing flatus. She reports as expected incisional pain at the left upper quadrant as her epidural was not working. ROS: No reports of nausea and vomiting. Had bowel movements. No fevers or chills. No new chest pain. No productive sputum PHYSICAL EXAM: VITAL SIGNS: Reviewed CONSTITUTIONAL: Well developed and in no acute distress. EYES: Conjuctivae without sclera icterus. Extraocular movements grossly intact. HEAD, EARS, NOSE, THROAT: Moist buccal mucosa. Head is atraumatic, normocephalic. Hears conversational speech. No nasal drainage. NECK: Supple. No thyroidomegaly. RESPIRATORY: Non-labored respirations and equal bilateral excursions. CARDIOVASCULAR: Palpable 2+ radial pulses. ABDOMEN: Dressing intact. Non-distended MUSCULOSKELETAL: No gross deformity of the lower extremities noted. No clubbing. No cyanosis. SKIN: Good skin turgor. Well perfused. NEUROLOGIC: Cranial nerves II through XII grossly intact. No focal or lateralizing signs. PSYCH: Appropriate affect. Alert and oriented to person, place and time. CLINICAL LABS: White blood cell count normal, 7.4. Hgb down to 10.5. ASSESSMENT: 1. Cecal volvulus PLAN: 1. Toradol discontinued to decrease risk of bleeding 2. Started Percocet for pain 3. Start low fiber diet 4. Hep Lock IVF 5. Disposition pending pain control Objective - Vital Signs Vital signs: Vital Signs Temp 98.4 F 01/11/20 07:00 Pulse 57 L 01/11/20 07:00 Resp 16 01/11/20 07:00 BP 123/81 01/11/20 07:00 Pulse Ox 96 01/11/20 07:00 Intake & Output 01/10/20 01/11/20 01/11/20 18:59 06:59 18:59 Intake Total 1080 Output Total 900 Balance 180 Intake: Oral 1080 Output: Urine 900 Other: Voiding Method Indwelling Catheter Toilet Toilet # Voids 1 4 # Bowel Movements 1 - Labs CBC & Chem 7: 11/15/20 06:08 01/11/20 06:08 Labs: Abnormal Lab Results - Last 24 Hours (Table) 01/11/20 01/11/20 Range/Units 06:08 06:08 RBC 3.42 L (3.80-5.40) m/uL Hgb 10.5 L (11.4-16.0) gm/dL Hct 31.9 L (34.0-46.0) % Chloride 110 H (96-109) mmol/L BUN <5.0 L (9.0-27.0) mg/dL Calcium 8.1 L (8.7-10.3) mg/dL Assessment and Plan (1) Cecal volvulus Current Visit: Yes Status: Acute Code(s): K56.2 - VOLVULUS SNOMED Code(s): 477951816
[2020-01-11] MEDS ORDERED: LORazepam 2 MG/ML INJ IV PRN (22:00)
[2020-01-12] MEDS: HYDROmorphone 1 MG/ML 1 ML SYRINGE IVP PRN ×2 (02:17→21:48)
[2020-01-12] MEDS: ACETAMINOPHEN TAB 325 MG TAB PO SCH ×5 (02:22→15:35)
[2020-01-12 06:32] LABS: Basophils % (A) 0 %; Eosinophils # (A) 0.4 k/uL (0-0.7); Eosinophils % (A) 5 %; HCT 32.1 % (34.0-46.0); HGB 10.6 gm/dL (11.4-16.0); Lymphocytes # (A) 2.1 k/uL (1.0-4.8); Lymphocytes % (A) 27 %; MCH 30.9 pg (25.0-35.0); MCHC 33.1 g/dL (31.0-37.0); MCV 93.3 fL (80.0-100.0); Mean Platelet Volume 8.1; Monocytes # (A) 0.5 k/uL (0-1.0); Monocytes % (A) 6 %; Neutrophils # (A) 4.6 k/uL (1.3-7.7); Neutrophils % (A) 60 %; Platelet Count 245 k/uL (150-450); RBC 3.44 m/uL (3.80-5.40); RDW 12.7 % (11.5-15.5); WBC 7.8 k/uL (3.8-10.6)
[2020-01-12] MEDS: LACTATED RINGERS 1,000 ML IV SCH (06:47)
[2020-01-12] MEDS: PANTOPRAZOLE 40 MG/10 ML VIAL IVP SCH (07:41)
[2020-01-12] MEDS: oxyCODONE-APAP 5-325MG 1 EACH TAB PO PRN (07:42)
[2020-01-12] MEDS: tiZANidine 4 MG TAB PO SCH (07:42)
[2020-01-12] MEDS: GABAPENTIN 400 MG CAP PO SCH (07:42)
--- NOTE | 2020-01-12 10:26 | P.PN ---
Subjective Progress Note Date: 01/12/20 CHIEF COMPLAINT: Cecal volvulus HISTORY OF PRESENT ILLNESS: The patient is a 44-year-old female status post right colectomy for cecal volvulus, 01/09/20. She reports improvement of her incisional pain since surgery however still moderate. She has pre-existing history of chronic pain syndrome from chronic back pain. She reports using [place] and Flexeril in the past with some relief. Most pain she complains of is incisional pain left upper quadrant inclusion occasional right upper quadrant and right lower quadrant pain. She is passing flatus and having bowel movements. ROS: No reports of nausea and vomiting. Had bowel movements. No fevers or chills. No new chest pain. No productive sputum PHYSICAL EXAM: VITAL SIGNS: Reviewed CONSTITUTIONAL: Well developed and in no acute distress. EYES: Conjuctivae without sclera icterus. Extraocular movements grossly intact. HEAD, EARS, NOSE, THROAT: Moist buccal mucosa. Head is atraumatic, normocephalic. Hears conversational speech. No nasal drainage. RESPIRATORY: Non-labored respirations and equal bilateral excursions. CARDIOVASCULAR: Palpable 2+ radial pulses. ABDOMEN: No peritonitis. Tender left upper quadrant. Dressing intact. MUSCULOSKELETAL: No gross deformity of the lower extremities noted. No clubbing. No cyanosis. SKIN: Good skin turgor. Well perfused. NEUROLOGIC: Cranial nerves II through XII grossly intact. No focal or lateralizing signs. PSYCH: Appropriate affect. Alert and oriented to person, place and time. CLINICAL LABS: White blood cell count normal, 7.4. Hgb stable at 10.6. ASSESSMENT: 1. Cecal volvulus 2. History of chronic pain 3. Post incisional pain PLAN: 1. Per description the patient, Flexeril and Alla has helped in the past. We'll adjust pain meds. 2. Disposition pending management of pain Objective - Vital Signs Vital signs: Vital Signs Temp 98.8 F 01/12/20 07:00 Pulse 48 L 01/12/20 07:00 Resp 16 01/12/20 07:00 BP 131/82 01/12/20 07:00 Pulse Ox 98 01/12/20 07:00 Intake & Output 01/11/20 01/12/20 01/12/20 18:59 06:59 18:59 Intake Total 1080 Balance 1080 Intake: Oral 1080 Other: Voiding Method Toilet Toilet # Voids 3 1 # Bowel Movements 1 - Labs CBC & Chem 7: 01/12/20 05:54 01/11/20 06:08 Labs: Abnormal Lab Results - Last 24 Hours (Table) 01/12/20 Range/Units 05:54 RBC 3.44 L (3.80-5.40) m/uL Hgb 10.6 L (11.4-16.0) gm/dL Hct 32.1 L (34.0-46.0) % Assessment and Plan (1) Cecal volvulus Current Visit: Yes Status: Acute Code(s): K56.2 - VOLVULUS SNOMED Code(s): 928861318
[2020-01-12] MEDS ORDERED: HYDROcodone/APAP 7.5-325MG 1 EACH TAB PO SCH (13:30)
--- NOTE | 2020-01-12 15:22 | P.PAINCN ---
History of Present Illness - Reason for Consult Consult date: 01/12/20 - History of Present Illness This is a 44-year-old patient referred by Dr. Gramajo with a chief complaint of acute pain in the abdominal region. Patient had a hemicolectomy 3 days ago is continuing a persistent abdominal wall pain pain is located primarily above the umbilicus bilaterally described as burning and stabbing and made worse with any form of movement. Patient mentions that she did have an epidural placed preoperatively however they did notice it was leaking so they have removed it si nce. At home patient takes [place] 5 once a day as well as gabapentin 300 mg 3 times a day for history of low back pain. In regards to her overall management here in the hospital she's currently on Tylenol 650 mg every 4 hours, [place] 7.5 every 6 hours, Flexeril 10 mg TID, gabapentin 300 mg 3 times a day In addition to above, 13-point review of systems is also negative for chest pain, shortness of breath, changes in vision, changes in hearing, new onset weakness, abdominal pain, diarrhea, extreme fatigue, malaise, fever, skin changes, homicidal or suicidal ideation, or bowel or bladder incontinence. Physical exam: Vital Signs: Reviewed in EMR GENERAL: Well appearing, in no acute distress PSYCH: Mood and affect is appropriate. Awake, alert, and oriented SKIN: Skin color, texture, turgor normal, no rashes or lesions HEENT: Normocephalic, atraumatic. EOM intact CV: No pedal edema RESP: Respirations are unlabored, no audible wheezing GI: Abdomen well healing abdominal incision sites. Tenderness to palpation throughout the entirety of the abdomen. Some guarding. No rebound tenderness Assessment: 1. Post surgical abdominal pain Plan: - I talked to the patient regarding bilateral rectus sheath blocks. I did educate that this could help her for about 8-12 hours, at this point the patient will like to hold off and see if she gets better overnight. I did educate the patient and she would like to pursue these nerve block she can let her nurses now and we can schedule her Current medication management there are a few things we can do. - We can change her Tylenol to 1000 mg every 6hours. -We can then switch her from [place] to oxycodone 5 mg every 6 hours. This avoids having a Tylenol dose greater than 4 g a day as well as provides a different opioid medication that we have reduced for cross tolerance. -We could also consider increasing gabapentin to 600 mg 3 times a day. - Toradol would be helpful, however it is my understanding that this was discontinued given possible bleeding concerns which is understandable. If safe this can be re-started at some point in the future. -Also recommend lidocaine patches Past Medical History Past Medical History: Asthma, Hypertension Additional Past Medical History / Comment(s): spinal stenosis, herniated disk x2, PREVIOUS HX OF DIABETES-PRIOR TO WEIGHT LOSS History of Any Multi-Drug Resistant Organisms: None Reported Past Surgical History: Appendectomy, Back Surgery, Bariatric Surgery, Narcisa cystectomy, Tonsillectomy, Tubal Ligation Additional Past Surgical History / Comment(s): left breast biopsy and lumpectomy benign, EGD 11/17/15, LAPAROSCOPIC KRISTIN EN Y, panniculectomy -, back surgery for herniated disc February 2018, surgery for abdominal adhesions Past Anesthesia/Blood Transfusion Reactions: Motion Sickness, Postoperative Nausea & Vomiting (PONV) Smoking Status: Never smoker - Past Family History Sister(s) Family Medical History: Cancer Additional Family Medical History / Comment(s): MELENOMA Mother Family Medical History: Hyperlipidemia, Hypertension, Rheumatoid Arthritis (RA) Father Family Medical History: Diabetes Mellitus Additional Family Medical History / Comment(s): MAC DEGENERATION Medications and Allergies Home Medications Medication Instructions Recorded Confirmed Type Albuterol Inhaler (Mhu) [Ventolin 1 puff INHALATION RT-Q6H PRN 10/27/15 01/09/20 History Hfa Inhaler (Mhu)] ALPRAZolam [Xanax] 0.25 mg PO BID 12/28/15 01/09/20 History Ergocalciferol (Vitamin D2) 50,000 unit PO WE 05/08/18 01/09/20 History [Vitamin D2] Gabapentin [Neurontin] 300 mg PO TID 04/16/19 01/09/20 History Multivitamins, Thera [Multivitamin 1 tab PO DAILY 09/23/19 01/09/20 History (formulary)] Acetaminophen [Tylenol] 650 mg PO Q4H PRN 01/06/20 01/09/20 History Allergies Allergy/AdvReac Type Severity Reaction Status Date / Time amoxicillin trihydrate Allergy Rash/Hives Verified 01/09/20 11:07 [From Augmentin] Penicillins Allergy Rash/Hives Verified 01/09/20 11:07 potassium clavulanate Allergy Rash/Hives Verified 01/09/20 11:07 [From Augmentin] Physical Exam Vitals: Vital Signs Temp Pulse Resp BP BP Pulse Ox 01/12/20 07:00 98.8 F 48 L 16 131/82 98 01/12/20 02:53 98.1 F 47 L 99/68 97 01/11/20 20:05 60 01/11/20 19:01 98.3 F 60 95/61 95 Results CBC & Chem 7: 01/12/20 05:54 01/11/20 06:08 Labs: Abnormal Lab Results - Last 24 Hours (Table) 01/12/20 Range/Units 05:54 RBC 3.44 L (3.80-5.40) m/uL Hgb 10.6 L (11.4-16.0) gm/dL Hct 32.1 L (34.0-46.0) % PQRS Measure Charge Sheet PQRS Narrative: Smoking Status Never smoker Blood Pressure [Right Arm 99/68 Sitting] Blood Pressure [Right Arm 131/82 Standing] Blood Pressure [Left Arm 116/73 Supine] Blood Pressure [Right Arm 89/59 Supine] Pain Intensity [Abdomen] 4 Pain Intensity [Back] 5 Pain Intensity 7 Pain Scale Used Numeric (1 - 10) Scale Used Numeric (1 - 10) Home Medications: Ambulatory Orders Albuterol Inhaler (Mhu) [Ventolin Hfa Inhaler (Mhu)] 1 puff INHALATION RT-Q6H PRN 10/27/15 ALPRAZolam [Xanax] 0.25 mg PO BID 12/28/15 Ergocalciferol (Vitamin D2) [Vitamin D2] 50,000 unit PO WE 05/08/18 Gabapentin [Neurontin] 300 mg PO TID 04/16/19 Multivitamins, Thera [Multivitamin (formulary)] 1 tab PO DAILY 09/23/19 Acetaminophen [Tylenol] 650 mg PO Q4H PRN 01/06/20
[2020-01-12] MEDS: CYCLOBENZAPRINE 10 MG TAB PO SCH ×2 (15:35→21:45)
[2020-01-12] MEDS ORDERED: GABAPENTIN 300 MG CAP PO SCH (16:00)
[2020-01-12] MEDS: GABAPENTIN 300 MG CAP PO SCH ×2 (17:26→21:44)
[2020-01-12] MEDS: ACETAMINOPHEN TAB 500 MG TAB PO SCH ×2 (17:28→23:26)
[2020-01-12] MEDS: LIDOCAINE 5% PATCH TOPICAL SCH (21:45)
[2020-01-13] MEDS: ACETAMINOPHEN TAB 500 MG TAB PO SCH ×2 (05:18→11:22)
[2020-01-13 07:24] VITALS: BP 123/88; PULSE 60; RESP 16; TEMP 98.2
[2020-01-13] MEDS: LIDOCAINE 5% PATCH TOPICAL SCH (07:29)
[2020-01-13] MEDS: CYCLOBENZAPRINE 10 MG TAB PO SCH (07:40)
[2020-01-13] MEDS: GABAPENTIN 300 MG CAP PO SCH (07:41)
[2020-01-13] MEDS: PANTOPRAZOLE 40 MG/10 ML VIAL IVP SCH (07:41)
[2020-01-13] MEDS ORDERED: TAMSULOSIN 0.4 MG CAP.ER.24H PO SCH (10:15)
[2020-01-13 12:02] LABS: Appearance,Urine Clear (Clear); Bilirubin,Urine Negative (Negative); Blood,Urine Negative (Negative); Color,Urine Colorless; Glucose,Urine (UA) Negative (Negative); Ketones,Urine Negative (Negative); Leukocyte Esterase,Urine Negative (Negative); Nitrite,Urine Negative (Negative); PH, Urine 7.5 (5.0-8.0); Protein,Urine Negative (Negative); Specific Gravity,Urine 1.004 (1.001-1.035); Urobilinogen,Urine <2.0 mg/dL (<2.0)
--- NOTE | 2020-01-13 14:12 | P.DS ---
Providers Date of admission: 01/09/20 10:51 Expected date of discharge: 01/13/20 Attending physician: Pita Gramajo Consults: 01/12/20 14:18 Consult to Anesthesia Routine Consulting Provider: Anesthesia,Services Consult Reason/Comments: Abdominal wall block Primary care physician: Annie Hartley Hospital Course: Discharge diagnosis 1. Cecal volvulus status post Robot-assisted daVinci Xi laparoscopic extended right hemicolectomy 2. Intermittent large bowel obstruction 3. Asthma 4. Chronic pain syndrome 5. Generalized anxiety disorder 6. Hypertensive heart disease 7. Spinal stenosis 8. History of gastric bypass 9. Postoperative nausea or vomiting 10. Post incisional pain Hospital course The patient is a 44-year-old female with long-standing history of chronic constipation including large bowel obstruction secondary to cecal volvulus. She completed a colonoscopy which excluded underlying neoplasm. Patient is status post Robot-assisted daVinci Xi laparoscopic extended right hemicolectomy. Patient reports that her pain is controlled. She is tolerating diet. She is having bowel movements. She is up and ambulating. She is afebrile. She is stable for discharge. Physician Senior Procurement Manager note has been reviewed by physician. Signing provider agrees with the documented findings, assessment, and plan of care. Patient Condition at Discharge: Stable Plan - Discharge Summary Discharge Rx Participant: Yes New Discharge Prescriptions: New Cyclobenzaprine [Flexeril] 10 mg PO TID #9 tab Tamsulosin [Flomax] 0.4 mg PO PC-BRKFST #5 cap.er.24h Lidocaine 5% Patch [Lidoderm 5% Patch] 1 patch TOPICAL DAILY #3 patch Gabapentin [Neurontin] 600 mg PO TID PRN #9 cap PRN Reason: Pain oxyCODONE HCL [OxyIR] 5 mg PO Q6H PRN #12 tab PRN Reason: Pain Acetaminophen Tab [Tylenol] 1,000 mg PO Q6HR #30 tab Continue Albuterol Inhaler (Mhu) [Ventolin Hfa Inhaler (Mhu)] 1 puff INHALATION RT-Q6H PRN PRN Reason: Shortness Of Breath ALPRAZolam [Xanax] 0.25 mg PO BID Discontinued Ergocalciferol (Vitamin D2) [Vitamin D2] 50,000 unit PO WE Gabapentin [Neurontin] 300 mg PO TID Multivitamins, Thera [Multivitamin (formulary)] 1 tab PO DAILY Acetaminophen [Tylenol] 650 mg PO Q4H PRN PRN Reason: Pain Discharge Medication List Albuterol Inhaler (Mhu) [Ventolin Hfa Inhaler (Mhu)] 1 puff INHALATION RT-Q6H PRN 10/27/15 [History] ALPRAZolam [Xanax] 0.25 mg PO BID 12/28/15 [History] Acetaminophen Tab [Tylenol] 1,000 mg PO Q6HR #30 tab 01/13/20 [Rx] Cyclobenzaprine [Flexeril] 10 mg PO TID #9 tab 01/13/20 [Rx] Gabapentin [Neurontin] 600 mg PO TID PRN #9 cap 01/13/20 [Rx] Lidocaine 5% Patch [Lidoderm 5% Patch] 1 patch TOPICAL DAILY #3 patch 01/13/20 [Rx] Tamsulosin [Flomax] 0.4 mg PO PC-BRKFST #5 cap.er.24h 01/13/20 [Rx] oxyCODONE HCL [OxyIR] 5 mg PO Q6H PRN #12 tab 01/13/20 [Rx] [facility]ment([facility] [place] [place] [facility] [place] [facility] Patient Instructions/Handouts: Colectomy (DC), Laparoscopic Bowel Resection (IP), Colectomy Diet (DC) Activity/Diet/Wound Care/Special Instructions: Wear abdominal binder at all times for comfort. Please notify your pain specialist for narcotic pain meds. No lifting over 4 pounds in 4 weeks until Feb 07. May shower. No bath tub soaks for two weeks until Jan 22. Avoid steak, tough meats and seeds such as raspberry seeds. No driving while on narcotics. Use ice along incisions for the today to prevent swelling. Do not take Xanax while taking the narcotics Discharge Disposition: HOME SELF-CARE
[2020-01-14] MEDS ORDERED: PANTOPRAZOLE 40 MG TABLET PO SCH (07:30)
--- NOTE | 2020-01-15 02:07 | CDI ---
Documentation Clarification Form Date: 01/15/2020 From: Ben Singh Phone: If you have a question about this query, please contact Angela Pemberton, Hospice Massage Therapist at [phone] between 8am and 5pm. Admit Date: 01/09/2020 Discharge Date: 01/13/2020 Patient Name: Arianna Florian Visit Number: [id number] ATTENTION: The Clinical Documentation Specialists (CDI) and [facility] Coding Staff appreciate your assistance in clarifying documentation. Please respond to the clarification below the line at the bottom and electronically sign. The CDI & [facility] Coding staff will review the response and follow-up if needed. Please note: Queries are made part of the Legal Health Record. If you have any questions, please contact the author of this message via ITS. Dear Pita Brandon MD., Asthma is documented in throughout medical record as Asthma. History/risk factors: DM type 2, Asthma, HTN, Spinal stenosis Vital Signs: Temp 98.3 F 01/10/20 07:00 Pulse 74 01/10/20 07:00 Resp 16 01/10/20 07:00 BP 116/75 01/10/20 07:00 Pulse Ox 96 01/10/20 07:00 Treatment: Albuterol Inhaler (Mhu) [Ventolin Hfa Inhaler (Mhu)] 1 puff INHALATION RT-Q6H In your professional opinion, can you please further specify the following, if known? With Acute Exacerbation Status asthmaticus Other, please specify ___ Unable to determine Severity Mild intermittent Mild persistent Moderate persistent Severe persistent Other, please specify ____ Unable to determine Asthma with mild persistent chronic obstructive pulmonary disease, pre-existing KM 01/15/20 @ 0858 MTDD
== END 2020-01-13 15:15 | disposition home or self-care (01) | DRG 331 ==
LOC: 2ORMAIN 01-09 10:51 → 4SSUR 01-09 17:17
PROVIDERS: ADMIT Surgery Plastic and Reconstructive Surgery; ATTEND Surgery Plastic and Reconstructive Surgery
PROC: 0DTF4ZZ Resection of Right Large Intestine, Percutaneous Endoscopic Approach (ICD-10-PCS; principal; 2020-01-09 12:55)
PROC: 8E0W4CZ Robotic Assisted Procedure of Trunk Region, Percutaneous Endoscopic Approach (ICD-10-PCS; principal; 2020-01-09 12:55)
DX: K56.2 Volvulus (principal); G89.4 Chronic pain syndrome; F41.1 Generalized anxiety disorder; E11.9 Type 2 diabetes mellitus without complications; J45.909 Unspecified asthma, uncomplicated; I11.9 Hypertensive heart disease without heart failure; J45.30 Mild persistent asthma, uncomplicated; J44.9 Chronic obstructive pulmonary disease, unspecified; M48.00 Spinal stenosis, site unspecified; Z90.49 Acquired absence of other specified parts of digestive tract; Z98.890 Other specified postprocedural states; Z90.89 Acquired absence of other organs; Z98.51 Tubal ligation status; Z83.3 Family history of diabetes mellitus; Z82.49 Family history of ischemic heart disease and other diseases of the circulatory system; Z98.84 Bariatric surgery status; Z79.899 Other long term (current) drug therapy; Z82.61 Family history of arthritis; Z83.438 Family history of other disorder of lipoprotein metabolism and other lipidemia; Z88.0 Allergy status to penicillin; Z88.8 Allergy status to other drugs, medicaments and biological substances
CPT/HCPCS: 80048; 80053; 81003; 81025; 85025; 86850; 86900; 86901; 88307

== ENCOUNTER → 2020-01-06 | Outpatient (CLI) | payer BC ==
[2020-01-06 15:37] LABS: HCT 39.8 % (34.0-46.0); HGB 13.2 gm/dL (11.4-16.0); MCH 30.8 pg (25.0-35.0); MCHC 33.2 g/dL (31.0-37.0); Mean Platelet Volume 7.7; Platelet Count 318 k/uL (150-450); RBC 4.28 m/uL (3.80-5.40); RDW 13.1 % (11.5-15.5); WBC 7.7 k/uL (3.8-10.6)
[2020-01-06 15:38] LABS: ALT 11 U/L (4-34); AST 19 U/L (14-36); African American GFR (CKD) >90 (>60 ml/min/1.73 sqM); Albumin 4.2 g/dL (3.5-5.0); Alkaline Phosphatase 77 U/L (38-126); Anion Gap 6 mmol/L; Blood Urea Nitrogen 14 mg/dL (7-17); Calcium 9.2 mg/dL (8.4-10.2); Carbon Dioxide 25 mmol/L (22-30); Chloride 106 mmol/L (98-107); Glucose 92 mg/dL (74-99); Non-African American GFR(CKD) >90 (>60 ml/min/1.73 sqM); Sodium 137 mmol/L (137-145); Total Bilirubin 0.4 mg/dL (0.2-1.3); Total Protein 7.2 g/dL (6.3-8.2)
== END | disposition home or self-care (01) ==
LOC: LABPAT 14:29
PROVIDERS: ATTEND Surgery Plastic and Reconstructive Surgery
DX: Z01.818 Encounter for other preprocedural examination (principal); K56.2 Volvulus
CPT/HCPCS: 36415; 80053; 85027

== ENCOUNTER → 2020-01-21 | Outpatient (CLI) | payer BC ==
[2020-01-21 14:09] VITALS: BP 160/78; PULSE 79; RESP 18; TEMP 98.2
--- NOTE | 2020-01-21 14:51 | P.PN ---
Subjective Progress Note Date: 01/21/20 DATE OF SERVICE: 01/21/2020 CHIEF COMPLAINT: Status post gastric bypass HISTORY OF PRESENT ILLNESS: Arianna Florian is a 44-year-old female who is status post Erlin-en-Y gastric bypass on 01/03/2016. She is 4 years out. She is now status post, right hemicolectomy, 01/09/2020. She is 2 weeks out. She reports improved bowel movements. She is happy with her cosmetic result of her forehead. She had troubles with her epidural. She is doing better. At her height of 5 foot 6.25 inches, her ideal body weight is 154 pounds. Her highest weight was 269 pounbds, BMI 43.2. She comes in 182 pounds from 184 pounds, 1 months ago. She has lost 2 pounds in 1 month. Her body mass index is reduced from 43.2 to 29.2. Lifetime weight loss of 87 pounds. Lifetime percent excess weight loss is 76 %. PHYSICAL EXAM: VITAL SIGNS: 5 feet 6.25 inches, 182 pounds. BMI 29.2 Vital Signs Temp 98.2 F 01/21/20 14:03 Pulse 79 01/21/20 14:03 Resp 18 01/21/20 14:03 BP 160/78 01/21/20 14:03 Pulse Ox GENERAL: Well-developed female in no acute distress. ABDOMEN: Incision clean, dry and intact. MUSCULOSKELETAL: No clubbing, cyanosis, or edema. HEENT: No scleral icterus. Extraocular movements grossly intact. Moist buccal mucosa. Forehead incision intact and granulated. NECK: Supple without lymphadenopathy. CHEST: Non-labored respirations with equal bilateral excursions. CARDIOVASCULAR: Regular rate and rhythm. NEURO: No focal or lateralizing signs. Cranial nerves II through XII grossly within normal limits. PSYCH: Appropriate affect. Alert and oriented to person, place and time. SKIN: Good skin turgor. Well perfused. ASSESSMENT: 1. Morbid obesity due to excess calories. 2. Body mass index 43.2 decreased to 29.2 3. Status post gastric bypass. 4. Status post panniculectomy 5. Iron deficiency anemia, symptomatic. 6. Dietary surveillance and counseling 7. Vitamin D deficiency 8. Cecal volvulus 9. Status post right hemicolectomy PLAN: 1. Abdominal binder as needed. Objective - Vital Signs Vital signs: Vital Signs Temp 98.2 F 01/21/20 14:03 Pulse 79 01/21/20 14:03 Resp 18 01/21/20 14:03 BP 160/78 01/21/20 14:03 Pulse Ox Intake & Output 01/20/20 01/21/20 01/21/20 18:59 06:59 18:59 Weight 82.554 kg
== END | disposition home or self-care (01) ==
LOC: BARWHC3 13:31
PROVIDERS: ATTEND Surgery Plastic and Reconstructive Surgery
DX: E66.01 Morbid (severe) obesity due to excess calories (principal); D50.9 Iron deficiency anemia, unspecified; Z71.3 Dietary counseling and surveillance; E55.9 Vitamin D deficiency, unspecified; K56.2 Volvulus; Z68.29 Body mass index [BMI] 29.0-29.9, adult; Z98.84 Bariatric surgery status; Z98.890 Other specified postprocedural states
CPT/HCPCS: 99211

== ENCOUNTER → 2021-04-27 | Outpatient (CLI) | payer BC ==
[2021-04-27 13:38] VITALS: BP 130/88; PULSE 76; RESP 16; TEMP 97.5; BMI 28.8
--- NOTE | 2021-04-27 13:48 | P.BASOAP ---
Subjective Progress Note Date: 04/27/21 DATE OF SERVICE: 04/27/2021 CHIEF COMPLAINT: Status post gastric bypass HISTORY OF PRESENT ILLNESS: Arianna Florian is a 45-year-old female who is status post Relin-en-Y gastric bypass on 01/03/2016. She is 6 years out. She has had new back surgery x 2. She was checked for endometriosis with diagnostic laparoscopy. She comes in with new complaints. She reports moderate hair loss and fatigue. She had ruptured herniated disk in the past 2 years. She reports left leg pain. She reports "I feel like I am falling apart." She is looking into referral for multiple sclerosis. She reports epigastric pain and dysphagia for over 3 months. At her height of 5 foot 6.25 inches, her ideal body weight is 154 pounds. Her highest weight was 269 pounbds, BMI 43.2. She comes in 180 pounds from 182 pounds, 2 years ago. She has lost 2 pounds in 2 years. Her body mass index is reduced from 43.2 to 28.8. Lifetime weight loss of 89 pounds. Lifetime percent excess weight loss is 78 %. PAST MEDICAL HISTORY: 1. Morbid obesity due to excess calories, BMI 43.2 initial 2. Asthma. 3. Hypertension, resolved. 4. Insulin resistance, resolved. 5. Hypothyroidism. 6. Vitamin D deficiency. 7. Chronic back pain. 8. Diabetes type 2, resolved. 9. Depression 10. Panniculitis, resolved 11. Anxiety. 12. Cecal volvulus, resolved 13. Ruptured herniated disk PAST SURGICAL HISTORY: 1. Appendectomy. 2. Tonsillectomy. 3. Tubal ligation. 4. Left breast biopsy with lumpectomy. 5. Upper endoscopy. 6. Laparoscopic cholecystectomy. 7. Excision of forehead mass 8. Right hemicolectomy for cecal volvulus 9. Status post gastric bypass 10. Panniculectomy 11. Back surgery x 2 12. Diagnostic laparoscopy MEDICATIONS: Home Medications Medication Instructions Recorded Confirmed Albuterol Inhaler (Mhu) [Ventolin 1 puff INHALATION RT-Q6H PRN 10/27/15 04/28/21 Hfa Inhaler (Mhu)] ALPRAZolam [Xanax] 0.25 mg PO BID 12/28/15 04/28/21 Dextroamphetamine/Amphetamine 15 mg PO DAILY 04/28/21 04/28/21 [Adderall] HYDROcodone/APAP 5-325MG [[place] 1 tab PO DIRECTED 04/28/21 04/28/21 5-325] carisoprodoL [Soma] 350 mg PO DAILY 04/28/21 04/28/21 Previous Rx's Medication Instructions Recorded Acetaminophen Tab [Tylenol] 1,000 mg PO Q6HR #30 tab 01/13/20 Gabapentin [Neurontin] 600 mg PO TID PRN #9 cap 01/13/20 Lidocaine 5% Patch [Lidoderm 5% 1 patch TOPICAL DAILY #3 patch 01/13/20 Patch] ALLERGIES: Allergies Allergy/AdvReac Type Severity Reaction Status Date / Time amoxicillin trihydrate Allergy Rash/Hives Verified 01/21/20 14:27 [From Augmentin] Penicillins Allergy Rash/Hives Verified 01/21/20 14:27 potassium clavulanate Allergy Rash/Hives Verified 01/21/20 14:27 [From Augmentin] SOCIAL HISTORY: Lifelong non tobacco user. FAMILY HISTORY: Pertinent for diabetes, including obesity. REVIEW OF SYSTEMS: GASTROINTESTINAL: Gastroesophageal reflux disease now resolved. No reports of dumping syndrome. RESPIRATORY: History of obstructive sleep apnea now completely resolved. MUSCULOSKELETAL: Has diffuse osteoarthritis with increased lower back pain. ENDOCRINE: History of diabetes now resolved. Has hypothyroidism. CONSTITUTIONAL: Body mass index reduced from 43.2 to 26.3. [place] body weight of 154 pounds. Initial weight 269 pounds. HEENT: No reports of active dysphagia. No reports of troubles with vision or hearing. CARDIOVASCULAR: Hypertension resolved. No reports of chest pain or heart attack. NEURO: No reports of stroke or seizure disorders. PSYCH: No reports of depression with suicidal ideation. HEMATOLOGIC: No reports of DVTs or pulmonary emboli. SKIN: No rash. No skin cancer. PHYSICAL EXAM: VITAL SIGNS: 5 feet 6.25 inches, 180 pounds. BMI 28.8 Vital Signs Temp 97.5 F L 04/27/21 13:36 Pulse 76 04/27/21 13:36 Resp 16 04/27/21 13:36 BP 130/88 04/27/21 13:36 Pulse Ox GENERAL: Well-developed female in no acute distress. ABDOMEN: Obese, non-tender. Non-distendedn MUSCULOSKELETAL: No clubbing, cyanosis, or edema. HEENT: No scleral icterus. Extraocular movements grossly intact. Moist buccal mucosa. . NECK: Supple without lymphadenopathy. CHEST: Non-labored respirations with equal bilateral excursions. CARDIOVASCULAR: Regular rate and rhythm. NEURO: No focal or lateralizing signs. Cranial nerves II through XII grossly within normal limits. PSYCH: Appropriate affect. Alert and oriented to person, place and time. SKIN: Good skin turgor. Well perfused. ASSESSMENT: 1. Morbid obesity due to excess calories. 2. Body mass index 43.2 decreased to 28.8 3. Status post gastric bypass. 4. Status post panniculectomy 5. Iron deficiency anemia, symptomatic. 6. Dietary surveillance and counseling 7. Vitamin D deficiency 8. Cecal volvulus 9. Status post right hemicolectomy 10. Dysphagia 11. Epigastric pain 12. Multiple sclerosis 13. Herniated disk of the spine 14. Hair loss 15. Fatigue PLAN: 1. Recommend bariatric labs to assess malnutrition with recent hair loss and fatigue. 2. May benefit from referral for second opinion for neurosurgeon as she reports persistent back pain despite multiple interventions of her spine. 3. Recommend referral for multiple sclerosis with neurologist/rhuematology advised. 4. She reports epigastric pain and dysphagia. Recommend EGD where she elevated risk for perforation with dilation. Objective - Vital Signs Vital signs: Vital Signs Temp 97.5 F L 04/27/21 13:36 Pulse 76 04/27/21 13:36 Resp 16 04/27/21 13:36 BP 130/88 04/27/21 13:36 Pulse Ox Intake & Output 04/26/21 04/27/21 04/27/21 18:59 06:59 18:59 Weight 81.647 kg - Labs CBC & Chem 7: 04/27/21 14:34 04/27/21 14:34 Assessment/Plan Plan: Date: 04/27/21 Initial Weight: 121.835 kg Initial BMI: 43.0 Current Weight: 81.647 kg Current BMI: 28.8 Type of Surgery: Erlin-en-Y Gastric Bypass Total Volume in Band: Previous Volume: Volume Removed: Volume Added: Band Size:
[2021-04-27 15:36] LABS: INR 0.9 (<1.2); Partial Thromboplastin Time 24.4 sec (22.0-30.0); Prothrombin Time 10.1 sec (9.0-12.0)
[2021-04-27 18:56] LABS: HCT 39.7 % (37.2-46.3); HGB 12.4 g/dL (12.0-15.0); MCH 27.1 pg (27.0-32.0); MCHC 31.2 g/dL (32.0-37.0); MCV 86.7 fL (80.0-97.0); Mean Platelet Volume 10.4 fL (9.5-12.2); NRBC Per 100 WBC 0 /100 WBCS (0.0-0.0); Platelet Count 433 X 10*3/uL (140-440); RBC 4.58 X 10*6/uL (4.10-5.20); WBC 5.91 X 10*3/uL (4.50-10.00)
[2021-04-27 19:18] LABS: Chol/HDL Ratio 1.84 Ratio; LDL Cholesterol,Calculated 78.1 mg/dL (0.0-131.0); Prealbumin 24.3 mg/dL (18.0-42.0); VLDL Calculation 12.88 mg/dL (5.00-40.00)
[2021-04-27 19:21] LABS: % Iron Saturation 10.33 (12.00-45.00); ALT 12 U/L (8-44); AST 16 U/L (13-35); African American GFR (CKD) 114.9 (60.0-200.0); Albumin 4.4 g/dL (3.8-4.9); Albumin/Globulin Ratio 1.57 (1.60-3.17); Alkaline Phosphatase 97 U/L (41-126); BUN/Creat Ratio 13.86 Ratio (12.00-20.00); Blood Urea Nitrogen 10.2 mg/dL (9.0-27.0); Calcium 9.6 mg/dL (8.7-10.3); Carbon Dioxide 22.8 mmol/L (20.0-27.5); Chloride 102 mmol/L (96-109); Ferritin 10.3 ng/mL (10.0-291.0); Globulin 2.8 g/dL (1.6-3.3); Glucose 86 mg/dL (70-110); Iron 46 ug/dL (50-170); Magnesium 2.2 mg/dL (1.5-2.4); Non-African American GFR(CKD) 99.2 (60.0-200.0); Phosphorus 4.2 mg/dL (2.4-5.1); Potassium 4.4 mmol/L (3.5-5.5); Sodium 139 mmol/L (135-145); Total Iron Binding Capacity 448 ug/dL (228-460); Total Protein 7.3 g/dL (6.2-8.2)
[2021-04-28 13:09] LABS: Zinc, Serum 109 ug/dL (60-130)
[2021-04-29 06:48] LABS: Vitamin A 45 ug/dL (38-106)
[2021-04-29 17:17] LABS: Selenium 140 mcg/L (63-160)
[2021-05-01 13:16] LABS: Vit B1(Thiamine) 61 ug/L (38-122)
== END ==
LOC: BARWHC3 12:47
PROVIDERS: ATTEND Surgery Plastic and Reconstructive Surgery
DX: E66.01 Morbid (severe) obesity due to excess calories (principal); E89.1 Postprocedural hypoinsulinemia; D50.8 Other iron deficiency anemias; K91.2 Postsurgical malabsorption, not elsewhere classified; E44.0 Moderate protein-calorie malnutrition; E55.9 Vitamin D deficiency, unspecified; K74.1 Hepatic sclerosis; K50.90 Crohn's disease, unspecified, without complications; Z68.28 Body mass index [BMI] 28.0-28.9, adult; Z98.84 Bariatric surgery status; Z71.3 Dietary counseling and surveillance; K56.2 Volvulus; Z90.49 Acquired absence of other specified parts of digestive tract; R13.10 Dysphagia, unspecified; R10.13 Epigastric pain; G35 Multiple sclerosis; M51.9 Unspecified thoracic, thoracolumbar and lumbosacral intervertebral disc disorder; L65.9 Nonscarring hair loss, unspecified; R53.83 Other fatigue; F41.9 Anxiety disorder, unspecified; E03.9 Hypothyroidism, unspecified; F32.A Depression, unspecified; E11.22 Type 2 diabetes mellitus with diabetic chronic kidney disease; I12.9 Hypertensive chronic kidney disease with stage 1 through stage 4 chronic kidney disease, or unspecified chronic kidney disease; N18.9 Chronic kidney disease, unspecified; Z79.51 Long term (current) use of inhaled steroids; Z88.0 Allergy status to penicillin; Z88.1 Allergy status to other antibiotic agents
CPT/HCPCS: 80053; 80061; 82306; 82525; 82607; 82728; 82746; 83036; 83540; 83550; 83735; 83970; 84100; 84134; 84255; 84425; 84443; 84590; 84630; 85027; 85610; 85730; 99211

== ENCOUNTER → 2022-06-28 | Outpatient (CLI) | payer BC ==
[2022-06-28 13:36] VITALS: BP 165/105; PULSE 73; TEMP 97.8; BMI 28.8
--- NOTE | 2022-06-28 13:58 | P.BASOAP ---
Subjective Progress Note Date: 06/28/22 She has intractable nausea and vomiting. She has history of stricture. Plan for EGD. Recommend jolene gigest enzymes. She reports moderate stress in her life. Objective - Vital Signs Vital signs: Vital Signs Temp 97.8 F 06/28/22 13:27 Pulse 73 06/28/22 13:27 Resp BP 165/105 06/28/22 13:27 Pulse Ox FiO2 Intake & Output 06/27/22 06/28/22 06/28/22 18:59 06:59 18:59 Weight 81.647 kg Assessment/Plan Plan: Date: 06/28/22 Initial Weight: 121.835 kg Initial BMI: 43.0 Current Weight: 81.647 kg Current BMI: 28.8 Type of Surgery: Total Volume in Band: Previous Volume: Volume Removed: Volume Added: Band Size:
== END ==
LOC: BARWHC3 13:05
PROVIDERS: ATTEND Surgery Plastic and Reconstructive Surgery
DX: E66.01 Morbid (severe) obesity due to excess calories (principal); Z68.28 Body mass index [BMI] 28.0-28.9, adult; Z88.0 Allergy status to penicillin; Z88.8 Allergy status to other drugs, medicaments and biological substances
CPT/HCPCS: 99211

== ENCOUNTER 2022-07-03 07:29 | Day surgery (SDC) | payer BC ==
[2022-06-29 08:45] VITALS: BMI 29.2
--- NOTE | 2022-07-03 07:34 | P.GSHP ---
History of Present Illness H&P Date: 07/03/22 CHIEF COMPLAINT: GERD HISTORY OF PRESENT ILLNESS: The patient is a 46-year-old female who presents reports gastroesophageal reflux disease. Upper endoscopy was offered for further evaluation and management. PAST MEDICAL HISTORY: Please see list. PAST SURGICAL HISTORY: Please see list. MEDICATIONS: Please see list. ALLERGIES: Please see list. SOCIAL HISTORY: No illicit drug use FAMILY HISTORY: No reports of Crohn disease or ulcerative colitis. REVIEW OF ORGAN SYSTEMS: CONSTITUTIONAL: No reports of fevers or chills. GI: Denies any blood in stools or constipation. PHYSICAL EXAM: VITAL SIGNS: Stable GENERAL: Well-developed and pleasant in no acute distress. HEENT: No scleral icterus. Extraocular movements grossly intact. Moist buccal mucosa. NECK: Supple without lymphadenopathy. CHEST: Unlabored respirations. Equal bilateral excursions. CARDIOVASCULAR: Regular rate and rhythm. Distal 2+ pulses. ABDOMEN: Soft, nondistended. MUSCULOSKELETAL: No clubbing, cyanosis, or edema. ASSESSMENT: 1. Gastroesophageal reflux disease PLAN: 1. Recommend proceeding with an upper endoscopy Past Medical History Past Medical History: Asthma Additional Past Medical History / Comment(s): spinal stenosis, DDD, hx herniated disks, PREVIOUS HX OF DIABETES-PRIOR TO WEIGHT LOSS, hurts to swallow, "feels like something coming up when I lay down". "low iron and Vitamin D", surgery for "twisted" colon History of Any Multi-Drug Resistant Organisms: None Reported Past Surgical History: Appendectomy, Back Surgery, Bariatric Surgery, Bowel Resection, Breast Surgery, Cholecystectomy, Tonsillectomy, Tubal Ligation Additional Past Surgical History / Comment(s): left breast biopsy and lumpectomy, EGD, LAPAROSCOPIC KRISTIN EN Y, panniculectomy, back surgery for herniated disc (total 3 back surgeries) states "failed" back surgery, surgery for abdominal adhesions, rt hemicolectomy, lipoma removed from forehead, spinal stimulator May 2022- removed 5 days later Past Anesthesia/Blood Transfusion Reactions: Motion Sickness, Postoperative Nausea & Vomiting (PONV) Smoking Status: Never smoker - Past Family History Sister(s) Family Medical History: Cancer Additional Family Medical History / Comment(s): MELENOMA Mother Family Medical History: Hyperlipidemia, Hypertension, Rheumatoid Arthritis (RA) Father Family Medical History: Diabetes Mellitus Additional Family Medical History / Comment(s): AMITA DEGENERATION Medications and Allergies Home Medications Medication Instructions Recorded Confirmed Type Albuterol Inhaler [Ventolin Hfa 1 puff INHALATION RT-Q6H PRN 10/27/15 06/29/22 History Inhaler] Dextroamphetamine/Amphetamine 15 mg PO DAILY 04/28/21 06/29/22 History [Adderall] HYDROcodone/APAP 5-325MG [[place] 2 tab PO BID PRN 04/28/21 06/29/22 History 5-325] ALPRAZolam [Xanax] 0.5 mg PO DAILY 09/22/21 06/29/22 History Acetaminophen Tab [Tylenol] 500 mg PO Q6HR PRN 09/22/21 06/29/22 History Ferrous Sulfate [Feosol] 325 mg PO DAILY 09/22/21 06/29/22 History Gabapentin 600 mg PO TID 09/22/21 06/29/22 History Magnesium 200 mg PO DAILY 06/28/22 06/29/22 History Omeprazole 20 mg PO DAILY 06/28/22 06/29/22 History Allergies Allergy/AdvReac Type Severity Reaction Status Date / Time amoxicillin trihydrate Allergy Rash/Hives Verified 06/29/22 08:37 [From Augmentin] Penicillins Allergy Rash/Hives Verified 06/29/22 08:37 potassium clavulanate Allergy Rash/Hives Verified 06/29/22 08:37 [From Augmentin]
[2022-07-03] MEDS ORDERED: LACTATED RINGERS 1,000 ML IV SCH (07:39)
[2022-07-03 07:49] VITALS: RESP 16; TEMP 98
[2022-07-03] MEDS ORDERED: ONDANSETRON 4 MG/2 ML VIAL ONE (07:59)
[2022-07-03] MEDS ORDERED: SCOPOLAMINE 1 MG/72 HR PATCH TRANSDERM ONE (08:00)
[2022-07-03] MEDS ORDERED: ONDANSETRON 4 MG/2 ML VIAL IVP ONE (08:00)
[2022-07-03] MEDS ORDERED: LIDOCAINE 2% INJ 20 MG/ML (2 ML VIAL) ONE (08:02)
[2022-07-03] MEDS ORDERED: PROPOFOL 10 MG/ML 20 ML VIAL IV ONE (08:02)
--- NOTE | 2022-07-03 08:17 | P.PCN ---
Date of Procedure: 07/03/22 Description of Procedure: PREOPERATIVE DIAGNOSIS: Dysphagia. Epigastric abdominal pain s/p Erlin-en-y gastric bypass. POSTOPERATIVE DIAGNOSIS: Dysphagia. s/p Erlin-en-y gastric bypass. 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 Esophagogastrojejunoscopy with biopsies obtained gastric pouch SURGEON: Pita Gramajo MD ANESTHESIA: MAC. INDICATIONS: The patient is a 46-year-old female who presents with a history of dysphagia, gastric bypass including epigastric pain. Benefits and risks of the procedure were described. Informed consent was obtained. DESCRIPTION: The patient was brought into the endoscopy suite and laid in the left lateral decubitus position. After a timeout was confirmed, the procedure was initiated. An Olympus gastroscope was passed along the posterior oropharynx down to the distal esophagus where the squamocolumnar junction was unremarkable. The gastric pouch was entered. A gastrojejunal stricture of 18 mm was found as the adult gastroscope was 9.5 mm in size. A BlackStratus balloon dilator was placed through the scope. Final insufflation up to 20 mm was performed with a total of 2 minutes. The scope was advanced up to 60 cm from the incisors into the Rou x limb. The mucosa of the gastrojejunal anastomosis was intact. No chronic gastrojejunal marginal ulcer was encountered. No full-thickness injury was encountered. Biopsies were obtained gastric pouch. The GI tract was desufflated. The patient tolerated the procedure well. FINDINGS: Squamocolumnar junction unremarkable at 35 cm. Stricture of approximately 18 mm encountered. No chronic gastrojejunal ulceration encountered. Successful balloon dilatation to 20 mm. Diaphragmatic hiatus at 40 cm. Gastric pouch 5 cm. RECOMMENDATIONS: Upper endoscopy as needed Recommend diagnostic laparoscopy lysis of adhesions for persistent gastric abdominal pain and personal history of adhesions and gastric bypass Plan - Discharge Summary Discharge Rx Participant: No New Discharge Prescriptions: Continue Albuterol Inhaler [Ventolin Hfa Inhaler] 1 puff INHALATION RT-Q6H PRN PRN Reason: Shortness Of Breath Gabapentin 600 mg PO TID ALPRAZolam [Xanax] 0.5 mg PO DAILY Omeprazole 20 mg PO DAILY Magnesium 200 mg PO DAILY HYDROcodone/APAP 5-325MG [[place] 5-325] 2 tab PO BID PRN PRN Reason: Pain Dextroamphetamine/Amphetamine [Adderall] 15 mg PO DAILY Ferrous Sulfate [Iron (65 MG Elemental)] 325 mg PO DAILY Acetaminophen Tab [Tylenol] 500 mg PO Q6HR PRN PRN Reason: Pain Discharge Medication List Albuterol Inhaler [Ventolin Hfa Inhaler] 1 puff INHALATION RT-Q6H PRN 10/27/15 [History] Dextroamphetamine/Amphetamine [Adderall] 15 mg PO DAILY 04/28/21 [History] HYDROcodone/APAP 5-325MG [[place] 5-325] 2 tab PO BID PRN 04/28/21 [History] ALPRAZolam [Xanax] 0.5 mg PO DAILY 09/22/21 [History] Acetaminophen Tab [Tylenol] 500 mg PO Q6HR PRN 09/22/21 [History] Ferrous Sulfate [Iron (65 MG Elemental)] 325 mg PO DAILY 09/22/21 [History] Gabapentin 600 mg PO TID 09/22/21 [History] Magnesium 200 mg PO DAILY 06/28/22 [History] Omeprazole 20 mg PO DAILY 06/28/22 [History] Follow up Appointment(s[facility] [place] [facility] - 07[facility]/22 Patient Instructions/Handouts: *Surgery [facility] - Scopalamine Patch Instructions, Esophageal Dilation (DC) Activity/Diet/Wound Care/Special Instructions: Recommend warm beverages Discharge Disposition: HOME SELF-CARE
[2022-07-03 08:43] VITALS: BP 149/82; PULSE 69
== END 2022-07-03 09:00 | disposition home or self-care (01) ==
LOC: ORWHC2ENDO 07:29
PROVIDERS: ATTEND Surgery Plastic and Reconstructive Surgery
DX: K28.9 Gastrojejunal ulcer, unspecified as acute or chronic, without hemorrhage or perforation (principal); K56.699 Other intestinal obstruction unspecified as to partial versus complete obstruction; K21.9 Gastro-esophageal reflux disease without esophagitis; J45.909 Unspecified asthma, uncomplicated; K91.0 Vomiting following gastrointestinal surgery; E11.9 Type 2 diabetes mellitus without complications; Z90.89 Acquired absence of other organs; Z90.49 Acquired absence of other specified parts of digestive tract; Z98.51 Tubal ligation status; Z98.84 Bariatric surgery status; Z98.890 Other specified postprocedural states; Z82.49 Family history of ischemic heart disease and other diseases of the circulatory system; Z83.49 Family history of other endocrine, nutritional and metabolic diseases; Z83.3 Family history of diabetes mellitus; Z79.51 Long term (current) use of inhaled steroids; Z79.899 Other long term (current) drug therapy; Z88.0 Allergy status to penicillin; Z88.8 Allergy status to other drugs, medicaments and biological substances
CPT/HCPCS: 81025; 88305; 43239; 43245; J2405; J2704; J2001; C1726; 43249

== ENCOUNTER → 2022-07-19 | Outpatient (CLI) | payer BC ==
[2022-07-19 16:57] LABS: INR 0.9 (<1.2); Partial Thromboplastin Time 23.4 sec (22.0-30.0); Prothrombin Time 9.5 sec (9.0-12.0)
[2022-07-20 02:11] LABS: ALT 12 U/L (8-44); AST 15 U/L (13-35); African American GFR (CKD) 121.3 (60.0-200.0); Albumin 4.1 g/dL (3.8-4.9); Albumin/Globulin Ratio 1.58 (1.60-3.17); Alkaline Phosphatase 96 U/L (41-126); BUN/Creat Ratio 15.29 Ratio (12.00-20.00); Blood Urea Nitrogen 10.7 mg/dL (9.0-27.0); Calcium 8.9 mg/dL (8.7-10.3); Carbon Dioxide 25.7 mmol/L (20.0-27.5); Chloride 103 mmol/L (96-109); Globulin 2.6 g/dL (1.6-3.3); Glucose 86 mg/dL (70-110); LDL Cholesterol,Calculated 83.3 mg/dL (0.0-131.0); Magnesium 2.1 mg/dL (1.5-2.4); Non-African American GFR(CKD) 104.6 (60.0-200.0); Potassium 4.3 mmol/L (3.5-5.5); Sodium 139 mmol/L (135-145); Total Bilirubin <0.15 mg/dL (0.30-1.20); Total Protein 6.7 g/dL (6.2-8.2); VLDL Calculation 14.96 mg/dL (5.00-40.00)
[2022-07-20 02:28] LABS: HCT 36.1 % (37.2-46.3); HGB 11.2 g/dL (12.0-15.0); MCH 27.9 pg (27.0-32.0); Mean Platelet Volume 10.4 fL (9.5-12.2); NRBC Per 100 WBC 0 /100 WBCS (0.0-0.0); Platelet Count 405 X 10*3/uL (140-440); RBC 4.01 X 10*6/uL (4.10-5.20); RDW 15.1 % (11.5-14.5); WBC 5.92 X 10*3/uL (4.50-10.00)
[2022-07-20 03:09] LABS: Prealbumin 25.1 mg/dL (18.0-42.0)
[2022-07-20 03:35] LABS: Vitamin B12 <150.0 pg/mL (200.0-944.0)
[2022-07-20 09:38] LABS: Zinc, Serum 109 ug/dL (60-130)
[2022-07-21 05:09] LABS: Vitamin A 62 ug/dL (38-106)
[2022-07-21 07:22] LABS: Vit B1(Thiamine) 67 ug/L (38-122)
== END | disposition home or self-care (01) ==
LOC: LABWHC1 15:29
PROVIDERS: ATTEND Surgery Plastic and Reconstructive Surgery
DX: E66.01 Morbid (severe) obesity due to excess calories (principal); E89.1 Postprocedural hypoinsulinemia; D50.8 Other iron deficiency anemias; K91.2 Postsurgical malabsorption, not elsewhere classified; E44.0 Moderate protein-calorie malnutrition; E44.1 Mild protein-calorie malnutrition; E46 Unspecified protein-calorie malnutrition; E45 Retarded development following protein-calorie malnutrition; E55.9 Vitamin D deficiency, unspecified; K74.1 Hepatic sclerosis; N19 Unspecified kidney failure; T56.894A Toxic effect of other metals, undetermined, initial encounter; K50.90 Crohn's disease, unspecified, without complications; R00.1 Bradycardia, unspecified
CPT/HCPCS: 36415; 80053; 80061; 82306; 82525; 82607; 82746; 83036; 83735; 83970; 84100; 84134; 84255; 84425; 84443; 84590; 84630; 85027; 85610; 85730; 93005

== ENCOUNTER → 2022-07-19 | Outpatient (CLI) | payer BC ==
[2022-07-19 14:03] VITALS: PULSE 69; RESP 12; TEMP 97.7; BMI 30.6
[2022-07-19 14:07] VITALS: BP 156/107
--- NOTE | 2022-07-19 15:14 | P.BASOAP ---
Subjective Progress Note Date: 07/19/22 She has right sided pain, scar tissue along the RU abdomen. Recommend peritoneal adhesions excision with lysis of adhesions. Objective - Vital Signs Vital signs: Vital Signs Temp 97.7 F 07/19/22 14:01 Pulse 69 07/19/22 14:01 Resp 12 07/19/22 14:01 BP 156/107 07/19/22 14:01 Pulse Ox FiO2 Intake & Output 07/18/22 07/19/22 07/19/22 18:59 06:59 18:59 Weight 83.461 kg Assessment/Plan Plan: Date: 07/19/22 Initial Weight: 121.835 kg Initial BMI: 44.6 Current Weight: 83.461 kg Current BMI: 30.6 Type of Surgery: Total Volume in Band: Previous Volume: Volume Removed: Volume Added: Band Size:
== END ==
LOC: BARWHC3 13:45
PROVIDERS: ATTEND Surgery Plastic and Reconstructive Surgery
DX: E66.01 Morbid (severe) obesity due to excess calories (principal); Z68.30 Body mass index [BMI] 30.0-30.9, adult; Z88.0 Allergy status to penicillin; Z88.8 Allergy status to other drugs, medicaments and biological substances
CPT/HCPCS: 99211

== ENCOUNTER → 2023-12-05 | Outpatient (CLI) | payer BC ==
[2023-12-05 16:25] VITALS: BMI 32.3
[2023-12-05 16:26] VITALS: BP 164/98; PULSE 65; RESP 16; TEMP 98
--- NOTE | 2023-12-05 16:33 | P.BASOAP ---
Subjective Progress Note Date: 12/05/23 She developed abdominal pain 1 year ago. Her grandchild is having surgery. She was taking NSAIDs for tooth pain. She has weight gain of 14 pounds. 1 year. She needs an EGD. She started Wegovy 5 weeks. Wegovy does not affect her belly pain. Periumbiical pain to the right abdomen. Pain is occasional. Plan for Endoscopy. Wegovy is not helping with weight loss. CT possible. Food does not get stuck. Objective - Vital Signs Vital signs: Vital Signs Temp 98.0 F 12/05/23 16:06 Pulse 65 12/05/23 16:06 Resp 16 12/05/23 16:06 BP 164/98 12/05/23 16:06 Pulse Ox FiO2 Intake & Output 12/04/23 12/05/23 12/05/23 18:59 06:59 18:59 Weight 87.997 kg Assessment/Plan Plan: Date: 12/05/23 Initial Weight: 121.835 kg Initial BMI: 44.6 Current Weight: 87.997 kg Current BMI: 32.3 Type of Surgery: Total Volume in Band: Previous Volume: Volume Removed: Volume Added: Band Size:
== END ==
LOC: BARWHC3 15:01
PROVIDERS: ATTEND Surgery Plastic and Reconstructive Surgery
DX: E66.01 Morbid (severe) obesity due to excess calories (principal); Z68.32 Body mass index [BMI] 32.0-32.9, adult; Z88.0 Allergy status to penicillin; Z88.1 Allergy status to other antibiotic agents
CPT/HCPCS: 99211

== ENCOUNTER 2024-01-14 07:29 | Day surgery (SDC) | payer BC ==
[2024-01-11 09:53] VITALS: BMI 30.7
[2024-01-14] MEDS ORDERED: LIDOCAINE 1% (10MG/ML) FOR IV START INTRADERMA PRN (07:35)
[2024-01-14 08:00] VITALS: TEMP 97.4
[2024-01-14] MEDS: IV FLUID CONTINUATION 1,000 ML IV ONE (08:04)
[2024-01-14] MEDS: LACTATED RINGERS 1,000 ML IV SCH (08:04)
[2024-01-14 08:09] LABS: Glucose,Whole Blood 77 mg/dL (70-110)
[2024-01-14] MEDS ORDERED: PROPOFOL 10 MG/ML 20 ML VIAL IV ONE (08:10)
--- NOTE | 2024-01-14 08:12 | P.GSHP ---
History of Present Illness H&P Date: 01/14/24 CHIEF COMPLAINT: Esophageal stricture HISTORY OF PRESENT ILLNESS: The patient is a 48-year-old female who presents reports dysphagia. Upper endoscopy was offered for further evaluation and management. PAST MEDICAL HISTORY: Please see list. PAST SURGICAL HISTORY: Please see list. MEDICATIONS: Please see list. ALLERGIES: Please see list. SOCIAL HISTORY: No illicit drug use FAMILY HISTORY: No reports of Crohn disease or ulcerative colitis. REVIEW OF ORGAN SYSTEMS: CONSTITUTIONAL: No reports of fevers or chills. GI: Denies any blood in stools or constipation. PHYSICAL EXAM: VITAL SIGNS: Stable GENERAL: Well-developed and pleasant in no acute distress. HEENT: No scleral icterus. Extraocular movements grossly intact. Moist buccal mucosa. NECK: Supple without lymphadenopathy. CHEST: Unlabored respirations. Equal bilateral excursions. CARDIOVASCULAR: Regular rate and rhythm. Distal 2+ pulses. ABDOMEN: Soft, nondistended. MUSCULOSKELETAL: No clubbing, cyanosis, or edema. ASSESSMENT: 1. Esophageal stricture PLAN: 1. Recommend proceeding with an upper endoscopy with dilators. Past Medical History Past Medical History: Asthma, Diabetes Mellitus, GERD/Reflux, Hypertension, Skin Disorder Additional Past Medical History / Comment(s): spinal stenosis, DDD, hx herniated disks, PREVIOUS HX OF DIABETES-PRIOR TO WEIGHT LOSS, " Vitamin D", abdominal pain, new dx of psoriasis History of Any Multi-Drug Resistant Organisms: None Reported Past Surgical History: Appendectomy, Back Surgery, Bariatric Surgery, Bowel Resection, Breast Surgery, Cholecystectomy, Tonsillectomy, Tubal Ligation Additional Past Surgical History / Comment(s): left breast biopsy and lumpectomy, EGD, LAPAROSCOPIC KRISTIN EN Y, panniculectomy, back surgery for herniated disc (total 3 back surgeries) states "failed" back surgery, surgery for abdominal adhesions, rt hemicolectomy, lipoma removed from forehead, spinal stimulator May 2022- removed 5 days later, rt middle finger nerve repair, oral surgery 05/2023, CTS right hand 2020 Past Anesthesia/Blood Transfusion Reactions: Motion Sickness, Postoperative Nausea & Vomiting (PONV) Smoking Status: Never smoker - Past Family History Sister(s) Family Medical History: Cancer Additional Family Medical History / Comment(s): MELENOMA Mother Family Medical History: Thyroid Disorder Additional Family Medical History / Comment(s): hypoglycemic, RA Father Family Medical History: Diabetes Mellitus, Thyroid Disorder Additional Family Medical History / Comment(s): MAC DEGENERATION Medications and Allergies Home Medications Medication Instructions Recorded Confirmed Type Albuterol Inhaler [Ventolin Hfa 1 puff INHALATION RT-Q6H PRN 10/27/15 01/14/24 History Inhaler] HYDROcodone/APAP 5-325MG [[place] 1 tab PO DIRECTED PRN 04/28/21 01/14/24 History 5-325] ALPRAZolam [Xanax] 0.5 mg PO BID 09/22/21 01/14/24 History Gabapentin 600 mg PO TID 09/22/21 01/14/24 History Omeprazole 40 mg PO DAILY 06/28/22 01/14/24 History Losartan [Cozaar] 50 mg PO DAILY 12/05/23 01/14/24 History Semaglutide [Wegovy] 0.5 mg SQ WEEKLY 12/05/23 01/14/24 History Cholecalciferol (Vitamin D3) 150,000 mcg PO WEEKLY 01/11/24 01/14/24 History [Vitamin D3 (125 MCG = 5,000 IU)] Cyclobenzaprine [Flexeril] 10 mg PO BID 01/11/24 01/14/24 History Zolpidem [Ambien] 10 mg PO HS PRN 01/11/24 01/14/24 History ondansetron HCL [Ondansetron HCl] 8 mg PO DIRECTED PRN 01/11/24 01/14/24 History Allergies Allergy/AdvReac Type Severity Reaction Status Date / Time amoxicillin trihydrate Allergy Rash/Hives Verified 01/14/24 07:45 [From Augmentin] Penicillins Allergy Rash/Hives Verified 01/14/24 07:45 potassium clavulanate Allergy Rash/Hives Verified 01/14/24 07:45 [From Augmentin] Surgical - Exam Vital Signs Temp Pulse Resp BP Pulse Ox 97.4 F L 69 16 160/79 100 01/14/24 07:52 01/14/24 07:52 01/14/24 07:52 01/14/24 07:52 01/14/24 07:52
[2024-01-14 08:48] VITALS: BP 125/83; PULSE 69; RESP 17
--- NOTE | 2024-01-14 09:17 | P.PCN ---
Date of Procedure: 01/14/24 Description of Procedure: PREOPERATIVE DIAGNOSES: 1. Gastroesophageal reflux disease 2. Epigastric abdominal pain. 3. Dysphagia 4. History of gastric ulcers POSTOPERATIVE DIAGNOSES: 1. Jejunitis 2. Gastroesophageal reflux disease with esophagitis 3. Gastritis PROCEDURE PERFORMED: Esophagogastrojejunoscopy with biopsies on the gastric pouch, esophagus, jejunum SURGEON: Pita Gramajo MD ANESTHESIA: MAC. INDICATIONS: The patient is a 48-year-old female with prior history of Erlin-en-Y gastric bypass and increased epigastric abdominal pain including dysphagia. She presents with intermittent nausea and vomiting, particularly of the epigastric abdominal pain. With her history of Erlin-en-Y gastric bypass and gastric ulcers, upper endoscopy was offered for further evaluation and management. Benefits and risks described. Informed consent was obtained. DESCRIPTION: Patient was brought to the endoscopy suite and laid in the left lateral decubitus position. After adequate IV sedation, a bite block was placed. An Olympus gastroscope was passed along the posterior oropharynx down to the distal esophagus where the squamocolumnar junction was found at approximately 38 cm from the incisors. The diaphragmatic hiatus was found at 38 cm from the incisors. Her anastomosis was found at 42 cm, consistent with approximately 4 cm gastric pouch. No evidence of foreign body was found. No active gastrojejunal ulceration acute on chronic without bleeding was encountered. Biopsies along the gastric pouch, esophagus, and jejunum. The scope was passed to 60 cm of the Erlin limb. No remnant of blind jejunal limb was retained. The GI tract was desufflated. The patient tolerated the procedure well. FINDINGS: 1. No acute gastrojejunal ulceration 2. No foreign body found along the anastomosis. 3. No elongated jejunal blind pouch, both with presence of jejunitis with biopsies obtained 4. Squamocolumnar junction at 38 cm from the incisors. 5. Diaphragmatic hiatus at 38 cm from the incisors. 6. Gastroesophageal reflux disease with erosive esophagitis, LA grade B 7. Anastomosis at 42 cm from the incisors. 8. Gastric pouch 4 cm. 9. Chronic gastritis of the gastric pouch with biopsies obtained PLAN: 1. May need sinus laparoscopy with epigastric abdominal pain 2. Medication adjustment pending biopsies Plan - Discharge Summary Discharge Rx Participant: No New Discharge Prescriptions: Continue Albuterol Inhaler [Ventolin Hfa Inhaler] 1 puff INHALATION RT-Q6H PRN PRN Reason: Shortness Of Breath Gabapentin 600 mg PO TID ALPRAZolam [Xanax] 0.5 mg PO BID Omeprazole 40 mg PO DAILY Cyclobenzaprine [Flexeril] 10 mg PO BID Zolpidem [Ambien] 10 mg PO HS PRN PRN Reason: Insomnia Cholecalciferol (Vitamin D3) [Vitamin D3 (125 MCG = 5,000 IU)] 150,000 mcg PO WEEKLY ondansetron HCL [Zofran] 8 mg PO DIRECTED PRN PRN Reason: Nausea HYDROcodone/APAP 5-325MG [[place] 5-325] 1 tab PO DIRECTED PRN PRN Reason: Pain Losartan [Cozaar] 50 mg PO DAILY Semaglutide [Wegovy] 0.5 mg SQ WEEKLY Discharge Medication List Albuterol Inhaler [Ventolin Hfa Inhaler] 1 puff INHALATION RT-Q6H PRN 10/27/15 [History] HYDROcodone/APAP 5-325MG [[place] 5-325] 1 tab PO DIRECTED PRN 04/28/21 [History] ALPRAZolam [Xanax] 0.5 mg PO BID 09/22/21 [History] Gabapentin 600 mg PO TID 09/22/21 [History] Omeprazole 40 mg PO DAILY 06/28/22 [History] Losartan [Cozaar] 50 mg PO DAILY 12/05/23 [History] Semaglutide [Wegovy] 0.5 mg SQ WEEKLY 12/05/23 [History] Cholecalciferol (Vitamin D3) [Vitamin D3 (125 MCG = 5,000 IU)] 150,000 mcg PO WEEKLY 01/11/24 [History] Cyclobenzaprine [Flexeril] 10 mg PO BID 01/11/24 [History] Zolpidem [Ambien] 10 mg PO HS PRN 01/11/24 [History] ondansetron HCL [Zofran] 8 mg PO DIRECTED PRN 01/11/24 [History] Follow up Appointment(s)/Ref[facility] [place] [facility] - 01/30/24 3:00 pm Patient Instructions/Handouts: *Sur[facility] - (Anesthesia) Discharge Instructions Outpatient Surgery Discharge Disposition: HOME SELF-CARE
== END 2024-01-14 09:50 | disposition home or self-care (01) ==
LOC: ORWHC2ENDO 07:29
PROVIDERS: ATTEND Surgery Plastic and Reconstructive Surgery
DX: K29.50 Unspecified chronic gastritis without bleeding (principal); K21.00 Gastro-esophageal reflux disease with esophagitis, without bleeding; K52.9 Noninfective gastroenteritis and colitis, unspecified; E11.9 Type 2 diabetes mellitus without complications; J45.909 Unspecified asthma, uncomplicated; I10 Essential (primary) hypertension; F41.9 Anxiety disorder, unspecified; M54.50 Low back pain, unspecified; Z98.51 Tubal ligation status; Z90.49 Acquired absence of other specified parts of digestive tract; Z90.89 Acquired absence of other organs; Z83.49 Family history of other endocrine, nutritional and metabolic diseases; Z88.0 Allergy status to penicillin; Z88.1 Allergy status to other antibiotic agents; Z98.84 Bariatric surgery status; Z87.11 Personal history of peptic ulcer disease; Z79.891 Long term (current) use of opiate analgesic; Z79.83 Long term (current) use of bisphosphonates; Z79.899 Other long term (current) drug therapy
CPT/HCPCS: 81025; 88305; 43239; J2704

== ENCOUNTER → 2024-01-14 | Outpatient (CLI) | payer BC ==
[2024-01-14 11:19] LABS: INR 0.9 (<1.2); Partial Thromboplastin Time 24.9 sec (22.0-30.0)
[2024-01-14 15:08] LABS: HCT 40.9 % (37.2-46.3); HGB 12.8 g/dL (12.0-15.0); MCH 27.4 pg (27.0-32.0); MCHC 31.3 g/dL (32.0-37.0); MCV 87.6 FL (80.0-97.0); Mean Platelet Volume 10.5 FL (9.5-12.2); NRBC Per 100 WBC 0 X 10*3/uL (0.00-0.01); Platelet Count 394 X 10*3/uL (140-440); RBC 4.67 X 10*6/uL (4.10-5.20); RDW 16.1 % (11.5-14.5); WBC 6.99 X 10*3/uL (4.50-10.00)
[2024-01-14 15:52] LABS: % Iron Saturation 9.67 (12.00-45.00); ALT 15 U/L (8-44); AST 18 U/L (13-35); Albumin 4.3 g/dL (3.8-4.9); Albumin/Globulin Ratio 1.48 Ratio (1.60-3.17); Alkaline Phosphatase 113 U/L (41-126); Calcium 9.7 mg/dL (8.7-10.3); Carbon Dioxide 27.5 mmol/L (21.6-31.8); Chloride 103 mmol/L (96-109); Chol/HDL Ratio 1.91 Ratio; Ferritin 16.4 ng/mL (10.0-291.0); Globulin 2.9 g/dL (1.6-3.3); Glucose 86 mg/dL (70-110); Iron 44 UG/DL (50-170); LDL Cholesterol,Calculated 85.1 mg/dL (0.0-131.0); Phosphorus 3.8 mg/dL (2.4-5.1); Potassium 4.4 mmol/L (3.5-5.5); Prealbumin 24.5 mg/dL (18.0-42.0); Sodium 141 mmol/L (135-145); Total Bilirubin 0.3 mg/dL (0.3-1.2); Total Iron Binding Capacity 455 UG/DL (228-460); Total Protein 7.2 g/dL (6.2-8.2)
[2024-01-15 13:17] LABS: Zinc, Serum 153 ug/dL (60-130)
== END | disposition home or self-care (01) ==
LOC: LABWHC1 09:58
PROVIDERS: ATTEND Surgery Plastic and Reconstructive Surgery
DX: E66.01 Morbid (severe) obesity due to excess calories (principal); E89.1 Postprocedural hypoinsulinemia; D50.8 Other iron deficiency anemias; K91.2 Postsurgical malabsorption, not elsewhere classified; E44.0 Moderate protein-calorie malnutrition; E44.1 Mild protein-calorie malnutrition; E55.9 Vitamin D deficiency, unspecified; E45 Retarded development following protein-calorie malnutrition; K74.1 Hepatic sclerosis; T56.894A Toxic effect of other metals, undetermined, initial encounter; K50.90 Crohn's disease, unspecified, without complications; N19 Unspecified kidney failure
CPT/HCPCS: 36415; 80053; 80061; 82306; 82525; 82607; 82728; 82746; 83036; 83540; 83550; 83735; 83970; 84100; 84134; 84255; 84425; 84443; 84590; 84630; 85027; 85610; 85730